=== PATIENT | female | born 1950 | race Caucasian/White ===

== ENCOUNTER → 2018-08-19 08:05 | Outpatient (CLI) | payer BC, SELFPAY ==
[2018-08-19 10:37] LABS: Anion Gap 10 (5-15); BUN 18 mg/dL (7-18); BUN/Creat Ratio 21.9 RATIO (10-20); Calcium,Total 9.2 mg/dL (8.5-10.1); Chloride 104 mmol/L (98-107); Cholesterol 186 mg/dL (200); Creatinine, Serum 0.82 mg/dL (0.55-1.02); EST Glomerular Filtration Rate 74 mL/min (>60); Est Glom Filt Rate - Afr Amer 90 mL/min (>60); Glucose 97 mg/dL (74-106); High Density Lipoprotein 70 mg/dL; Potassium 4.1 mmol/L (3.5-5.1); Sodium Level 139 mmol/L (136-145); Triglycerides 190 mg/dL; Very Low Density Lipoprotein 38 mg/dL (5-40)
== END ==
PROVIDERS: Family Provider Family Medicine; PCP Family Medicine; Visit Provider Family Medicine
DX: I10 Essential (primary) hypertension (principal)
CPT/HCPCS: 36415; 80048; 80061

== ENCOUNTER → 2018-10-06 07:37 | Outpatient (CLI) | payer BC, SELFPAY ==
--- NOTE | 2018-10-06 07:41 | BI_ITS ---
MAMMOGRAPHY - BILATERAL SCREENING REASON FOR EXAM: Female, 67 years old. Routine annual screening examination. PERTINENT HISTORY: Personal history of breast cancer. Prior right lumpectomy with radiation and chemotherapy. Mother with breast cancer. TECHNIQUE: Digital bilateral breast antonio (3D mammographic acquisition) in the CC and MLO projections. 2-D mediolateral oblique (MLO) and craniocaudad (CC) views of both breasts were obtained. CAD: Full Field Digital Mammography with Computer Added Detection was performed. COMPARISON: Comparison is made with prior study dated July 23, 2017 and June 15, 2016. FINDINGS: Breast Composition: There are scattered areas of fibroglandular density. There are no dominant masses or suspicious calcifications. The patient is status post lumpectomy in the inferior deep slightly medial aspect of the right breast with resultant postoperative changes and scarring. Surgical clips are also seen in the right axillary region. Stable appearance of the small bilateral axillary lymph nodes. No other significant abnormalities are identified. There has been no significant change since the prior study. BI/SCREENING MAMM (CAD), BILAT IMPRESSION: Stable bilateral screening mammogram. Yearly follow-up mammogram recommended. (A) ASSESSMENT CATEGORY: BIRADS Category 2: Benign. A letter regarding these results will be sent to the patient by the facility within 30 days. Approximately 10% of breast cancers are not detected by mammography. A normal mammogram should not delay biopsy of a clinically suspicious abnormality. [id number] Electronically Signed: Rashid Iniguez MD at 9:39 EST , Service support ,
== END ==
PROVIDERS: Family Provider Family Medicine; PCP Family Medicine; Visit Provider Family Medicine
DX: Z12.31 Encounter for screening mammogram for malignant neoplasm of breast (principal); Z85.3 Personal history of malignant neoplasm of breast; Z80.3 Family history of malignant neoplasm of breast
CPT/HCPCS: 77063; 77067

== ENCOUNTER → 2018-10-20 10:46 | Outpatient (CLI) | payer BC, SELFPAY ==
[2015-09-05 23:55] VITALS: BMI 30.9
[2018-10-24 09:09] LABS: Alternaria alternata <0.10 kU/L (Class 0); Aspergillus fumigatus <0.10 kU/L (Class 0); Bahia Grass <0.10 kU/L (Class 0); Bermuda Grass <0.10 kU/L (Class 0); Bluegrass, Kentucky <0.10 kU/L (Class 0); Cat Hair/Dander, Standard <0.10 kU/L (Class 0); Cedar, Mountain <0.10 kU/L (Class 0); Cladosporium herbarum <0.10 kU/L (Class 0); Cockroach, American <0.10 kU/L (Class 0); D farinae Mite <0.10 kU/L (Class 0); D pteronyssinus <0.10 kU/L (Class 0); Dog Epithelia <0.10 kU/L (Class 0); Elm, American White <0.10 kU/L (Class 0); Hazelnut Tree <0.10 kU/L (Class 0); Hickory, White <0.10 kU/L (Class 0); Johnson Grass <0.10 kU/L (Class 0); Maple/Box Elder <0.10 kU/L (Class 0); Mucor racemosus <0.10 kU/L (Class 0); Mugwort <0.10 kU/L (Class 0); Mulberry, White <0.10 kU/L (Class 0); Oak, White <0.10 kU/L (Class 0); Penicillium chrysogen <0.10 kU/L (Class 0); Pigweed, Rough <0.10 kU/L (Class 0); Plantain, English <0.10 kU/L (Class 0); Ragweed, Short/Common <0.10 kU/L (Class 0); Sheep Sorrel(Dock) <0.10 kU/L (Class 0); Stemphylium herbarum <0.10 kU/L (Class 0); Sweet Gum <0.10 kU/L (Class 0); Sycamore, American <0.10 kU/L (Class 0)
[2018-10-24 11:00] LABS: Nettle <0.10 kU/L (Class 0)
== END ==
PROVIDERS: Family Provider Family Medicine; PCP Family Medicine; Visit Provider Family Medicine
DX: L30.9 Dermatitis, unspecified (principal)
CPT/HCPCS: 36415; 86003

== ENCOUNTER → 2019-07-07 08:55 | Outpatient (CLI) | payer BC, SELFPAY ==
[2019-07-07 10:17] LABS: Absolute Lymphocyte Count 7.93 X10^3/uL (0.83-4.51); Absolute Neutrophil Count 6.4 X10^3/uL (2.0-7.7); Basophil# 0.08 X10^3/uL; Basophil% 0.5 % (0-1); Eosinophil# 0.55 X10^3/uL; Eosinophils% 3.4 % (0-5); Hematocrit 46.7 % (37-47); Hemoglobin 14.8 g/dL (12.0-15.0); Lymphocyte # 7.93 X10^3/ul (4.0); Lymphocyte % 48.6 % (19-41); Mean Corp Hgb Conc 31.7 g/dL (32-36); Mean Corpuscular Hgb 30.5 pg (27.0-32.0); Mean Corpuscular Volume 96.1 fL (81-99); Mean Platelet Vol. 12.5 fl (6.2-12.0); Monocyte# 1.26 X10^3/uL; Monocyte% 7.7 % (0-10); NRBC Flagged by Analyzer 0 % (0-5); Neutrophil # 6.42 X10^3/uL (2.7-7.7); Neutrophil % 39.3 % (47-70); POSITIVE DIFFERENTIAL YES; POSITIVE MORPHOLOGY YES; Platelet Count 314 K/mm3 (150-450); RBC Distribution Width CV 12.9 % (11.6-14.6); RBC Distribution Width SD 45.7 fl (35.1-43.9); Red Blood Count 4.86 M/mm3 (4.2-5.4); White Blood Count 16.3 K/mm3 (4.4-11.0)
[2019-07-07 10:19] LABS: Differential Indicated SCAN CRITERIA MET
[2019-07-07 10:42] LABS: Reactive Lymphocyte 2+
[2019-07-07 10:46] LABS: AST(SGOT) 13 U/L (15-37); Alanine Aminotransfer ALT/SGPT 20 U/L (13-56); Albumin, Serum 3.3 g/dL (3.2-5.0); Alkaline Phosphatase 108 U/L (45-117); Anion Gap 8 (5-15); BUN 14 mg/dL (7-18); BUN/Creat Ratio 15.9 RATIO (10-20); Calcium,Total 9.1 mg/dL (8.5-10.1); Chloride 102 mmol/L (98-107); Creatinine, Serum 0.88 mg/dL (0.55-1.02); EST Glomerular Filtration Rate 68 mL/min (>60); Est Glom Filt Rate - Afr Amer 83 mL/min (>60); Globulin 4.8 g/dL (2.2-4.2); Glucose 95 mg/dL (74-106); Potassium 3.8 mmol/L (3.5-5.1); Protein, Total 8.1 g/dL (6.4-8.2); Sodium Level 137 mmol/L (136-145); T4 Free Direct 1.24 ng/dL (0.76-1.46); Thyroid Stim Hormone (TSH) 1.38 uIU/mL (0.358-3.74)
== END ==
PROVIDERS: Family Provider Family Medicine; PCP Family Medicine; Referring Provider Dermatology; Visit Provider Dermatology
DX: L20.89 Other atopic dermatitis (principal); Z79.899 Other long term (current) drug therapy
CPT/HCPCS: 36415; 80048; 80076; 84439; 84443; 85025

== ENCOUNTER → 2019-10-08 10:51 | Outpatient (CLI) | payer MEDICARE, SELFPAY ==
--- NOTE | 2019-10-08 11:00 | BI_ITS ---
MAMMOGRAPHY - BILATERAL DIAGNOSTIC REASON FOR EXAM: Female, 68 years old. RIGHT LUMPECTOMY 1997 WITH RAD AND CHEMO TX, NO CURRENT PROBLEMS, NO MOLES, PERSONAL HX CA AGE 45 AND FAM HX CA IN MOTHER AGE 58 PERTINENT HISTORY: Right breast lumpectomy with radiation therapy TECHNIQUE: Digital examination. Mediolateral oblique (MLO) and craniocaudad (CC) views of both breasts were obtained. CAD: COMPARISON: None. FINDINGS: Breast Composition: Scattered dense internal breast structure There are some surgical clips noted in the inferior medial aspect of the right breast due to a previous lumpectomy with radiation therapy for breast cancer. At this time there are some new microcalcifications seen in the left breast approximately 5 cm posterior to the left nipple. These calcifications are extremely difficult to visualize on lateral projection but could be located in the inferior medial aspect of the left breast at about the 7:00 position. Magnified compression spot images and a true lateral projection and a magnified compression spot imaging the MLO projection would be helpful for further evaluation. BI/SCREEN MAMM (CAD) W/GOLDEN BILAT IMPRESSION: Questionable new microcalcifications are noted in the inferior medial aspect of the left breast and additional mammogram imaging of the left breast is recommended for further evaluation ASSESSMENT CATEGORY: BIRADS Category 0: Incomplete. Need additional imaging evaluation. A letter regarding these results will be sent to the patient by the facility within 30 days. FOLLOW UP RECOMMENDATION: Approximately 10% of breast cancers are not detected by mammography. A normal mammogram should not delay biopsy of a clinically suspicious abnormality. Electronically Signed: Stefano Cordoba, at 18:55 EST Tel , Service support ,
== END ==
PROVIDERS: PCP Family Medicine; Referring Provider Family Medicine; Visit Provider Family Medicine
DX: Z12.31 Encounter for screening mammogram for malignant neoplasm of breast (principal)
CPT/HCPCS: 77063; 77067

== ENCOUNTER → 2019-10-12 12:12 | Outpatient (CLI) | payer MEDICARE, SELFPAY ==
--- NOTE | 2019-10-12 12:18 | BI_ITS ---
MAMMOGRAPHY - UNILATERAL DIAGNOSTIC: LEFT BREAST REASON FOR EXAM: Female, 68 years old. Abnormal screening mammogram. PERTINENT HISTORY: Personal history of breast cancer. Prior right lumpectomy with radiation therapy. TECHNIQUE: Compression and magnification views of the left breast were obtained. CAD: Full Field Digital Mammography with Computer Added Detection was performed. COMPARISON: Comparison is made with prior mammogram dated October 08, 2019. FINDINGS: Breast Composition: There are scattered areas of fibroglandular density. The calcifications in the central slightly medial aspect of the left breast appear to be vascular in nature. No other significant abnormalities are identified. BI/DIAG MAMM W/CAD, UNILAT IMPRESSION: The calcifications appear to be vascular in nature. One year follow-up mammogram recommended. (A) ASSESSMENT CATEGORY: BIRADS Category 2: Benign. A letter regarding these results will be sent to the patient by the facility within 30 days. Approximately 10% of breast cancers are not detected by mammography. A normal mammogram should not delay biopsy of a clinically suspicious abnormality. Electronically Signed: Rashid Iniguez, at 13:07 EST , Service support ,
--- NOTE | 2019-10-12 12:18 | US_ITS ---
STUDY: ULTRASOUND BREAST - LEFT REASON FOR EXAM: Female, 68 years old. Abnormal mammogram. TECHNIQUE: Axial and longitudinal images of the LEFT breast were performed with a high resolution ultrasound transducer. # OF IMAGES: 31 COMPARISON: Comparison is made with prior mammogram dated October 08, 2019. FINDINGS: LEFT Breast: There is a 6 mm x 6 mm x 6 mm hypoechoic irregular nodule with minimal posterior acoustical shadowing at the 12:00 position of the breast at 6 cm from the nipple. A biopsy is recommended. US/Breast Limited Unilateral IMPRESSION: 6 mm x 6 mm x 6 mm slightly irregular hypoechoic solid nodule at the 2:00 position of the breast at 6 cm from the nipple. Mild posterior shadowing. A biopsy is recommended. ASSESSMENT CATEGORY: BIRADS Category 4: Suspicious - Biopsy Should Be Considered. A letter regarding these results will be sent to the patient by the facility within 30 days. Electronically Signed: Rashid Iniguez, at 13:08 EST , Service support ,
== END ==
PROVIDERS: PCP Family Medicine; Referring Provider Family Medicine; Visit Provider Family Medicine
DX: N63.21 Unspecified lump in the left breast, upper outer quadrant (principal); Z85.3 Personal history of malignant neoplasm of breast
CPT/HCPCS: 76642; 77065

== ENCOUNTER → 2019-10-16 | Outpatient (CLI) | payer MEDICARE, SELFPAY ==
--- NOTE | 2019-10-16 | IMM_PTH ---
PATIENT: SHRUTHI RODRIGUEZ LOC: [facility] U#:[id number] AGE/SX: 68/F ROOM: RE10/16/[address]: Dr. Anil Howard MD : 1950 BED: DIS: 10/16/2019 SPEC #: [id number] RECD: 10/19/19 14:02 STATUS: ZAFAR REShira #: [id number] GERONIMO: 10/16/19 00:[address]: Anil Howard DEPT: IMMUNOHISTOCHEMISTRY RECD BY: Talia Alfonso ENTERED: 10/19/19 14:03 SP TYPE: IMMUNO OTHR DR: Dr. Link Carroll MD Tissues: Left breast, NOS Procedures: CALPONIN-1 (add) CK5-6 (add) CK8 (add) AYERS-2 (add) E-CAD (add) HER2 CASIE (add) KI-67 (add) P53 (add) WI (add) P40 (add) ER (initial) PHYSICIAN & INSTITUTION [address] [address] SPECIMEN INFORMATION: Tissue Source: Left breast tissue Clinical Info: Abnormal left breast ultrasound Specimen Number: [id number] CPT code: 03174, 25881 x7, 94622 x3 METHODOLOGY: Deparaffinized sections of prefer/formalin-fixed tissue or PAP/DQ stained slides are incubated with monoclonal/polyclonal antibodies/oligonucleotide probes. Localization is made via biotin free immunoperoxidase method. Appropriate controls are performed and reacted as expected. Results on target cell population are indicated in the following table: RESULTS: ANTIBODY / CLONE RESULT P53 (DO-7) positive, 5% Ki-67 (30-9) positive, 10% CK8 (75clsgS65) positive CK5-6 (D5 & 1684) negative Calponin-1 (QP191T) negative P40 (BC28) negative E-Cad (ECH-6) positive AYERS-2 (SP21) positive MORPHOMETRIC ANALYSIS ER (clone 6F11) >95% WI (clone 16/1E2) >95% Her-2Neu (clone CB11) 1+ The prognostic test for HER2 is performed on formalin-fixed paraffin embedded tissue. A 3+ (positive) staining pattern is defined as intense, homogeneous, complete, circumferential membranous staining in >10% of contiguous tumor cells. A similar weak (2+) staining pattern is interpreted as equivocal. LIZA follow-up testing is recommended for all equivocal cases. Positivity/negativity for ER/WI is reported if > or < 1% of the tumor cells are immuno- reactive, respectively. The ASCO/CAP criteria is used for scoring. Reference: Journal of Clinical Oncology, 2013; 31:6366-6021 & 2010; 16:5463-1620. Duration of fixation: 78 Hrs; Sample Adequate: Yes. These assays have not been validated on decalcified tissues. Results should be interpreted with caution given the likelihood of false negativity on decalcified specimens. These tests were developed and their performance characteristics determined by [facility]. They may not have been cleared or approved by the U.S. Food and Drug Administration. The FDA has determined that such clearance or approval is not necessary. The above immunohistochemical/dualISH markers are ordered and reviewed by the Pathologist. INTERPRETATION: Left breast, core biopsy: Invasive ductal carcinoma. Positive for estrogen receptors (favorable prognostic indicator). Positive for progesterone receptors (favorable prognostic indicator). Negative for overexpression of TXC4fvx. AM:frederick 10/20/19
--- NOTE | 2019-10-16 07:30 | BRBX_PTH ---
PATIENT: SHRUTHI RODRIGUEZ LOC: [facility] U#:[id number] AGE/SX: 68/F ROOM: RE10/16/[address]: Dr. Anil Howard MD : 1950 BED: DIS: 10/16/2019 SPEC #: [id number] RECD: 10/16/19 12:32 STATUS: ZAFAR BRETT #: [id number] GERONIMO: 10/16/19 07:[address]: Anil Howard DEPT: SURGICAL PATHOLOGY RECD BY: Moy Child ENTERED: 10/16/19 13:33 SP TYPE: BREAST BX OTHR DR: Dr. Link Carroll MD Tissues: Left breast, NOS Procedures: Surgery Specimen Level IV HEADER OPERATION: Left breast biopsy PRE-OP DIAGNOSIS: Abnormal left breast ultrasound TISSUE SUBMITTED: Left breast tissue FIXATION TIME: 78 hours MICROSCOPIC DIAGNOSIS Left breast, ultrasound-guided needle core biopsy: Invasive ductal carcinoma with the following characteristics: Maximal length - 8 millimeters Nuclear grade - 1-09/14 AM:frederick 10/19/19 COMMENT ER/VT/Yqg7hev studies are being performed on sections of tumor and the results from this study will be reported separately ([id number]). Reference is made to the patient's lower mid right breast, needle core biopsy from 1994 ([id number]) in which invasive mammary carcinoma was identified. MICROSCOPIC DESCRIPTION Slides are reviewed. GROSS DESCRIPTION Received in fixative is one container labeled with the patient's name and designated left breast. The specimen consists of one elongated fragment of villalobos soft tissue measuring 1 cm in length and 0.1 cm in diameter. The specimen is totally submitted in one cassette. / SJ:frederick 10/16/19 TC:0 CPT: 03975
[2019-10-16 08:49] VITALS: BMI 30.9
== END | disposition home or self-care (01) ==
LOC: LABSPEC 13:11
PROVIDERS: PCP Family Medicine; Referring Provider Surgery; Visit Provider Surgery
DX: R92.8 Other abnormal and inconclusive findings on diagnostic imaging of breast (principal)
CPT/HCPCS: 88305; 88341; 88342

== ENCOUNTER 2019-10-28 07:31 | Day surgery (SDC) | payer MEDICARE, SELFPAY ==
--- NOTE | 2019-10-26 02:17 | HP_ITS ---
Intake Vital Signs 10/26/19 Height 5 ft 10/26/19 Weight: 160 lb 10/26/19 BMI 31.2 10/26/19 BP 137/85 H 10/26/19 Blood Pressure Location Rt brachial 10/26/19 Position Sitting 10/26/19 Respiration 18 10/26/19 Pulse 79 10/26/19 Pulse Source Monitor 10/26/19 Temp 97.8 F 10/26/19 Temp Source Oral 10/26/19 Pulse Oximetry (%) 98 10/26/19 Oxygen Delivery Method room air Intake Visit Reasons: 1WK F/U Breast BX Chief Complaint: discuss surgery for breast cancer Trust Clerk Required: No Accompanied by: Is patient in pain?: No Allergies No Known Allergies Allergy (Verified 10/26/19 13:01) Medications dupilumab SUBCUT 10/13/19 [History Confirmed 10/26/19] lisinopril 10 mg-hydrochlorothiazide 12.5 mg tablet 1 tab PO DAILY tab 10/13/19 [History Confirmed 10/26/19] nystatin 100,000 unit/gram topical powder 1 applic TOPICAL BID #30 g 10/13/19 [Rx Confirmed 10/26/19] triamcinolone acetonide 0.1 % topical cream TOPICAL 10/13/19 [History Confirmed 10/26/19] PFSH Medical History Gout (Acute) Candidiasis of breast (Acute) Abnormal ultrasound of breast (Acute) Abnormal mammogram of left breast (Acute) Hypertension (Chronic) Hx of breast cancer (Acute) Tobacco abuse (Acute) Acute appendicitis with generalized peritonitis (Acute) Thickened endometrium (Acute) Breast cancer, left (Acute) Surgical History Hx of appendectomy (Acute) History of lumpectomy of right breast (Acute) History of left breast biopsy (Acute ~10/2019) Family History Mother Breast cancer Hypertension Diabetes Daughter Asthma Social History (Updated 10/26/19 @ 14:[address] Anil Howard MD) Smoking Status: Current every day smoker alcohol intake: never substance use type: does not use caffeine: Yes what type of physical activity do you participate in: walking frequency: 5-6 times per week HPI HPI HPI: SHRUTHI RODRIGUEZ, is a 68 F who presents to the office today for HPI HPI Surgical H&P: Yes HPI: SHRUTHI RODRIGUEZ is a 68 F who presents to the office today for surgical follow- up of her ultrasound-guided needle core biopsy upper outer quadrant left breast 2:00 +8 cm on my inspection. I performed that biopsy for her on October 16, 2019. I have been out of town for 1 week. She returns on my very first day back. Final pathology shows invasive ductal carcinoma with nuclear grade 1-2 over 3. Estrogen receptor 95%. Progesterone receptor 95%. HER-2/samuel 1+. HPI HPI: SHRUTHI RODRIGUEZ is a 68 F who presents to the office today for surgical consultation regarding an abnormal left breast mammogram and ultrasound. The patient is referred by her primary care physician Dr. Link Carroll and a written copy of her surgical consult recommendations will return to him. 68-year-old female. A0. Menarche at age 13. First child was born when she was 20. She did not breast-feed. She does have a personal history of upper outer quadrant right breast cancer at age 45 and she has a family history of breast cancer in her mother at age 58. She underwent previous breast conservation surgery right breast with lumpectomy and radiation treatment. She does not currently have an ongoing oncologic care or relationship. Looking back at bilateral screening mammograms of October 06, 2018 there is evidence of the right breast lumpectomy. Appears to be stable with small bilateral axillary lymph nodes. On that examination the written report suggested no acute findings. This appeared to be similar was compared to a screening mammogram of July 23, 2017. It is of note that October 06, 2018 there is no finding or discussion of abnormality upper outer quadrant left breast. On her current mammogram of October 08, 2019 however there is discussion regarding calcifications 5 cm posterior to the left nipple 7 o'clock position. Further evaluation with diagnostic films recommended in the diagnostic films suggested that these were vascular in nature. Additionally on the screening examination there was felt to be an ovoid area of increased density in the upper outer quadrant left breast which was seen previously and was felt to have increased in size. It was for that reason that a left breast ultrasound was recommended. On October 12, 2019 a left breast ultrasound was obtained suggesting a 6 x 6 x 6 mm hypoechoic irregular nodule with minimal posterior acoustic shadowing 12 o'clock position left breast +6 cm. Biopsy is recommended. Then in the final impression it says solid nodule at the 2 o'clock position left breast +6 cm. The images are labeled 2:00 +6 cm so I presume this to be the location ROS General General: Yes breast cancer; no weight change, appetite, fatigue or colon cancer HEENT HEENT: No difficulty swallowing, eye injury, eye surgery, swollen glands or hoarseness Endo Endocrine: No thyroid disease, diabetes mellitus, thyroid cancer, Hair loss, heat intolerance or cold intolerance Skin Skin: Yes rash; no changing moles Breast Breast: Yes left breast lump, abnormal mammogram and abnormal US; no right breast lump, nipple discharge, breast pain or breast enlargement Musc Musculoskeletal: No back problems, arthritis, rheumatoid arthritis, gout or joint pain Cardio Cardiovascular: Yes high blood pressure; no murmur, pacemaker, heart disease, atrial fibrillation, heart attack, heart stent, palpitations, shortness of breat with exertion or chest pain Psych Psychiatric: No depression, anxiety or hearing voices Resp Respiratory: No shortness of breath, No sleep apnea, No cough, No COPD, No asthma, No emphysema, No wheezing Gastro Gastrointestinal: No abdominal pain, No nausea or vomiting, No diarrhea, No constipation, No blood in stool, No acid reflux, No hemorrhoids, No ulcers, No gallbladder problem, No black,tarry stools Wallace Hematologic: No blood thinners, No blood disorders, No bleeding, No anemia, No blood clots Exam Const General: cooperative, comfortable, no acute distress Nutritional Appearance: overweight Orientation: alert, awake [facility] Head: normal to inspection Chest Breast Palpation: No nipple discharge Other: Right breast: Well-healed incision upper quadrant right breast. Postradiation changes. No focal mass. No axillary or clavicular adenopathy Left breast: No nipple discharge. No distortion. No palpable mass. No axillary or clavicular adenopathy Resp Effort & Inspection: normal respiratory effort Auscultation: clear to auscultation bilaterally Cardio Rate: regular rate Rhythm: regular rhythm Heart Sounds: no murmurs GI Palpation: soft, no hepatosplenomegaly Skin Other: Mild erythematous rash lower inner left inframammary fold suspicious for candidiasis Neuro General: alert, awake Extrem General: no calf tenderness bilaterally Psych Affect: normal affect Assessment & Plan Problems 1. Hx of breast cancer Z85.3 2. Abnormal ultrasound of breast R92.8 3. Candidiasis of breast B37.89 ROS General General: Yes breast cancer; no weight change, appetite, fatigue or colon cancer HEENT HEENT: No difficulty swallowing, eye injury, eye surgery, swollen glands or hoarseness Endo Endocrine: No thyroid disease, diabetes mellitus, thyroid cancer, Hair loss, heat intolerance or cold intolerance Skin Skin: Yes rash; no changing moles Breast Breast: Yes left breast lump, abnormal mammogram and abnormal US; no right breast lump, nipple discharge, breast pain or breast enlargement Musc Musculoskeletal: No back problems, arthritis, rheumatoid arthritis, gout or joint pain Cardio Cardiovascular: Yes high blood pressure; no murmur, pacemaker, heart disease, atrial fibrillation, heart attack, heart stent, palpitations, shortness of breat with exertion or chest pain Psych Psychiatric: No depression, anxiety or hearing voices Resp Respiratory: No shortness of breath, No sleep apnea, No cough, No COPD, No asthma, No emphysema, No wheezing Gastro Gastrointestinal: No abdominal pain, No nausea or vomiting, No diarrhea, No constipation, No blood in stool, No acid reflux, No hemorrhoids, No ulcers, No gallbladder problem, No black,tarry stools Wallace Hematologic: No blood thinners, No blood disorders, No bleeding, No anemia, No blood clots Exam Const General: cooperative, healthy appearing, comfortable, no acute distress Nutritional Appearance: average body habitus Orientation: alert, awake HENMT Head: normal to inspection Chest Breast Palpation: No nipple discharge Resp Effort & Inspection: normal respiratory effort Auscultation: clear to auscultation bilaterally Cardio Rate: regular rate Rhythm: regular rhythm Heart Sounds: no murmurs GI Palpation: soft, no hepatosplenomegaly Extrem General: no calf tenderness bilaterally Psych Affect: normal affect Assessment & Plan Problems 1. Malignant neoplasm of upper-outer quadrant of left breast in female, estrogen receptor positive C50.412; Z17.0 Plan Newly diagnosed upper outer quadrant left breast cancer 2:00 plus approximately 8 cm. This is likely at most an 8 mm lesion. I propose for the patient a ultrasound-guided wire localization with nuclear tracer and blue dye left axillary sentinel lymph node biopsy. I have discussed technique, benefit, risk, alternatives. She has had an opportunity to ask and have questions answered. She is aware that she is presenting at the onslaught of the coronavirus pandemic. As she has cancer we will pursue definitive surgical treatment. Cc: Dr. Link Howard M.D., F.A.C.S. Coding Level of Care Code Off vis,est,level 2 Diagnoses Malignant neoplasm of upper-outer quadrant of left breast in female, estrogen receptor positive C50.412; Z17.0 ??Breast location: upper outer quadrant of breast ??Estrogen receptor status: positive ??Patient sex: female ??Laterality: left 10/26/19 1417 <Electronically signed by Anil buenrostro MD> Date _ Anil Howard MD I have re-examined the patient. There are no clinical changes since date of exam.
[2019-10-26 13:01] VITALS: BMI 30.9
--- NOTE | 2019-10-28 | IMM_PTH ---
PATIENT: SHRUTHI RODRIGUEZ LOC: [facility] [place] U#:[id number] AGE/SX: 68/F ROOM: RE10/28/[address]: Dr. Anil Howard MD : 1950 BED: DIS: 10/28/2019 SPEC #: [id number] RECD: 11/02/19 14:43 STATUS: ZAFAR REShira #: [id number] GERONIMO: 10/28/19 00:[address]: Anil Howard DEPT: IMMUNOHISTOCHEMISTRY RECD BY: Talia Alofnso ENTERED: 11/02/19 14:44 SP TYPE: IMMUNO OTHR DR: Dr. Link Carroll MD Tissues: A - Axillary lymph node, NOS Procedures: CK7 (add) Pankeratin (initial) Pankeratin (add) PHYSICIAN & INSTITUTION [place] [id number] SPECIMEN INFORMATION: Tissue Source: A - Axillary sentinel lymph nodes, biopsy Clinical Info: Breast cancer, abnormal breast ultrasound Specimen Number: [id number] A1 & A2 CPT code: 22451, 32785 x3 METHODOLOGY: Deparaffinized sections of prefer/formalin-fixed tissue or PAP/DQ stained slides are incubated with monoclonal/polyclonal antibodies/oligonucleotide probes. Localization is made via biotin free immunoperoxidase method. Appropriate controls are performed and reacted as expected. Results on target cell population are indicated in the following table: RESULTS: ANTIBODY / CLONE RESULT Block A1 AE1-3 (AE1/AE3/PCK26) negative CK7 (OV-TL12/30) negative Block A2 AE1-3 (AE1/AE3/PCK26) negative CK7 (OV-TL12/30) negative These tests were developed and their performance characteristics determined by [facility]. They may not have been cleared or approved by the U.S. Food and Drug Administration. The FDA has determined that such clearance or approval is not necessary. The above immunohistochemical/dualISH markers are ordered and reviewed by the Pathologist. INTERPRETATION: A. Axillary sentinel lymph nodes, biopsy: Two out of two lymph nodes, negative for metastatic carcinoma. DAVY:frederick 11/03/19
--- NOTE | 2019-10-28 | AXNB_PTH ---
PATIENT: SHRUTHI RODRIGUEZ LOC: [facility] [place] U#:[id number] AGE/SX: 68/F ROOM: RE10/28/[address]: Dr. Anil Howard MD : 1950 BED: DIS: 10/28/2019 SPEC #: [id number] RECD: 10/28/19 11:04 STATUS: ZAFAR BRETT #: [id number] GERONIMO: 10/28/19 00:[address]: Anil Howard DEPT: SURGICAL PATHOLOGY RECD BY: Talia Alfonso ENTERED: 10/28/19 12:06 SP TYPE: AX NODE BX OTHR DR: Dr. Link Carroll MD Tissues: A - Axillary lymph node, NOS B - Left breast, NOS C - Left breast, NOS Procedures: Frozen Section (charge) Frozen Section Add'l ([facility]) Surgery Specimen Level IV Surgery Specimen Level V HEADER OPERATION: Ultrasound-guided wire localization lumpectomy with sentinel node PRE-OP DIAGNOSIS: Breast cancer; abnormal ultrasound of breast TISSUE SUBMITTED: A - Linn node sent for FS at 1056, B - Left breast tissue, wire anterior/long suture, lateral/short suture, C - Additional tissue left breast FROZEN SECTION DIAGNOSIS A. Axillary sentinel lymph nodes, biopsy: Two out of two lymph nodes negative for carcinoma. AM:frederick 10/28/19 Case has been reviewed in consultation with Dr. Mayo who concurs with the above diagnosis. IDC: MICROSCOPIC DIAGNOSIS A. Axillary sentinel lymph nodes, biopsy: Two out of two lymph nodes, negative for metastatic carcinoma. See comment. B. 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 See cancer summary below. C. Additional tissue left breast: Fragments of mature adipose tissue, negative for carcinoma. 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 Size (extent) of DCIS: Estimated size (extent) - The DCIS comprise about 25% of the total tumor volume. Number of blocks with DCIS - 3 Architectural pattern - comedo and solid Nuclear grade - grade 2 (intermediate) Necrosis - present, central (expansive comedo necrosis) Lobular carcinoma in situ - not identified. Tumor extension: Skin - skin is not present Nipple - not applicable Skeletal muscle - no skeletal muscle is present. Margin - Invasive carcinoma and ductal carcinoma in situ are 0.4 cm away from the closest inferior margin. Regional lymph nodes: Total number of lymph nodes examined - 2 Total number of sentinel lymph nodes examined - 2 Number of lymph nodes with macrometastasis, micrometastasis and isolated tumor cells - 0 Treatment effect - no known presurgical therapy Lymphvascular invasion - not identified Dermal lymphvascular invasion - not applicable Additional Pathologic Findings - - fibrocystic changes, adenosis and intraductal hyperplasia without atypia. - Hyalinized fibroadenoma with focal calcifications (1.1 x 0.5 cm, measured microscopically). Ancillary Studies: Previously performed on same tumor ([id number] / [id number]) [place]: positive (>95%) [place]: positive (>95%) Her2 samuel ([facility]): negative (1+) Microcalcifications - present in ductal carcinoma in situ and non-neoplastic tissue. Clinical History - Please make reference to previous specimen ([id number]) left breast, ultrasound-guided needle core biopsy with diagnosis of invasive ductal carcinoma. Radiologic findings: Abnormal left breast ultrasound. Pathologic Staging: pT1b pN0(sn) Mx The above summary is in compliance with [employer] (CAP) Cancer Protocols Checklist and [place] Joint Committee on Cancer (AJCC), Staging Manual, 8th Ed. COMMENT A. The lymph nodes are negative for metastatic carcinoma on multiple H & E levels and mmunohisto- chemical stains for cytokeratins ([id number]). Please make reference to previous specimen ([id number]) lower mid right breast, needle core biopsy with diagnosis of invasive mammary carcinoma. Case has been reviewed in consultation with Dr. Tomas who concurs with the above diagnosis. IDC:AM MICROSCOPIC DESCRIPTION Slides are reviewed. GROSS DESCRIPTION A - Received fresh for frozen section consultation labeled with the patient's name is a specimen designated sentinel node. The specimen consists of an irregular fragment of villalobos-yellow fibrofatty tissue measuring 3.5 x 2.5 x 1.5 cm. Dissection reveals two nodules resembling lymph nodes ranging in size from 1.5 to 2 cm. The nodules are bisected and totally submitted for frozen section consultation in two blocks. B - Received fresh for OR consultation labeled with the patient's name is a specimen designated left breast tissue. The specimen consists of a lumpectomy measuring 6.5 x 6 x 2 cm and weighing 38.7 gm. The specimen is differentially inked as follows: anterior - yellow, posterior - black, superior - blue, inferior - green, medial - red and lateral - orange. The specimen is serially sectioned to reveal an irregular white-villalobso lesion measuring 1 x 1 x 0.7 cm. The lesion is located 0.4 cm from its closest (inferior) margin of excision. The proximity of the lesion to its closest margin is conveyed to the surgeon intraoperatively. The remainder of the breast parenchyma is yellow and fatty. No additional lesions are identified. Assembly Leader sections are submitted in ten cassettes as follows: 1 & 2 - perpendicular inked margins, 3 & 4 - tumor, totally submitted, 5-10 - chemical sales representative sections of uninvolved breast parenchyma adjacent to and away from lesion. Note, sections are submitted after additional fixation. C - Received in fixative is one container labeled with the patient's name and designated additional tissue left breast. The specimen consists of multiple irregular fragments of villalobos-yellow soft tissue that in aggregate measure 5 x 5 x 0.3 cm. The specimen is totally submitted in two cassettes. / AM:frederick 10/29/19 TC:0 CPT: 68722 x2, 28127, 22042, 83414, 11607
[2019-10-28] MEDS: Lactated Ringers 1,000 ML 15 ML IV (07:00)
--- NOTE | 2019-10-28 07:24 | EKG12_ITS ---
Test Reason : PRE OP Blood Pressure : / mmHG Vent. Rate : 077 BPM Atrial Rate : 077 BPM P-R Int : 146 ms QRS Dur : 082 ms QT Int : 384 ms P-R-T Axes : 072 036 051 degrees QTc Int : 434 ms Normal sinus rhythm Normal ECG No previous ECGs available Confirmed by GAIL CRANDALL ([id number]), editorial assistant GEMMA GEORGE ([id number]) on 11/02/2019 11:36:32 AM Referred By: Anil Howard Confirmed By:GAIL CRANDALL
--- NOTE | 2019-10-28 07:34 | NM_ITS ---
PROCEDURE: NUCLEAR MEDICINE Injection Panora Node - LEFT breast(s). REASON FOR EXAM: Female, 68 years old. Left breast cancer. TECHNIQUE: Panora node localization using radionuclide methods of the LEFT breast(s) was performed following subcutaneous administration of 1.1 mCi of of sulfur colloid Tc-99m. FINDINGS: 1.1 mCi of technetium labeled sulfur colloid was injected subcutaneously in 4 equal aliquots in the upper outer quadrant of the left breast. NM/Lymph Node Injection Only IMPRESSION: 1.1 mCi of things stable sulfur colloid was injected subcutaneously in 4 equal aliquots in the upper outer aspect of the left breast. Electronically Signed: Rashid Iniguez, at 8:43 EDT , Service support ,
--- NOTE | 2019-10-28 07:48 | RAD_ITS ---
STUDY: X-RAY CHEST REASON FOR EXAM: Female, 68 years old. PRE OP TODAY; -- LEFT BREAST CA TECHNIQUE: PA and lateral views of the chest. COMPARISON: None. FINDINGS: Surgical clips are seen in the right axillary region. The lungs are clear and expanded. There is no demonstrated pleural abnormality. Normal size heart. Normal mediastinum and hector. Normal visualized pulmonary arteries. Normal visualized aortic arch and descending thoracic aorta. Normal visualized thoracic spine. Normal visualized ribs, clavicles, and shoulders. There is no demonstrated abnormality of the visualized soft tissue structures of the upper abdomen. RAD/Chest PA and Lateral IMPRESSION: Normal x-ray examination of the chest. Electronically Signed: Rashid Iniguez, at 8:25 EDT , Service support ,
[2019-10-28 07:54] VITALS: BP 131/59; PULSE 82; RESP 15; TEMP 36.7; O2SAT 97; BMI 33.3
[2019-10-28 08:30] LABS: Hematocrit 43.3 % (37-47); Hemoglobin 14.4 g/dL (12.0-15.0); Mean Corp Hgb Conc 33.3 g/dL (32-36); Mean Corpuscular Volume 93.1 fL (81-99); Mean Platelet Vol. 11.7 fl (6.2-12.0); Platelet Count 308 K/mm3 (150-450); RBC Distribution Width CV 13.2 % (11.6-14.6); Red Blood Count 4.65 M/mm3 (4.2-5.4); White Blood Count 20.8 K/mm3 (4.4-11.0)
[2019-10-28 08:42] LABS: ALB/GLOB Ratio 0.6 RATIO (0.9-2.4); AST(SGOT) 13 U/L (15-37); Alanine Aminotransfer ALT/SGPT 18 U/L (13-56); Alkaline Phosphatase 87 U/L (45-117); Anion Gap 6 (5-15); BUN 15 mg/dL (7-18); Calcium,Total 9.2 mg/dL (8.5-10.1); Chloride 104 mmol/L (98-107); Creatinine, Serum 0.79 mg/dL (0.55-1.02); EST Glomerular Filtration Rate 77 mL/min (>60); Est Glom Filt Rate - Afr Amer 94 mL/min (>60); Estimated Creatinine Clearance 39.75 ml/min; Globulin 4.7 g/dL (2.2-4.2); Glucose 106 mg/dL (74-106); Potassium 3.7 mmol/L (3.5-5.1); Protein, Total 7.7 g/dL (6.4-8.2); Sodium Level 137 mmol/L (136-145)
--- NOTE | 2019-10-28 09:32 | DCINST_ITS ---
Discharge Diet: No Restrictions Discharge Activity: May Not Drive - for 2-3 days or while taking narcotic pain meds. May shower in (days): 1 Lifting Restrictions: 10 pounds for 1 week. Call your doctor if your incision/area has: Continuous Slow Oozing, Sudden In creased Bleeding Call your doctor if you observe: Fever of 101 or Higher Suture Line Care: Avoid Pulling/Pushing, Avoid Pinching/Bending Remove Dressing in (days):: 1 - Remove bulky dressing tomorrow. May leave any opsite dressing for 3-4 days. Keep dressing in place until your follow-up appointment. Additional Dressing/Incision Instructions:: Remove bulky dressing tomorrow. May leave any opsite dressing for 3-4 days. Keep dressing in place until your follow-up appointment. Allergies/Adverse Reactions: Allergies No Known Allergies Allergy (Verified 10/28/19 07:45) Medications to take at Discharge dupilumab 2 ml SUBCUT QMONTH 10/13/19 lisinopril 10 mg-hydrochlorothiazide 12.5 mg tablet 1 tab PO DAILY tab 10/13/19 RX: Melatonin 10 mg PO QHS 10/27/19 Primary Care Physician: Link Carroll MD [Primary Care Provider] - Please Follow Up With: Anil Howard MD When: [phone] Office appt. 7-10 days
[2019-10-28] MEDS: Isosulfan Blue 1% 5 ML Vial (10:35)
--- NOTE | 2019-10-28 11:11 | BI_ITS ---
SURGICAL BREAST SPECIMEN RADIOGRAPH CLINICAL: Document presence of tissue clip marker in biopsy specimen. FINDINGS: Specimen shows presence of tissue clip marker. Electronically Signed: Rashid Iniguez, at 13:20 EDT , Service support , BI/Breast Biopsy Specimen
[2019-10-28] MEDS: Bupivacaine Mpf 0.5% 30 ML VIAL (11:20)
--- NOTE | 2019-10-28 11:35 | PCM.OPRPT ---
Problem List (1) Breast cancer Status: Acute Qualifiers: Breast location: upper outer quadrant of breast Estrogen receptor status: positive Patient sex: female Laterality: left Qualified Code(s): C50.412 - Malignant neoplasm of upper-outer quadrant of left female breast; Z17.0 - Estrogen receptor positive status [ER+] Report of Operation Date of Procedure: 10/28/19 Pre-Operative Diagnosis: Upper outer quadrant invasive ductal carcinoma left breast Post-Operative Diagnosis: Same Surgery/Procedure Performed:: Ultrasound-guided wire localization upper outer quadrant left breast with wire localized lumpectomy. Blue dye and nuclear tracer left axillary sentinel lymph node biopsy Description of Surgical Findings:: The patient had nuclear tracer injected per radiology earlier today. The patient was taken the operating placement table underwent general anesthesia. The left arm was carefully wrapped with soft roll and placed at right angles to the table. The left breast was prepped with alcohol and 3 cc of isosulfan blue dye was injected retroareolar. Massage was performed. Then the left breast and axilla were sterilely prepped and draped. Ultrasound was performed of the upper outer quadrant of the left breast and the density in question with marking clip was identified. Under ultrasound guidance I inserted a Kopan's needle and released the wire. Then I made a slightly oblique incision in the left axilla and sharp and blunt dissection was used to clearly identify the blue dye tracking. I used the neoprobe to confirm the hot lymph nodes. A conglomerate of blue lymph nodes were dissected free with sharp dissection electrocautery dissection. Hemostasis was obtained with hemoclips were needed. The specimen was then sent to pathology. Hemostasis was intact. Using the neoprobe and visualization I did not see any evidence of residual suspicious adenopathy. A curvilinear incision was made in the upper inner quadrant left breast localized by the wire. Sharp dissection carried down through the subcutaneous tissue. Circumferential dissection was performed. The lesion was completely excised. A long suture was placed laterally and a short suture superiorly and the wire exited anteriorly. Hemostasis obtained electrocautery. The periphery of the cavity was marked with hemoclips. Pathology reported to sentinel lymph nodes were negative on frozen section. Pathology reported that the lesion was excised and there was a 4 mm inferior margin. Each wound was closed with a deep layer of interrupted 3-0 Vicryl. The skin edges were approximated running septic of 4-0 Monocryl. Steri-Strips Telfa OpSite dressings applied followed by bulky dry dressings. The otoniel-incisional area for both incisions had been anesthetized with 0.5% Marcaine a total of 30 cc used. The patient was taken to the recovery room in satisfactory edition without apparent complication Specimens include left axillary sentinel lymph nodes x2. Left breast lumpectomy. Drains none. Blood loss minimal. Anil Howard M.D., F.A.C.S. Type of Anesthesia:: General Anesthesiologist: Carmenza Ray
[2019-10-28 11:46] VITALS: BP 131/59; BP 142/76; PULSE 106; RESP 20; TEMP 36.6; O2SAT 95
[2019-10-28 12:00] VITALS: BP 121/61; BP 131/59; PULSE 89; RESP 14; O2SAT 99
[2019-10-28 12:15] VITALS: BP 131/59; BP 137/76; PULSE 87; RESP 16; O2SAT 99
[2019-10-28 12:23] VITALS: BP 131/59; BP 133/72; PULSE 81; RESP 16; TEMP 37.2; O2SAT 95
[2019-10-28] MEDS: HYDROcodone Bitartrate/Apap 5/325 Tablet PO (13:02)
[2019-10-28 13:53] VITALS: BP 130/75; BP 131/59; PULSE 87; RESP 18; TEMP 37.1; O2SAT 96
== END 2019-10-28 14:11 | disposition home or self-care (01) ==
LOC: SDC 07:31 → AC 07:32
PROVIDERS: PCP Family Medicine; Referring Provider Surgery; Visit Provider Surgery
PROC: (CPT 19301; principal; 2019-10-28 09:45)
DX: C50.412 Malignant neoplasm of upper-outer quadrant of left female breast (principal); Z17.0 Estrogen receptor positive status [ER+]; B37.89 Other sites of candidiasis; I10 Essential (primary) hypertension; E66.3 Overweight; Z68.31 Body mass index [BMI] 31.0-31.9, adult; Z87.891 Personal history of nicotine dependence; Z85.3 Personal history of malignant neoplasm of breast; Z80.3 Family history of malignant neoplasm of breast
CPT/HCPCS: 19301; 38500; 38792; 71046; 76098; 80053; 85027; 88305; 88307; 88331; 88332; 88341; 88342; 93005; A9541; J7120; Q9968

== ENCOUNTER → 2020-02-23 08:53 | Outpatient (CLI) | payer MEDICARE, SELFPAY ==
[2019-12-01 13:41] VITALS: BMI 32.9
[2019-12-03 13:08] VITALS: BMI 32.9
[2019-12-10 11:08] VITALS: BMI 33.0
--- NOTE | 2020-02-23 08:56 | BD_ITS ---
STUDY: DUAL ENERGY X-RAY ABSORPTIOMETRY / DXA REASON FOR EXAM: Female, 69 years old. EMT B- CHEMO INDUCED AT 49 -- HX OF BREAST CANCER MULTIPLE TIMES- TAKES AROMATASE INHIBITOR -- HX OF SMOKING 20+ YRS AGO -- TAKES HCTZ -- TAKES CALCIUM AND MULTIVITAMIN -- DOES LITTLE EXERCISE -- LAINA OF 0.5 INCHES TECHNIQUE: Bone Mineral Density (BMD) measurements of lumbar spine and bilateral hips were obtained. COMPARISON: None. FINDINGS: Lumbar Spine (L1-L4): g/cm2 (0.984) / T-score (-1.5) / Z-score (0.1) Findings are suggestive of osteopenia with a low fracture risk. Left Femur Total: g/cm2 (0.760) / T-score (-2.0) / Z-score (-0.7) Left Femoral Neck: g/cm2 (0.730) / T-score (-2.2) / Z-score (-0.7) Right Femur Total: g/cm2 (0.769) / T-score (-1.9) / Z-score (-0.6) Right Femoral Neck: g/cm2 (0.714) / T-score (-2.3) / Z-score (-0.8) BD/Dexa Bone Density Study IMPRESSION: The patient is considered osteopenic as outlined below according to World Gerson Organization (WHO) criteria with a high fracture risk. Reference Information: The T-score is the number of standard deviations above or below the standard which is normal for young adults at their peak bone mineral density. The World Health Organization (WHO) interprets the T-scores as follows: Above -1 Normal bone density Between -1 and -2.5 Osteopenia Equal to / or below -2.5 Osteoporosis As a practical clinical guideline, osteopenia may be graded as follows: Mild -1 through -1.5 Moderate -1.6 through -2.0 Severe -2.1 through -2.4 The Z-score is the number of standard deviations above or below age-matched controls. A Z-score of less than -1.5 would be considered abnormal. References: 1. NIH Osteoporosis and Related Bone Diseases http://www.osteo.org 2. International Society for Clinical Densitometry http://www.iscd.org 3. National Osteoporosis Foundation http://www.nof.org Electronically Signed: Rashid Iniguez, at 15:09 EDT , Service support ,
== END ==
PROVIDERS: PCP Family Medicine; Referring Provider Internal Medicine Hematology & Oncology; Visit Provider Internal Medicine Hematology & Oncology
DX: C50.912 Malignant neoplasm of unspecified site of left female breast (principal); Z78.0 Asymptomatic menopausal state
CPT/HCPCS: 77080

== ENCOUNTER → 2020-10-10 08:51 | Outpatient (CLI) | payer MEDICARE, SELFPAY ==
[2019-12-03 13:08] VITALS: BMI 32.9
[2019-12-10 11:08] VITALS: BMI 33.0
[2020-10-04 13:29] VITALS: BMI 27.2
--- NOTE | 2020-10-10 08:55 | BI_ITS ---
MAMMOGRAPHY - BILATERAL DIAGNOSTIC REASON FOR EXAM: Female, 69 years old. History of prior right lumpectomy with radiation and chemotherapy. PERTINENT HISTORY: Personal history of breast cancer. Mother with breast cancer. TECHNIQUE: Digital bilateral breast antonio (3D mammographic acquisition) in the CC and MLO projections. 2-D mediolateral oblique (MLO) and craniocaudad (CC) views of both breasts were obtained. CAD: Full Field Digital Mammography with Computer Added Detection was performed. COMPARISON: Comparison is made with prior study dated 10/08/2019 FINDINGS: Breast Composition: There are scattered areas of fibroglandular density. There are no dominant masses or suspicious calcifications. Since prior examination, the patient underwent lumpectomy in the upper outer quadrant of the left breast. Surgical clips are also seen in the left axillary region. Postoperative scarring is seen. There is also evidence of prior lumpectomy in the inferior medial portion of the right breast. Surgical clips are also seen in the right axillary region. No other significant abnormalities are identified. BI/DIAG MAMM W/CADHERLINDA IMPRESSION: Status post prior lumpectomy in the upper outer quadrant of the left breast with resection of the previously seen nodular density. One year follow-up recommended. (A) ASSESSMENT CATEGORY: BIRADS Category 2: Benign. A letter regarding these results will be sent to the patient by the facility within 30 days. Approximately 10% of breast cancers are not detected by mammography. A normal mammogram should not delay biopsy of a clinically suspicious abnormality. Electronically Signed: Rashid Iniguez MD at 10:10 EST , Service support ,
== END ==
PROVIDERS: PCP Family Medicine; Referring Provider Student in an Organized Health Care Education/Training Program; Visit Provider Student in an Organized Health Care Education/Training Program
DX: C50.912 Malignant neoplasm of unspecified site of left female breast (principal); Z85.3 Personal history of malignant neoplasm of breast
CPT/HCPCS: 77062; 77066; G0279

== ENCOUNTER → 2020-12-30 09:16 | Outpatient (CLI) | payer MEDICARE, SELFPAY ==
[2019-12-10 11:08] VITALS: BMI 33.0
[2020-11-29 14:58] VITALS: BMI 27.3
[2020-12-30 10:45] LABS: Anion Gap 4 (5-15); BUN 16 mg/dL (7-18); BUN/Creat Ratio 18.2 RATIO (10-20); Calcium,Total 10.1 mg/dL (8.5-10.1); Chloride 101 mmol/L (98-107); Cholesterol 153 mg/dL (200); Creatinine, Serum 0.88 mg/dL (0.55-1.02); EST Glomerular Filtration Rate 68 mL/min (>60); Est Glom Filt Rate - Afr Amer 82 mL/min (>60); Glucose 107 mg/dL (74-106); High Density Lipoprotein 73 mg/dL; Potassium 3.8 mmol/L (3.5-5.1); Sodium Level 136 mmol/L (136-145); Triglycerides 139 mg/dL; Very Low Density Lipoprotein 28 mg/dL (5-40)
== END ==
PROVIDERS: PCP Family Medicine; Referring Provider Family Medicine; Visit Provider Family Medicine
DX: I10 Essential (primary) hypertension (principal)
CPT/HCPCS: 36415; 80048; 80061

== ENCOUNTER → 2021-05-26 10:28 | Outpatient (CLI) | payer MEDICARE, SELFPAY ==
[2019-12-10 11:08] VITALS: BMI 33.0
--- NOTE | 2021-05-26 10:31 | RAD_ITS ---
EXAM: XR BILATERAL RIBS AND AP CHEST, 3 OR MORE VIEWS : 1950 CLINICAL INDICATION: RIB INJURY TECHNIQUE: Frontal and oblique views of the bilateral ribs and frontal view of the chest. This report was created using [employer] ([employer] report generation technology. COMPARISON: None. FINDINGS: LUNGS AND PLEURAL SPACES: Prior surgical changes of the right lung. No consolidation or edema. No pneumothorax. No effusion. HEART: Unremarkable. Cardiac silhouette not enlarged. MEDIASTINUM: Central airways and mediastinal contour are unremarkable. BONES/JOINTS: Unremarkable. No evidence of displaced rib fractures. RAD/Ribs Michael Min 4V w/PA Chest IMPRESSION: Negative chest and bilateral ribs series. at 0723 Reported and signed by: Gilmar Leonard MD Electronically Signed: Gilmar Leonard MD at 7:22 EDT Tel , Service support ,
== END ==
PROVIDERS: PCP Family Medicine; Referring Provider Family Medicine; Visit Provider Family Medicine
DX: S29.9XXA Unspecified injury of thorax, initial encounter (principal); X58.XXXA Exposure to other specified factors, initial encounter
CPT/HCPCS: 71111

== ENCOUNTER 2021-11-09 09:55 | Outpatient (CLI) | payer MEDICARE, SELFPAY ==
[2019-12-10 11:08] VITALS: BMI 33.0
--- NOTE | 2021-11-09 09:56 | BI_ITS ---
MAMMOGRAPHY - BILATERAL SCREENING REASON FOR EXAM: Female, 71 years old. Routine annual screening examination. PERTINENT HISTORY: Personal history of breast cancer. History of prior bilateral lumpectomies with chemotherapy and radiation therapy. TECHNIQUE: Digital bilateral breast golden (3D mammographic acquisition) in the CC and MLO projections. 2-D mediolateral oblique (MLO) and craniocaudad (CC) views of both breasts were obtained. CAD: Full Field Digital Mammography with Computer Added Detection was performed. COMPARISON: Comparison is made with prior study dated 10/10/2020 and 10/12/2019. FINDINGS: Breast Composition: There are scattered areas of fibroglandular density. Once again, the patient is status post lumpectomy in the deep upper lateral aspect of the left breast. Surgical clips are seen in the left axillary region. Stable postoperative scarring and deformity. There is also evidence of a prior lumpectomy in the inferior medial portion of the right breast as well as surgical intervention in the right axillary region. Postoperative scarring and deformity is seen. There has been essentially no change. No other significant abnormalities are identified. There has been no significant change since the prior study. BI/SCRN MAMM (CAD)W/GOLDEN BILAT IMPRESSION: Stable bilateral screening mammogram. Yearly follow-up mammogram recommended. (A) ASSESSMENT CATEGORY: BIRADS Category 2: Benign. A letter regarding these results will be sent to the patient by the facility within 30 days. Approximately 10% of breast cancers are not detected by mammography. A normal mammogram should not delay biopsy of a clinically suspicious abnormality. [id number] Electronically Signed: Rashid Iniguez MD at 10:52 EDT ,
== END 2021-11-09 23:59 | disposition home or self-care (01) ==
LOC: OPBI 09:56
PROVIDERS: PCP Family Medicine; Referring Provider Internal Medicine Hematology & Oncology; Visit Provider Internal Medicine Hematology & Oncology
DX: Z12.31 Encounter for screening mammogram for malignant neoplasm of breast (principal); Z85.3 Personal history of malignant neoplasm of breast
CPT/HCPCS: 77063; 77067

== ENCOUNTER 2022-01-24 13:01 | Emergency (ER) | payer MEDICARE, SELFPAY ==
[2019-12-10 11:08] VITALS: BMI 33.0
[2022-01-24 13:02] VITALS: BP 112/71; PULSE 131; RESP 20; TEMP 38.3; O2SAT 95; BMI 29.2
--- NOTE | 2022-01-24 13:43 | EDS_ITS ---
HPI History of Present Illness Chief Complaint: Nausea/Vomiting Informant: patient Narrative Narrative: -year-old female presenting to the emergency department with fever. She states that last Saturday she developed moist cough nausea poor taste and fever. She sta chicho she saw primary care on Saturday had a negative COVID test and a negative influenza test. She states she was told it was a virus. She states she has not been able to eat because of her nausea. She states that she has not taken anything today for her fever. She states that she cannot believe that this is viral and needs it to be cured. [facility] Medical History Acute appendicitis with generalized peritonitis Breast cancer Candidiasis of breast CLL (chronic lymphocytic leukemia) Gout Hypertension 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 Thickened endometrium Tobacco abuse Home Medications dupilumab [Dupixent Syringe] 2 ml subcut UD 10/13/19 [History Last Taken 09/29/19] lisinopril 10 mg-hydrochlorothiazide 12.5 mg tablet 1 tab PO DAILY htn 10/13/19 [History Last Taken Unknown] melatonin 10 mg sublingual tablet 10 mg PO QHS sleep 10/27/19 [History Last Taken Unknown] calcium-vitamin D3-vitamin K 500 mg-1,000 unit-40 mcg chewable tablet 1 ea PO DAILY 10/13/20 [History Last Taken Unknown] nystatin 100,000 unit/gram topical powder 1 applic topical BID #30 grams 10/14/20 [Rx Last Taken Unknown] anastrozole 1 mg tablet 1 mg PO DAILY 90 days #90 tabs 02/28/21 [Rx Last Taken Unknown] amoxicillin 875 mg-potassium clavulanate 125 mg tablet 875 mg PO Q12H #20 TABLETS 01/24/22 [Rx Last Taken Unknown] azithromycin 250 mg tablet (Zithromax Z-Joe) See Rx Instructions PO .COMPLEX #6 tabs 01/24/22 [Rx Last Taken Unknown] ondansetron 4 mg disintegrating tablet 4 mg PO Q6H PRN PRN Nausea #15 tabs 01/24/22 [Rx Last Taken Unknown] potassium chloride 20 mEq tablet,extended release 40 meq PO DAILY 5 days #10 tabs 01/24/22 [Rx Last Taken Unknown] Allergy/AdvReac Type Severity Reaction Status Date / Time No Known Allergies Allergy Verified 01/24/22 13:02 Family History Mother Diabetes Breast cancer Hypertension Daughter Asthma Pulmonary hypertension Surgical History History of left breast biopsy (~10/2019) History of lumpectomy of left breast (~10/2019) Hx of appendectomy Social History Smoking Status: Former smoker alcohol intake: never substance use type: does not use caffeine: Yes what type of physical activity do you participate in: walking frequency: 5-6 times per week shelby/buddhism: Temple seatbelt use: always do you feel safe at home: Yes ROS ROS ED Constitutional Constitutional ED: Reports fever(s) and sweats; Denies chills or weight loss Eyes Eyes: Denies change in vision or diplopia ENT ENT ED: Denies ear pain, rhinorrhea or sore throat Cardiovascular Cardiovascular: Denies chest pain, orthopnea, palpitations or racing heartbeat Respiratory/Chest Respiratory/Chest: Reports cough; Denies dyspnea or orthopnea Gastrointestinal Gastrointestinal: Reports nausea; Denies abdominal pain, diarrhea or vomiting Genitourinary Genitourinary ED: Denies dysuria, hematuria or urinary frequency Musculoskeletal Musculoskeletal: Reports myalgias; Denies arthralgias Integumentary Denies abscess or rash Neurologic Neurologic: Denies headache(s) or weakness Psychiatric Psychiatric: Denies anxiety, depression, suicidal ideation or suicidal thoughts Endocrine Endocrinology: Denies polydipsia, polyphagia or polyuria Allergic/Immunologic Allergic/Immunologic ED: Denies mouth swelling, tongue swelling or urticaria EXAM Physical Exam Const Vital Signs: 01/24/22 13:02 01/24/22 15:14 Temperature 101.0 F H Temperature Source Temporal Pulse Rate 131 H 103 H Respiratory Rate 20 H 18 Blood Pressure 112/71 121/63 H Blood Pressure Mean 84 82 Pulse Ox 95 94 Oxygen Delivery Method Room Air Room Air Positive well nourished and well developed General Appearance ED: well developed HEENT Reports normocephalic, head/scalp atraumatic and moist mucous membranes Eyes PERRL and EOMs intact bilaterally Neck no lymphadenopathy, supple and no JVD Resp normal respiratory effort and clear to auscultation bilaterally Cardio regular rhythm and no murmurs Rate: tachycardic GI normal to inspection, nondistended, normoactive bowel sounds and non-tender Palpation: soft Back/Spine no CVA tenderness and normal ROM Extremity normal to inspection General Extremety ED: Negative for edema General Extremity: Negative for edema Neuro oriented x3 and CN's II-XII intact bilaterally Sensorium / Orientation: alert Motor Exam: strength 5/5 throughout Psych mental status grossly normal Mood & Affect: tearful; Negative for depressed Skin no rashes or lesions noted and no wounds MDM MDM MDM Narrative Medical decision making narrative: White count 60.3 with 1 glass. Lactic acid is normal at 0.9. MP shows a a creatinine of 0.8 with a BUN of 14 and potassium 3. Urinalysis is negative. My interpretation of the chest x-ray is a left upper lobe infiltrate. COVID influenza swabs were negative. After fluids Toradol and acetaminophen her heart rate is down. She is not requiring any supplemental oxygen. Patient was started on Augmentin and azithromycin as well as albuterol MDI. We need to replace some potassium and I will also write for some Zofran to help with her nausea. Return if worsening or concerns Lab Data Attestation: I reviewed the patient's lab results. Labs: Laboratory Results - last 24 hr 01/24/22 01/24/22 01/24/22 14:05 14:05 14:05 WBC 60.3 H* RBC 3.59 L Hgb 11.0 L Hct 32.6 L MCV 90.8 MCH 30.6 MCHC 33.7 RDW Std Deviation 47.6 H RDW Coeff of Carissa 14.3 Plt Count 613 H MPV 10.1 Immature Gran % (Auto) [employer] OPERATOR Neut % (Auto) FURNACE UTILITY OPERATOR Lymph % (Auto) FURNACE UTILITY OPERATOR [place] % (Auto) FURNACE UTILITY OPERATOR Eos % (Auto) FURNACE UTILITY OPERATOR Baso % (Auto) FURNACE UTILITY OPERATOR Absolute Neuts (auto) 26.5 H Absolute Lymphs (auto) 28.34 H Total Counted 100 Neutrophils % (Manual) 42 L Band Neutrophils % 2 Lymphocytes % (Manual) 47 H Monocytes % (Manual) 7 Promyelocytes % 1 H Blast Cells % 1 H* Nucleated RBC % [employer]URNACE UTILITY OPERATOR Diff Path Review May foll Platelet Estimate MKD INC RBC Morphology NORM C+C Sodium 134 L Potassium 3.0 L Chloride 97 L Carbon Dioxide 30.0 Anion Gap 7 BUN 14 Creatinine 0.80 Estim Creat Clear Calc 47.67 Est GFR (MDRD) Af Amer 91 Est GFR (MDRD) Non-Af 76 BUN/Creatinine Ratio 17.5 Glucose 133 H Lactic Acid 0.9 Calcium 9.4 Total Bilirubin 0.80 AST 16 ALT 17 Alkaline Phosphatase 304 H Total Protein 7.4 Albumin 1.8 L Globulin 5.6 H Albumin/Globulin Ratio 0.3 L Urine Color Urine Clarity Urine pH Ur Specific [place] Urine Protein Urine Glucose (UA) Urine Ketones Urine Occult Blood Urine Nitrite Urine Bilirubin Urine Urobilinogen Ur Leukocyte Esterase Urine RBC Urine WBC Ur Squamous Epith Cells Urine Bacteria Urine Mucus 01/24/22 14:25 WBC RBC Hgb Hct MCV MCH MCHC RDW Std Deviation RDW Coeff of Carissa Plt Count MPV Immature Gran % (Auto) Neut % (Auto) Lymph % (Auto) [place] % (Auto) Eos % (Auto) Baso % (Auto) Absolute Neuts (auto) Absolute Lymphs (auto) Total Counted Neutrophils % (Manual) Band Neutrophils % Lymphocytes % (Manual) Monocytes % (Manual) Promyelocytes % Blast Cells % Nucleated RBC % Diff Path Review Platelet Estimate RBC Morphology Sodium Potassium Chloride Carbon Dioxide Anion Gap BUN Creatinine Estim Creat Clear Calc Est GFR (MDRD) Af Amer Est GFR (MDRD) Non-Af BUN/Creatinine Ratio Glucose Lactic Acid Calcium Total Bilirubin AST ALT Alkaline Phosphatase Total Protein Albumin Globulin Albumin/Globulin Ratio Urine Color Thea Urine Clarity Sl. Cloudy Urine pH 6.0 Ur Specific [place] 1.010 Urine Protein 30 H Urine Glucose (UA) Normal Urine Ketones Negative Urine Occult Blood 50 H Urine Nitrite Negative Urine Bilirubin 1 H Urine Urobilinogen 1 H Ur Leukocyte Esterase 100 H Urine RBC 0-5 SEEN Urine WBC 0-5 SEEN Ur Squamous Epith Cells 0-5 SEEN Urine Bacteria 1+ Urine Mucus RARE Radiography Diagnostic Testing: Clinical Impression(s) from Imaging Studies Chest X-Ray 01/24/22 14:27 IMPRESSION: Infiltrate in the left lung apex suggestive of pneumonic infiltration although radiographic follow-up is recommended following treatment. Electronically Signed: Rashid Iniguez MD at 14:40 EDT , Discharge Plan Triage Chief Complaint: Nausea/Vomiting ED Provider: Torin Qureshi Dx/Rx/DC Orders Clinical Impression: Pneumonia Instructions: ED Pneumonia (Adult) Prescriptions: New amoxicillin-pot clavulanate [amoxicillin-pot clavulanate] 875-125 mg tablet 875 mg PO Q12H Qty: 20 0RF azithromycin [Zithromax Z-Joe] 250 mg tablet See Rx Instructions .ROUTE .COMPLEX Qty: 6 0RF Rx Instructions: For 250 mg dose pack: take 500 mg today (day 1), then 250 mg for 4 days (days 2-5) ondansetron [ondansetron] 4 mg tablet,disintegrating 4 mg PO Q6H PRN PRN (Reason: Nausea) Qty: 15 0RF potassium chloride 20 mEq tablet extended release 40 meq PO DAILY 5 Days Qty: 10 0RF No Action lisinopril-hydrochlorothiazide 10-12.5 mg tablet 1 tab PO DAILY Label Comments: take 1 tablet by mouth once daily dupilumab 2 ml subcut UD Label Comments: on hold. every other week Rx Instructions: TWICE A MONTH (EVERY 2 WEEKS) nystatin 100,000 unit/gram powder 1 applic TOPICAL BID Qty: 30 1RF melatonin 10 MG tablet 10 mg PO QHS calcium-vitamin D3-vitamin K 1 EACH tablet,chewable 1 ea PO DAILY anastrozole 1 mg tablet 1 mg PO DAILY 90 Days Qty: 90 3RF Primary Care Provider: Link Carroll Referrals: Link Carroll MD [Primary Care Provider] - 1 Week Disposition Disposition: Home, Self Care
[2022-01-24] MEDS: 0.9% Normal Saline 1,000 ML 1000 ML IV (14:18)
[2022-01-24] MEDS: Ketorolac 30 MG/ML Syringe IV (14:18)
[2022-01-24] MEDS: Acetaminophen 500 MG Tablet 1000 MG PO (14:18)
[2022-01-24 14:20] LABS: Hematocrit 32.6 % (37-47); Mean Corp Hgb Conc 33.7 g/dL (32-36); Mean Corpuscular Hgb 30.6 pg (27.0-32.0); Mean Corpuscular Volume 90.8 fL (81-99); Mean Platelet Vol. 10.1 fl (6.2-12.0); POSITIVE COUNT YES; POSITIVE DIFFERENTIAL YES; POSITIVE MORPHOLOGY YES; Platelet Count 613 K/mm3 (150-450); RBC Distribution Width CV 14.3 % (11.6-14.6); RBC Distribution Width SD 47.6 fl (35.1-43.9); Red Blood Count 3.59 M/mm3 (4.2-5.4)
[2022-01-24 14:25] LABS: White Blood Count 60.3 K/mm3 (4.4-11.0)
--- NOTE | 2022-01-24 14:27 | RAD_ITS ---
STUDY: X-RAY CHEST REASON FOR EXAM: Female, 71 years old. Cough and fever, pt. States calcium shown on PET scan previously TECHNIQUE: Single AP portable view of the chest. COMPARISON: Comparison is made with prior study dated 05/26/2021. FINDINGS: Surgical clips are seen in both axillary regions. Airspace disease is seen in the left lung apex. With the patient''s history, this most likely represents pneumonic infiltration although radiographic follow-up following treatment is recommended. There is no demonstrated pleural abnormality. Normal size heart. Normal mediastinum and hector. Normal visualized pulmonary arteries. Normal visualized aortic arch and descending thoracic aorta. There are degenerative changes of the visualized thoracic spine. Normal visualized ribs, clavicles, and shoulders. There is no demonstrated abnormality of the visualized soft tissue structures of the upper abdomen. RAD/Chest 1 View (Portable) IMPRESSION: Infiltrate in the left lung apex suggestive of pneumonic infiltration although radiographic follow-up is recommended following treatment. Electronically Signed: Rashid Iniguez MD at 14:40 EDT ,
[2022-01-24 14:34] LABS: Color, Urine Amber (Yellow); Glucose, Dipstick Normal (Normal); Ketone-Dipstick Negative (Negative); Leukocyte Esterase-Dipstick 100 /ul (Negative); Nitrite-Dipstick Negative (Negative); Occult Blood-Urine 50 /ul (Negative); Protein-Dipstick 30 mg/dl (Negative); Urine Clarity Sl. Cloudy (Clear); Urine Urobilinogen 1 mg/dl (Normal)
[2022-01-24 14:36] LABS: Urine Bilirubin Dipstick 1 mg/dL (Negative)
[2022-01-24 14:37] LABS: ALB/GLOB Ratio 0.3 RATIO (0.9-2.4); AST(SGOT) 16 U/L (15-37); Alanine Aminotransfer ALT/SGPT 17 U/L (13-56); Albumin, Serum 1.8 g/dL (3.2-5.0); Alkaline Phosphatase 304 U/L (45-117); Anion Gap 7 (5-15); BUN 14 mg/dL (7-18); BUN/Creat Ratio 17.5 RATIO (10-20); Calcium,Total 9.4 mg/dL (8.5-10.1); Chloride 97 mmol/L (98-107); EST Glomerular Filtration Rate 76 mL/min (>60); Est Glom Filt Rate - Afr Amer 91 mL/min (>60); Estimated Creatinine Clearance 47.67 ml/min; Globulin 5.6 g/dL (2.2-4.2); Glucose 133 mg/dL (74-106); Protein, Total 7.4 g/dL (6.4-8.2); Sodium Level 134 mmol/L (136-145)
[2022-01-24 14:40] LABS: Bacteria 1+ /hpf (None Seen); Mucous, Urine RARE /hpf (<or=2+); Red Blood Cells-Urine 0-5 SEEN /hpf (0-5); Squamous Epithelial Cells - UA 0-5 SEEN /hpf (5-10); White Blood Cells 0-5 SEEN /hpf (0-5)
[2022-01-24 14:44] LABS: Lactic Acid 0.9 mmol/L (0.4-1.9)
[2022-01-24 14:52] LABS: Scan Smear per Review Criteria MANUAL DIFF
[2022-01-24 14:53] LABS: Differential Indicated MANUAL DIFF
[2022-01-24 14:56] LABS: Blast 1 % (0-0); Lymphocyte 47 % (19-41); Monocyte 7 % (0-10); Neutrophil-Band 2 % (0-5); Neutrophil-Segmented 42 % (47-70); Platelet Estimate MKD INC (ADEQ); Promyelocyte 1 % (0-0); Total Cells Counted 100 (MANUAL DIFF)
[2022-01-24 14:57] LABS: Red Cell Morphology NORM C+C NORMAL (NORM C&C)
[2022-01-24 15:01] LABS: Absolute Lymphocyte Count 28.34 X10^3/uL (0.83-4.51); Absolute Neutrophil Count 26.5 X10^3/uL (2.0-7.7)
[2022-01-24 15:14] VITALS: BP 121/63; PULSE 103; RESP 18; O2SAT 94
[2022-01-24 15:36] VITALS: BP 123/56; PULSE 100; RESP 16; O2SAT 100
[2022-01-24] MEDS: INHALER, ASSIST DEVICES 1 EACH SPACER INHALATION (15:53)
--- NOTE | 2022-01-24 15:54 | ED.RN ---
PT EDUCATED ON WRITTEN AND VERBAL DISCHARGE INSTRUCTIONS. PT VERBALIZES UNDERSTANDING AND DENIES ANY FURTHER QUESTIONS. PT IV D/C AND COVERED WITH 2X2 GAUZE AND PAPER TAPE. THIS RN CONTACTED RETAIL PHARM[facility], REPORTS PT PRESCRIPTIONS ARE READY. PT PLACED IN WHEELCHAIR AND AWAITING EDUCATION FROM RESPIRATORY THERAPIST ON SPACER AND INHALER USE.
[2022-01-26 10:37] LABS: Pathologist Review Reviewed
--- NOTE | 2022-01-26 21:10 | SUR.HOLD ---
call pt per dr. byers, if not feeling better and/or feverish pt needs to be seen again and possibly admitted.
--- NOTE | 2022-01-26 21:22 | ED.RN ---
dr. byers aware that pt that pt states she is feeling better and is not coming in, states that she has a doctor appt next week to follow up. explained that cx are positive and may need iv atb.
== END 2022-01-24 16:00 | disposition home or self-care (01) ==
PROVIDERS: Emergency Provider Emergency Medicine; PCP Family Medicine; Visit Provider Emergency Medicine
DX: J18.9 Pneumonia, unspecified organism (principal); I10 Essential (primary) hypertension; Z79.899 Other long term (current) drug therapy; Z87.891 Personal history of nicotine dependence
CPT/HCPCS: 71045; 80053; 81001; 83605; 85025; 87040; 87149; 87186; 87428; 94640; 96361; 96374; 99284; J7030; A4216

== ENCOUNTER → 2022-11-12 | Outpatient (CLI) | payer MEDICARE, SELFPAY ==
[2019-12-10 11:08] VITALS: BMI 33.0
--- NOTE | 2022-11-12 13:15 | BI_ITS ---
MAMMOGRAPHY - BILATERAL SCREENING REASON FOR EXAM: Female, 72 years old. Routine annual screening examination. PERTINENT HISTORY: Personal history of breast cancer. Prior bilateral lumpectomy with chemotherapy and radiation treatment. TECHNIQUE: Digital bilateral breast golden (3D mammographic acquisition) in the CC and MLO projections. 2-D mediolateral oblique (MLO) and craniocaudad (CC) views of both breasts were obtained. CAD: Full Field Digital Mammography with Computer Added Detection was performed. COMPARISON: Comparison is made with prior study of November 09, 2021 and October 10, 2020. FINDINGS: Breast Composition: There are scattered areas of fibroglandular density. Once again, the patient is status post lumpectomy in the deep upper lateral aspect of the left breast with resultant breast deformity and skin thickening. Surgical clips are seen in the left axillary region. There is also evidence of prior lumpectomy in the inferior medial portion of the right breast with postoperative scarring and dystrophic calcification. Surgical clips are also seen in the right axilla. No other significant abnormalities are identified. There has been no significant change since the prior study. BI/SCRN MAMM (CAD)W/GOLDEN BILAT IMPRESSION: Stable bilateral screening mammogram. Yearly follow-up mammogram recommended. (A) ASSESSMENT CATEGORY: BIRADS Category 2: Benign. A letter regarding these results will be sent to the patient by the facility within 30 days. Approximately 10% of breast cancers are not detected by mammography. A normal mammogram should not delay biopsy of a clinically suspicious abnormality. [id number] Electronically Signed: Rashid Iniguez MD at 14:42 EDT ,
== END | disposition home or self-care (01) ==
LOC: OPBI 13:13
PROVIDERS: PCP Family Medicine; Visit Provider Student in an Organized Health Care Education/Training Program
DX: Z12.31 Encounter for screening mammogram for malignant neoplasm of breast (principal); Z85.3 Personal history of malignant neoplasm of breast
CPT/HCPCS: 77063; 77067

== ENCOUNTER → 2023-07-23 | Outpatient (CLI) | payer MEDICARE, SELFPAY ==
[2019-12-10 11:08] VITALS: BMI 33.0
[2023-07-23 10:43] LABS: Anion Gap 8 (5-15); BUN 14 mg/dL (7-18); BUN/Creat Ratio 15.9 RATIO (10-20); Chloride 103 mmol/L (98-107); Cholesterol 125 mg/dL (200); Creatinine, Serum 0.88 mg/dL (0.55-1.02); EST Glomerular Filtration Rate 68 mL/min (>60); Est Glom Filt Rate - Afr Amer 82 mL/min (>60); Glucose 109 mg/dL (74-106); High Density Lipoprotein 74 mg/dL; Potassium 3.7 mmol/L (3.5-5.1); Sodium Level 137 mmol/L (136-145); Triglycerides 113 mg/dL; Very Low Density Lipoprotein 23 mg/dL (5-40)
== END | disposition home or self-care (01) ==
LOC: MFPLAB 09:09
PROVIDERS: PCP Family Medicine; Visit Provider Family Medicine
DX: I10 Essential (primary) hypertension (principal)
CPT/HCPCS: 36415; 80048; 80061

== ENCOUNTER → 2023-11-14 | Outpatient (CLI) | payer MEDICARE, SELFPAY ==
[2019-12-10 11:08] VITALS: BMI 33.0
--- NOTE | 2023-11-14 14:03 | BI_ITS ---
MAMMOGRAPHY - BILATERAL SCREENING REASON FOR EXAM: Female, 73 years old. Routine annual screening examination. PERTINENT HISTORY: Personal history of breast cancer. History of prior bilateral lumpectomies with radiation and chemotherapy. Mother with breast cancer. TECHNIQUE: Digital bilateral breast golden (3D mammographic acquisition) in the CC and MLO projections. 2-D mediolateral oblique (MLO) and craniocaudad (CC) views of both breasts were obtained. CAD: Full Field Digital Mammography with Computer Added Detection was performed. COMPARISON: Comparison is made with prior mammogram dated November 12, 2022. FINDINGS: Breast Composition: There are scattered areas of fibroglandular density. The patient is status post lumpectomy in the deep upper lateral aspect of the left breast with resultant breast deformity and skin thickening. Surgical clips are also seen in the left axilla. There is also evidence of prior lumpectomy in the inferior medial portion of the right breast with postoperative scarring and dystrophic calcifications. Surgical clips are seen in the right axilla. No other significant abnormalities are identified. There has been no significant change since the prior study. BI/SCRN MAMM (CAD)W/GOLDEN BILAT IMPRESSION: Stable bilateral screening mammogram. Yearly follow-up mammogram recommended. (A) ASSESSMENT CATEGORY: BIRADS Category 2: Benign. A letter regarding these results will be sent to the patient by the facility within 30 days. Approximately 10% of breast cancers are not detected by mammography. A normal mammogram should not delay biopsy of a clinically suspicious abnormality. [id number] Electronically Signed: Rashid Iniguez MD at 15:10 EDT ,
== END | disposition home or self-care (01) ==
LOC: OPBI 14:03
PROVIDERS: PCP Family Medicine; Referring Provider Internal Medicine Medical Oncology; Visit Provider Internal Medicine Medical Oncology
DX: Z12.31 Encounter for screening mammogram for malignant neoplasm of breast (principal)
CPT/HCPCS: 77063; 77067

== ENCOUNTER → 2024-10-26 | Outpatient (CLI) | payer MEDICARE, SELFPAY ==
[2019-12-10 11:08] VITALS: BMI 33.0
[2024-10-26 12:55] LABS: ALB/GLOB Ratio 0.8 RATIO (0.9-2.4); AST(SGOT) 14 U/L (<=31); Alanine Aminotransfer ALT/SGPT 8 U/L (<=34); Albumin, Serum 3.5 g/dL (3.4-4.8); Alkaline Phosphatase 101 U/L (35-104); Anion Gap 12 (5-15); BUN 13 mg/dL (4-19); BUN/Creat Ratio 15.2 RATIO (10-20); Calcium,Total 10.5 mg/dL (7.6-11.0); Carbon Dioxide 26.9 mmol/L (21.0-32.0); Chloride 101 mmol/L (98-108); Creatinine, Serum 0.83 mg/dL (0.70-1.20); EST Glomerular Filtration Rate 75 (>60); Globulin 4.3 g/dL (2.2-4.2); Glucose 124 mg/dL (70-99); Potassium 4.9 mmol/L (3.3-5.1); Protein, Total 7.8 g/dL (5.9-8.4); Sodium Level 139 mmol/L (133-145); Total Bilirubin 0.45 mg/dL (0.00-1.30)
[2024-10-26 18:34] LABS: Cholesterol 127 mg/dL (<=200); High Density Lipoprotein 58 mg/dL; Low Density Lipoprotein Calc. 46 mg/dL; Triglycerides 114 mg/dL; Very Low Density Lipoprotein 23 mg/dL (5-40); cholesterol:hdl ratio screen 2.19
== END | disposition home or self-care (01) ==
LOC: MFPLAB 09:09
PROVIDERS: PCP Family Medicine; Referring Provider Family Medicine; Visit Provider Family Medicine
DX: I10 Essential (primary) hypertension (principal)
CPT/HCPCS: 36415; 80053; 80061

== ENCOUNTER → 2024-11-16 | Outpatient (CLI) | payer MEDICARE, SELFPAY ==
[2019-12-10 11:08] VITALS: BMI 33.0
--- NOTE | 2024-11-16 12:55 | BI_ITS ---
EXAM: SCRN MAMM (CAD)W/GOLDEN BILAT DATE: 11/16/2024 CLINICAL HISTORY: F, Age 74 y/o , TREATED BREAST CANCER Personal history of breast cancer. She has had prior bilateral lumpectomies with radiation therapy and chemotherapy. Her mother was also diagnosed with breast cancer. BREAST CANCER RISK ASSESSMENT: Has not been calculated. TECHNIQUE: Bilateral screening digital breast tomosynthesis with 2D and 3D images. Computer aided detection. COMPARISON: Prior exam(s) dated 11/14/2023 and 11/12/2022. FINDINGS: TISSUE DENSITY: The breast tissue is composed of scattered area of fibroglandular density. Bilateral Breast Mammographic Findings: Architectural distortion and dystrophic type calcifications are seen in the inferior medial aspect of the right breast and appears stable. Benign vascular calcifications, secretory type calcifications and round calcifications are seen in the right breast. A stable 6 mm well-circumscribed isodense mass in the superior outer, far posterior aspect of the right breast is noted. Radiopaque clips are seen in the axillary region. A benign-appearing stable lymph node is seen. No suspicious masses or suspicious calcifications are seen in the right breast. Architectural distortion, increased density and surgical clips are seen in the superior outer aspect of the left breast at the post lumpectomy site. This area is stable. Surgical clips are seen in the axillary region. Benign vascular calcifications are seen in the breasts. The left breast skin is slightly thickened and there is slight increased density diffusely throughout the left breast compatible with postsurgical and radiation changes. This is a stable finding. There is no mammographic abnormality seen to suggest new or recurrent malignancy. BI/SCRN MAMM (CAD)W/GOLDEN BILAT IMPRESSION: Right Breast: BIRADS 2 BENIGN FINDING. Left Breast: BIRADS 2 BENIGN FINDING. OVERALL FINAL ASSESSMENT: BIRADS 2 BENIGN FINDING RECOMMENDATION: Routine annual follow-up in 1 Year A letter with findings and recommendations will be mailed to the patient. Reading Location: [id number]
== END | disposition home or self-care (01) ==
LOC: OPBI 12:54
PROVIDERS: PCP Family Medicine; Referring Provider Student in an Organized Health Care Education/Training Program; Visit Provider Student in an Organized Health Care Education/Training Program
DX: Z12.31 Encounter for screening mammogram for malignant neoplasm of breast (principal)
CPT/HCPCS: 77063; 77067

== ENCOUNTER → 2025-01-21 | Outpatient (CLI) | payer MEDICARE, SELFPAY ==
[2019-12-10 11:08] VITALS: BMI 33.0
--- NOTE | 2025-01-21 11:08 | RAD_ITS ---
PROCEDURE: RIBS UNIL 2V NO CXR 01/21/2025 REASON FOR EXAM: PAIN TECHNIQUE: Frontal and bilateral oblique views of the bilateral ribs. COMPARISON: 01/24/2022. FINDINGS: Metallic clips are noted in the left chest wall. The lungs are expanded. There is no demonstrated parenchymal abnormality. There is no demonstrated pleural abnormality. Normal heart and pericardium. Normal mediastinum and hector. Normal visualized pulmonary arteries. Normal visualized aortic arch and descending thoracic aorta. Normal visualized thoracic spine. Normal visualized ribs, clavicles, and shoulders. There is no demonstrated abnormality of the visualized soft tissue structures of the upper abdomen. RAD/Ribs Unil 2V No CXR IMPRESSION: No evidence for acute abnormality. No rib fracture is seen. Reading [facility]
== END | disposition home or self-care (01) ==
LOC: MTRAD 11:06
PROVIDERS: PCP Family Medicine; Referring Provider Family Medicine; Visit Provider Family Medicine
DX: R07.81 Pleurodynia (principal)
CPT/HCPCS: 71100

== ENCOUNTER 2025-01-28 18:17 | Emergency (ER) | payer MEDICARE, SELFPAY ==
[2019-12-10 11:08] VITALS: BMI 33.0
[2025-01-28] VITALS (10 sets, daily range): BP systolic 130–161; BP diastolic 73–75; PULSE 81–113; RESP 16–32; TEMP 36.5–36.6; O2SAT 97–99; BMI 28.9
--- OUTSIDE RECORDS SUMMARY | 2025-01-28 18:55 | XMS RPT_ITS | CCD ---
Author Organization [facility] CliniSymn Care Team Providers Care Presto Log Operator Name Role Phone Dr. Link Carroll Primary Care Provider Glen, Dr. Maza Referring Provider Dr. Antony Brothers Attending Provider Dr. Mil Hampton Attending Provider Glen, Dr. Maza Primary Care Provider Glen, Dr. Maza Referring Provider Dr. Antony Brothers Attending Provider Dr. Link Carroll Primary Care Provider Glen, Dr. Maza Referring Provider Dr. Mil Hampton Attending Provider Dr. Antony Brothers Attending Provider Glen, Dr. Maza Primary Care Provider Glen, Dr. Maza Referring Provider Dr. Jae Clarke Attending Provider Dr. Link Carroll Primary Care Provider Glen, Dr. Maza Referring Provider Dr. Antony Brothers Attending Provider LUDIVINA Holm Attending Provider [phone] Glen PETERS, Dr. Maza Primary Care Provider Zev PETERS, Dr. Hardy Attending Provider Lee PETERS, Dr. Anil Souza Referring Provider Glen PETERS, Dr. Maza Referring Provider Vince PETERS, Dr. Rowe Attending Provider Glen PETERS, Dr. Maza Attending Provider Glen PETERS, Dr. Maza Primary Care Provider [phone] Glen PETERS, Dr. Maza Referring Provider Berta CALHOUN, Dr. Jaeger Attending Provider Berta CALHOUN, Dr. Jaeger Referring Provider Zev PETERS, Dr. Hardy Attending Provider Lee PETERS, Dr. Anil Souza Referring Provider Vince PETERS, Dr. Rowe Attending Provider Carroll, Link Attending Unavailable Carroll, Link Referring Unavailable Carroll, Link Primary Care Unavailable Carroll, Link Referring Unavailable Carroll, Link Primary Care Unavailable Berta, Mil Attending Unavailable Prah, Jae Attending Unavailable Carroll, Link Referring Unavailable Carroll, Link Primary Care Unavailable CeAnil rodriguez Referring Unavailable Astonkar, Antony Attending Unavailable Carroll, Link Primary Care Unavailable Carroll, Link Primary Care Unavailable Berta, Mil Attending Unavailable Prah, Jae Attending Unavailable Carroll, Link Referring Unavailable Carroll, Link Primary Care Unavailable Prah, Jae Attending Unavailable Carroll, Link Referring Unavailable Carroll, Link Primary Care Unavailable Berta, Mil Referring Unavailable Carroll, Link Primary Care Unavailable Berta, Mil Attending Unavailable Carroll, Link Attending Unavailable Carroll, Link Referring Unavailable Carroll, Link Primary Care Unavailable Zev PETERS, Dr. Hardy Attending Provider Lee PETERS, Dr. Anil Souza Referring Provider Medications Current Medications Medication Drug Class(es) Dates Sig (Normalized) Sig (Original) calcium carbonate 1250 mg / cholecalciferol 1000 unt / vitamin k 0.4 mg chewable tablet (10 sources) Vitamin D Start: 10-13-2020 take 1 tablet by mouth once daily Calcium-Vitamin D3-Vitamin K 1 EACH tablet,chewable Active 1 NMA PO DAILY October 13, 2020 1:00am Start: 10-13-2020 Calcium-Vitami n D3-Vitamin K Active 1 EACH PO DAILY October 13, 2020 1:00am dupilumab (Dupixent Syringe) (10 sources) Start: 10-13-2019 dupilumab (Dup ixent Syringe) Active 2 ML SC DIRECTED October 13, 2019 2:47pm TWICE A MONTH (EVERY 2 WEEKS) Start: 10-13-2019 dupilumab (Dup ixent Syringe) Active 2 mL SC DIRECTED October 13, 2019 1:00am TWICE A MONTH (EVERY 2 WEEKS) Start: 10-13-2019 dupilumab (Dup ixent Syringe) Active 2 ML SC DIRECTED October 13, 2019 12:00am TWICE A MONTH (EVERY 2 WEEKS) Start: 10-13-2019 dupilumab (Dup ixent Syringe) Active 2 ML SC DIRECTED October 13, 2019 1:00am TWICE A MONTH (EVERY 2 WEEKS) hydroCHLOROthiazide 12.5 mg / lisinopril 10 mg oral tablet (20 sources) Thiazide Diuretic, Angiotensin Converting Enzyme Inhibitor Start: 09-18-2022 Lisinopril-Hydrochlorothiazi de 10-12.5 mg tablet Active 1 {tbl} PO DAILY September 18, 2022 1:00am Start: 09-18-2022 take 1 tablet by cece th once daily Lisinopril-Hydrochlorothiazide Active 1 TABLET PO DAILY September 18, 2022 1:00am Start: 10-13-2019 End: 02-21-2022 Lisinopril-Hydrochlorothiazi de 10-12.5 mg tablet Discontinued 1 {tbl} PO DAILY October 13, 2019 1:00am February 21, 2022 11:00am Start: 10-13-2019 End: 02-21-2022 take 1 tablet by mouth once daily Lisinopril-Hydrochlorothiazide Discontin ued 1 TABLET PO DAILY October 13, 2019 1:00am February 21, 2022 11:00am Start: 09-05-2015 End: 10-13-2019 Lisinopril-Hydrochlorothiazi de 1 TABLET tablet Discontinued 1 {tbl} PO DAILY September 05, 2015 1:00am October 13, 2019 2:47pm Start: 09-05-2015 End: 10-13-2019 take 1 tablet by mouth once daily Lisinopril-Hydrochlorothiazide Discontin ued 1 TABLET PO DAILY September 05, 2015 1:00am October 13, 2019 2:47pm mecobalamin (8 sources) Start: 09-18-2022 take 1 tablet by mouth once daily Mecobalamin (Vitamin B12) 2,500 mcg tablet,chewable Active 2500 ug PO DAILY September 18, 2022 1:00am Start: 09-18-2022 take 2500 ug by mout h once daily Mecobalamin (Vitamin B12) Active 2500 MCG PO DAILY September 18, 2022 12:00am Start: 09-18-2022 take 2500 ug by mout h once daily Mecobalamin (Vitamin B12) Active 2500 MCG PO DAILY September 18, 2022 1:00am melatonin 10 mg sublingual tablet (10 sources) Start: 10-27-2019 take 1 tablet by mouth at bedtime Melatonin 10 MG tablet Active 10 mg PO AT BEDTIME October 27, 2019 12:00am potassium chloride 20 meq extended release oral tablet (9 sources) Start: 01-24-2022 take 2 tablets by mouth once daily Potassium Chloride 20 mEq tablet extended release Active 40 meq PO DAILY 05 16January 24, 2022 12:00am Start: 01-24-2022 take 40 mEq by mouth once jade y Potassium Chloride Active 40 MEQ PO DAILY 05 16January 24, 2022 12:00am Completed/Discontinued Medications Medication Drug Class(es) Dates Sig (Normalized) Sig (Original) acetaminophen 325 mg / HYDROcodone bitartrate 5 mg oral tablet (10 sources) Opioid Agonist Start: 10-28-2019 End: 10-30-2019 Hydrocodone-Acetami nophen 1 TABLET tablet Discontinued 1 {tbl} PO EVERY 6 HOURS NEEDED as needed for Pain 5 2 October 28, 2019 October 29, 2019 12:00am October 30, 2019 12:08am Start: 10-28-2019 End: 10-30-2019 take 1 tablet by mouth every six hours as needed Hydrocodone-Acetaminophen Discontinued 1 TABLET PO EVERY 6 HOURS NEEDED 5 2 October 28, 2019 October 29, 2019 11:08pm acetaminophen 325 mg / oxyCODONE hydrochloride 5 mg oral tablet (20 sources) Opioid Agonist Start: 09-07-2015 End: 10-13-2019 Oxycodone-Acetaminophen 1 TABLET tablet Discontinued 1 - 2 {tbl} PO EVERY 6 HOURS NEEDED as needed for Mod/Severe (pain scale 6-10) September 07, 2015 7:58am October 13, 2019 2:47pm Start: 09-07-2015 End: 10-13-2019 take 1 tablet by mouth every six hours as needed Oxycodone-Acetaminophen Discontinued 1 - 2 TABLET PO EVERY 6 HOURS NEEDED September 07, 2015 6:58am October 13, 2019 1:47pm amoxicillin 875 mg / clavulanate 125 mg oral tablet (9 sources) Penicillin-class Antibacterial Start: 01-24-2022 End: 02-21-2022 take 1 tablet by mouth every twelve hours Amoxicillin-Pot Clavulanate 875-125 mg tablet Discontinued 875 mg PO Q12H January 24, 2022 12:00am February 21, 2022 10:59am anastrozole 1 mg oral tablet (20 sources) Aromatase Inhibitor Start: 12-03-2019 End: 01-07-2024 take 1 tablet by mouth once daily Anastrozole 1 mg tablet Discontinued 0 .ROUTE .COMPLEX July 09, 2023 1:05pm January 07, 2024 8:05am take 1 tablet by mouth once daily azithromycin 250 mg oral tablet (9 sources) Macrolide Antimicrobial Start: 01-24-2022 End: 02-21-2022 Azithromycin (Zithromax Z-Joe) 250 mg tablet Discontinued 0 PO .COMPLEX January 24, 2022 12:00am February 21, 2022 10:59am For 250 mg dose pack: take 500 mg today (day 1), then 250 mg for 4 days (days 2-5) methylPREDNISolone 4 mg oral tablet (10 sources) Corticosteroid Start: 10-16-2019 End: 10-21-2019 take 1 tablet by mouth once Methylprednisolone (Medrol (Joe)) 4 mg tablets,dose pack Discontinued 4 mg PO per package directions 30 12October 16, 2019 1:00am October 20, 2019 12:00am October 21, 2019 12:07am nystatin 100 unt/mg topical powder (10 sources) Polyene Antifungal Start: 10-14-2020 End: 07-19-2023 Nystatin 100,000 unit/gram powder Discontinued 1 NMA TOPICAL TWICE A DAY October 14, 2020 1:00am July 19, 2023 4:24pm Start: 10-14-2020 End: 07-19-2023 Nystatin Discontinued 1 APPL IC TOPICAL TWICE A DAY October 14, 2020 1:00am July 19, 2023 4:24pm ondansetron 4 mg disintegrating oral tablet (9 sources) Serotonin-3 Receptor Antagonist Start: 01-24-2022 End: 07-19-2023 take 1 tablet by mouth every six hours as needed for nausea Ondansetron 4 mg tablet,disintegrating Discontinued 4 mg PO EVERY 6 HOURS NEEDED as needed for Nausea January 24, 2022 3:22pm July 19, 2023 4:24pm Problems Problem Classification Problem Date Documented Da te Episodic/Chronic Administrative/social admission (18 sources) Patient encounter status; Translations: [Counseling, unspecified] Episodic Appendicitis and other appendiceal conditions (10 sources) Acute appendicitis with generalized peritonitis; Translations: [Acute appendicitis with generalized peritonitis, without abscess] 10-14-2020 Episodic Cancer of breast (20 sources) Malignant neoplasm of female breast; Translations: [Malignant neoplasm of unspecified site of left female breast] Onset: 01-19-2025 Chronic Comment on above: No evidence of disea se clinically. No evidence of disea se clinically. Has stopped Anastrozole last month.Has taken it for 5 yrs. Cancer of breast (20 sources) History of malignant neoplasm of breast; Translations: [Personal history of malignant neoplasm of breast] Onset: 01-19-2025 Episodic Deficiency and other anemia (10 sources) Anemia; Translations: [Anemia, unspecified] 07-21-2024 Episodic Comment on above: Hgb is stable, FOBT is negative. Iron level and iron sat is low. Hgb is stable, FOBT is negative. Iron level and iron sat are still low. Has stopped Iron because it makes her sick. Deficiency and other anemia (2 sources) Anemia, unspecified; Translations: [Anemia, unspecified] Onset: 01-19-2025 Episodic Deficiency and other anemia (2 sources) Deficiency and other anemia Diseases of white blood cells (20 sources) Leukocytosis; Translations: [Elevated white blood cell count, unspecified] Chronic Essential hypertension (11 sources) Hypertensive disorder; Translations: [Essential (primary) hypertension] Onset: 11-04-2024 10-28-2019 Chronic Gout and other crystal arthropathies (10 sources) Gout; Translations: [Gout, unspecified] 10-14-2020 Chronic Immunizations and screening for infectious disease (20 sources) Hematopoietic system finding; Translations: [Other specified abnormal immunological findings in serum] Onset: 01-19-2025 Episodic Comment on above: No clinical hemolysi s Leukemias (18 sources) Chronic lymphoid leukemia, disease; Translations: [Chronic lymphocytic leukemia of B-cell type not having achieved remission] Onset: 01-19-2025 Chronic Comment on above: Lymphocytosis.Asympt omatic. No indication for therapy. Mycoses (10 sources) Candidiasis; Translations: [Other sites of candidiasis] 10-13-2019 Episodic Non-Hodgkin`s lymphoma (20 sources) Waldenstrom macroglobulinemia; Translations: [Waldenstrom macroglobulinemia] Onset: 01-19-2025 Chronic Comment on above: M-spike is stable on 01/14/2024 Other aftercare (1 source) Encounter for adjustment and management of vascular access device; Translations: [Encounter for adjustment and management of vascular access device] Onset: 01-19-2025 Episodic Other bone disease and musculoskeletal deformities (16 sources) Osteopenia; Translations: [Other specified disorders of bone density and structure, unspecified site] 04-06-2020 Episodic Other bone disease and musculoskeletal deformities (12 sources) Other specified disorders of bone density and structure, unspecified site; Translations: [Disorder of bone and cartilage, unspecified] Episodic Other bone disease and musculoskeletal deformities (1 source) Other specified disorders of bone density and structure, other site; Translations: [Other specified disorders of bone density and structure, other site] Onset: 01-19-2025 Episodic Other lower respiratory disease (1 source) Pleurodynia; Translations: [Pleurodynia] Onset: 01-21-2025 Episodic Other screening for suspected conditions (not mental disorders or infectious disease) (10 sources) Endometrium thickened; Translations: [Abnormal findings on diagnostic imaging of other specified body structures] 10-13-2019 Chronic Other screening for suspected conditions (not mental disorders or infectious disease) (1 source) Encounter for screening mammogram for malignant neoplasm of breast; Translations: [Encounter for screening mammogram for malignant neoplasm of breast] Onset: 11-20-2024 Episodic Pneumonia (except that caused by tuberculosis or sexually transmitted disease) (9 sources) Pneumonia; Translations: [Pneumonia, unspecified organism] 02-01-2022 Episodic Residual codes; unclassified (10 sources) Tobacco user; Translations: [Tobacco use] 10-28-2019 Episodic Residual codes; unclassified (2 sources) Estrogen receptor positive status [ER+]; Translations: [Estrogen receptor positive status [ER+]] Onset: 01-19-2025 Episodic Results Test Name Value Interpretation Reference Range Facility Ribs Unil 2V No CXRon 2024 Ribs Unil 2V No CXR [facility] [address] [place] [address] Ribs Unil 2V No CXR MR#: [id number] Acct: [id number] Name: SHRUTHI MITCHELL Rep #: [id number] : 1950 F 74 From: Betsy dash MD PCP: Dr. Link Carroll MD Status: REG CLI Study: Ribs Unil 2V No CXR Date of Exam: 01/21/25 Exam# [id number] Ordering Dr: Link Carroll MD PROCEDURE: RIBS UNIL 2V NO CXR 01/21/2025 REASON FOR EXAM: PAIN TECHNIQUE: Frontal and bilateral oblique views of the bilateral ribs. COMPARISON: 01/24/2022. FINDINGS: Metallic clips are noted in the left chest wall. The lungs are expanded. There is no demonstrated parenchymal abnormality. There is no demonstrated pleural abnormality. Normal heart and pericardium. Normal mediastinum and hector. Normal visualized pulmonary arteries. Normal visualized aortic arch and descending thoracic aorta. Normal visualized thoracic spine. Normal visualized ribs, clavicles, and shoulders. There is no demonstrated abnormality of the visualized soft tissue structures of the upper abdomen. RAD/Ribs Unil 2V No CXR IMPRESSION: No evidence for acute abnormality. No rib fracture is seen. Reading Location: [place] [address] CC: Dr. Link Carroll MD Substance Abuse Rn: Signed Normal [facility] Oncology Visit Reporton 01-10 Oncology Visit Report [facility] [address] [place] [address] OFFICE VISIT Date of Service: 01/19/25 1330 MR#: [id number] Acct: [id number] Name: SHRUTHI MITCHELL Rep #: [id number] : 1950 From: Jae Clarke MD Age/Sex: 74/F Location[facility] Status: Signed HPI Subjective Date of Service 01/19/25 Chief Complaint F/u for CLL and breast cancer. History of Present Illness 74-year-old female with #1-Bilateral breasts cancers: A past medical history notable for right breast cancer node positive over 20 years earlier treated with lumpectomy, chemotherapy, radiation therapy and a short (less than 1 year) course of tamoxifen.??? These records are not available. She was faithful with annual screening mammograms. October 08, 2019 screening mammogram: ??? Questionable new microcalcifications are noted in the inferior medial aspect of the left breast . October 12, 2019 left breast ultrasound: IMPRESSION: 6 mm x 6 mm x 6 mm slightly irregular hypoechoic solid nodule at the 2:00 position of the breast at 6 cm from the nipple.??? Mild posterior shadowing. A biopsy is recommended. October 16, 2019???Left breast, ultrasound-guided needle core biopsy: Invasive ductal carcinoma with the following characteristics: ? Maximal length??? 8 millimeters ? Nuclear grade??? 1-2/3 ANTIBODY / CLONE? RESULT P53??? (DO-7)? positive, 5% Ki-67??? (30-9)? positive, 10% CK8??? (96ozupK19) positive CK5-6??? (D5 1684) ? negative Calponin-1 (CM448R) ? negative P40??? (BC28) negative E-Cad??? (ECH-6) ? positive AYERS-2??? (SP21) ? positive MORPHOMETRIC ANALYSIS ? ER (clone 6F11) ? >95% NV (clone 16/1E2) ? >95% Her-2Neu (clone CB11) ? 1+ October 28, 2019 left breast partial mastectomy with sentinel lymph node biopsy: FROZEN SECTION DIAGNOSIS A.??? Axillary sentinel lymph nodes, biopsy: Two out of two lymph nodes negative for carcinoma. MICROSCOPIC DIAGNOSIS A.??? Axillary sentinel lymph nodes, biopsy: Two out of two lymph nodes, negative for metastatic carcinoma. See comment. B.??? 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 See cancer summary below. C.??? Additional tissue left breast: Fragments of mature adipose tissue, negative for carcinoma. BREAST CANCER SUMMARY Procedure - excision with wire-guided localization Specimen laterality??? left Invasive tumor: Tumor site??? not specified Tumor size??? 1 x 1 x 0.7 cm Histologic type??? invasive ductal carcinoma, not otherwise specified Histologic grade (Nicki grade): Glandular/tubular differentiation score - 2 Nuclear pleomorphism score - 2 Mitotic count score - 1 Overall grade??? grade 1 (score of 5) Tumor focality??? 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 Size (extent) of DCIS: Estimated size (extent) - The DCIS comprise about 25% of the total tumor volume. Number of blocks with DCIS??? 3 ? Architectural pattern??? comedo and solid ? Nuclear grade??? grade 2 (intermediate) ? Necrosis??? present, central (expansive ???comedo??? necrosis) Lobular carcinoma in situ??? not identified. Tumor extension: Skin??? skin is not present Nipple??? not applicable Skeletal muscle??? no skeletal muscle is present. Margin??? Invasive carcinoma and ductal carcinoma in situ are 0.4 cm away from the closest inferior margin. Regional lymph nodes: ? Total number of lymph nodes examined - 2 ? Total number of sentinel lymph nodes examined - 2 ? Number of lymph nodes with macrometastasis, micrometastasis and isolated tumor cells??? 0 Treatment effect??? no known presurgical therapy Lymphvascular invasion??? not identified Dermal lymphvascular invasion??? not applicable Additional Pathologic Findings??? - fibrocystic changes, adenosis and intraductal hyperplasia without atypia. - Hyalinized fibroadenoma with focal calcifications (1.1 x 0.5 cm, measured microscopically). Ancillary Studies:??? Previously performed on same tumor ([id number] / [id number]) ER:??? positive (>95%) NV:??? positive (>95%) Her2 samuel ([facility]):??? negative (1+) Microcalcifications??? present in ductal carcinoma in situ and non-neoplastic tissue. Clinical History - Please make reference to previous specimen ([id number]) left breast, ultrasound- guided needle core biopsy (more content not included)... Normal [facility] TARA + Protein Elect, Serumon 01-08-2025 Albumin [Mass/Vol] 2.9 g/dL Normal 2.9-4.4 [facility] Comment on above: Order Comment: N Performed By: #### L 501.6710, L504.2610, L3130.0010, L101.9900, L503.6550, L500.4050, L501.2300, L100.0100, L3100.3425, L501.5200, L503.6030 ####[facility] [address] [place], [address] Albumin/Globulin [Mass ratio] 0.8 {ratio} Normal 0.7-1.7 [facility] Comment on above: Order Comment: N Performed By: #### L 501.6710, L504.2610, L3130.0010, L101.9900, L503.6550, L500.4050, L501.2300, L100.0100, L3100.3425, L501.5200, L503.6030 ####[facility] [address] [place], [address] TVEUY-1-MOML 0.4 g/dL Normal 0.0-0.4 [facility] Comment on above: Order Comment: N Performed By: #### L 501.6710, L504.2610, L3130.0010, L101.9900, L503.6550, L500.4050, L501.2300, L100.0100, L3100.3425, L501.5200, L503.6030 ####[facility] [address] [place], [place], [phone] [id number]-[id number] 1.0 g/dL Normal 0.4-1.0 [facility] Comment on above: Order Comment: N Performed By: #### L 501.6710, L504.2610, L3130.0010, L101.9900, L503.6550, L500.4050, L501.2300, L100.0100, L3100.3425, L501.5200, L503.6030 ####[facility] [address] [place], [address] BETA GLOBULIN 0.8 g/dL Normal 0.7-1.3 [facility] Comment on above: Order Comment: N Performed By: #### L 501.6710, L504.2610, L3130.0010, L101.9900, L503.6550, L500.4050, L501.2300, L100.0100, L3100.3425, L501.5200, L503.6030 ####[facility] [address] [place], [address] GAMMA GLOBULIN 1.8 g/dL Normal 0.4-1.8 [facility] Comment on above: Order Comment: N Performed By: #### L 501.6710, L504.2610, L3130.0010, L101.9900, L503.6550, L500.4050, L501.2300, L100.0100, L3100.3425, L501.5200, L503.6030 ####[facility] [address] [place], [address] Globulin (S) [Mass/Vol] 4.0 g/dL Abnormal 2.2-3.9 [facility] Comment on above: Order Comment: N Performed By: #### L 501.6710, L504.2610, L3130.0010, L101.9900, L503.6550, L500.4050, L501.2300, L100.0100, L3100.3425, L501.5200, L503.6030 ####[facility] [address] [place], [address] TARA RESULT,S Comment Abnormal . [facility] Comment on above: Order Comment: N Result Comment: Immu nofixation shows IgM monoclonal protein with kappa light chain specificity. Performed By: #### L 501.6710, L504.2610, L3130.0010, L101.9900, L503.6550, L500.4050, L501.2300, L100.0100, L3100.3425, L501.5200, L503.6030 ####[facility] [address] [place], [place], [phone] IMMUNOGLOB A QN 66 mg/dL Normal 64-422 [facility] Comment on above: Order Comment: N Performed By: #### L 501.6710, L504.2610, L3130.0010, L101.9900, L503.6550, L500.4050, L501.2300, L100.0100, L3100.3425, L501.5200, L503.6030 ####[facility] [address] [place], [place], [phone] IMMUNOGLOB G QN 577 mg/dL Low 586-1602 [facility] Comment on above: Order Comment: N Performed By: #### L 501.6710, L504.2610, L3130.0010, L101.9900, L503.6550, L500.4050, L501.2300, L100.0100, L3100.3425, L501.5200, L503.6030 ####[facility] [address] [place], [place], [phone] IMMUNOGLOB M QN 2002 mg/dL High 26-217 [facility] Comment on above: Order Comment: N Result Comment: Resu lts confirmed on dilution. Performed By: #### L 501.6710, L504.2610, L3130.0010, L101.9900, L503.6550, L500.4050, L501.2300, L100.0100, L3100.3425, L501.5200, L503.6030 ####[facility] [address] [place], [place], [phone] M-Erik 1.4 g/dL Abnormal Not Observed [facility] Comment on above: Order Comment: N Performed By: #### L 501.6710, L504.2610, L3130.0010, L101.9900, L503.6550, L500.4050, L501.2300, L100.0100, L3100.3425, L501.5200, L503.6030 ####[facility] [address] [place], [place], [phone] NOTE: Comment Normal . [facility] Comment on above: Order Comment: N Result Comment: Prot ein electrophoresis scan will follow via computer, mail, or quarry manager delivery. Performed By: #### L 501.6710, L504.2610, L3130.0010, L101.9900, L503.6550, L500.4050, L501.2300, L100.0100, L3100.3425, L501.5200, L503.6030 ####[facility] [address] [place], [place], [phone] Protein [Mass/Vol] 6.9 g/dL Normal 6.0-8.5 [facility] Comment on above: Order Comment: N Performed By: #### L 501.6710, L504.2610, L3130.0010, L101.9900, L503.6550, L500.4050, L501.2300, L100.0100, L3100.3425, L501.5200, L503.6030 ####[facility] [address] [place], [address] [facility] Lambda Light Chainson 01-08-2025 FR KAPPA LT CHN 50.3 mg/L Abnormal 3.3-19.4 [facility] Comment on above: Performed By: #### L 501.6710, L504.2610, L3130.0010, L101.9900, L503.6550, L500.4050, L501.2300, L100.0100, L3100.3425, L501.5200, L503.6030 ####[facility] [address] [place], [place], [phone] FR LAMBDA LT CH 14.8 mg/L Normal 5.7-26.3 [facility] Comment on above: Performed By: #### L 501.6710, L504.2610, L3130.0010, L101.9900, L503.6550, L500.4050, L501.2300, L100.0100, L3100.3425, L501.5200, L503.6030 ####[facility] [address] [place], [place], [id number] KAPPA/LAMBDA % 3.40 Abnormal 0.26-1.65 [facility] Comment on above: Result Comment: Perf ormed at: [facility] [address] [id number] Bus Steward: William Bryant PhD, Phone: [phone] Performed By: #### L 501.6710, L504.2610, L3130.0010, L101.9900, L503.6550, L500.4050, L501.2300, L100.0100, L3100.3425, L501.5200, L503.6030 ####[facility] [address] [place], [place], [phone] Absolute lymphocyte countOrd ered By: Jae Clarke on 01-05-2025 Lymphocytes Auto (Unsp spec) [#/Vol] 149.59 10*3/uL High 0.83-4.51 [facility] Absolute neutrophil countOrd ered By: Jae Clarke on 01-05-2025 Neutrophils (Bld) [#/Vol] 6.5 10*3/uL 2.0-7.7 [facility] Albumin Elph [Mass/Vol]Order ed By: Jae Clarke on 01-05-2025 Albumin [Mass/Vol] 2.9 g/dL 2.9-4.4 [facility] Anion gap in Serum or Plasma Ordered By: Jae Clarke on 01-05-2025 Anion gap [Moles/Vol] 12 mmol/L 5-15 [facility] Automated lymphocyte count a s percentage of total leukocytesOrdered By: Jae Clarke on 01-05-2025 Lymphocytes/100 WBC Auto (Unsp spec) 93.1 % High 19-41 [facility] BUN/creatinine ratioOrdered By: Jae Clarke on 01-05-2025 Urea nitrogen/Creatinine [Mass ratio] 23.8 mg/mg High 10-20 [facility] Basophil percentageOrdered B y: Jae Clarke on 01-05-2025 Basophils/100 WBC (Bld) 0.1 % 0-1 [facility] Bilirubin, totalOrdered By: Jae Clarke on 01-05-2025 Bilirubin [Mass/Vol] 0.27 mg/dL 0.00-1.30 [facility] CBC W/Diff, Automatedon 12-11 ATYPICAL LYMPH 1+ Normal [facility] Comment on above: Performed By: #### L 501.6710, L504.2610, L3130.0010, L101.9900, L503.6550, L500.4050, L501.2300, L100.0100, L3100.3425, L501.5200, L503.6030 ####[facility] [address] [place], [address] PLT EST A Normal ADEQ [facility] Comment on above: Performed By: #### L 501.6710, L504.2610, L3130.0010, L101.9900, L503.6550, L500.4050, L501.2300, L100.0100, L3100.3425, L501.5200, L503.6030 ####[facility] [address] [place], [address] REACTIVE LYMPH 1+ Normal [facility] Comment on above: Performed By: #### L 501.6710, L504.2610, L3130.0010, L101.9900, L503.6550, L500.4050, L501.2300, L100.0100, L3100.3425, L501.5200, L503.6030 ####[facility] [address] [place], [address] WBC (Bld) [#/Vol] 160.7 10*3/uL Invalid Interpretation Code 4.4-11.0 [facility] Comment on above: Result Comment: CRIT ICAL VALUE CALLED TO Glenn FORD 01/05/25 Malcolm Boggs. RESULTS READ BACK BY SAME. Performed By: #### L 501.6710, L504.2610, L3130.0010, L101.9900, L503.6550, L500.4050, L501.2300, L100.0100, L3100.3425, L501.5200, L503.6030 ####[facility] [address] [place], [address] CRPon 01-05-2025 C-REACTIVE PROT 71.90 mg/L High 0.0-3.0 [facility] Comment on above: Performed By: #### L 501.6710, L504.2610, L3130.0010, L101.9900, L503.6550, L500.4050, L501.2300, L100.0100, L3100.3425, L501.5200, L503.6030 ####[facility] [address] [place], [address] Carbon dioxide, total [Moles /volume] in Central venous bloodOrdered By: Jae Clarke on 01-05-2025 CO2 [Moles/Vol] 24.0 mmol/L 21.0-32.0 [facility] Chloride assayOrdered By: Radha Clarke on 01-05-2025 Chloride [Moles/Vol] 93 mmol/L Low 98-108 [facility] Comprehensive Metabolic Prof ilon 01-05-2025 Albumin [Mass/Vol] 3.4 g/dL Normal 3.4-4.8 [facility] Comment on above: Performed By: #### L 501.6710, L504.2610, L3130.0010, L101.9900, L503.6550, L500.4050, L501.2300, L100.0100, L3100.3425, L501.5200, L503.6030 ####[facility] [address] [place], [place], [phone] Albumin/Globulin [Mass ratio] 0.8 {ratio} Low 0.9-2.4 [facility] Comment on above: Performed By: #### L 501.6710, L504.2610, L3130.0010, L101.9900, L503.6550, L500.4050, L501.2300, L100.0100, L3100.3425, L501.5200, L503.6030 ####[facility] [address] [place], [place], [phone] ALK PHOS 103 U/L Normal 35-104 [facility] Comment on above: Performed By: #### L 501.6710, L504.2610, L3130.0010, L101.9900, L503.6550, L500.4050, L501.2300, L100.0100, L3100.3425, L501.5200, L503.6030 ####[facility] [address] [place], [place], [phone] ALT [Catalytic activity/Vol] 9 U/L Normal <=34 [facility] Comment on above: Performed By: #### L 501.6710, L504.2610, L3130.0010, L101.9900, L503.6550, L500.4050, L501.2300, L100.0100, L3100.3425, L501.5200, L503.6030 ####[facility] [address] [place], [place], [phone] AST [Catalytic activity/Vol] 18 U/L Normal <=31 [facility] Comment on above: Performed By: #### L 501.6710, L504.2610, L3130.0010, L101.9900, L503.6550, L500.4050, L501.2300, L100.0100, L3100.3425, L501.5200, L503.6030 ####[facility] [address] [place], [place], [phone] Bilirubin [Mass/Vol] 0.27 mg/dL Normal 0.00-1.30 [facility] Comment on above: Performed By: #### L 501.6710, L504.2610, L3130.0010, L101.9900, L503.6550, L500.4050, L501.2300, L100.0100, L3100.3425, L501.5200, L503.6030 ####[facility] [address] [place], [address] BUN/CRE 23.8 RATIO High 10-20 [facility] Comment on above: Performed By: #### L 501.6710, L504.2610, L3130.0010, L101.9900, L503.6550, L500.4050, L501.2300, L100.0100, L3100.3425, L501.5200, L503.6030 ####[facility] [address] [place], [address] Calcium [Mass/Vol] 9.4 mg/dL Normal 7.6-11.0 [facility] Comment on above: Performed By: #### L 501.6710, L504.2610, L3130.0010, L101.9900, L503.6550, L500.4050, L501.2300, L100.0100, L3100.3425, L501.5200, L503.6030 ####[facility] [address] [place], [address] Chloride [Moles/Vol] 93 mmol/L Low 98-108 [facility] Comment on above: Performed By: #### L 501.6710, L504.2610, L3130.0010, L101.9900, L503.6550, L500.4050, L501.2300, L100.0100, L3100.3425, L501.5200, L503.6030 ####[facility] [address] [place], [address] CO2 [Moles/Vol] 24.0 mmol/L Normal 21.0-32.0 [facility] Comment on above: Performed By: #### L 501.6710, L504.2610, L3130.0010, L101.9900, L503.6550, L500.4050, L501.2300, L100.0100, L3100.3425, L501.5200, L503.6030 ####[facility] [address] [place], [place], [phone] Creatinine [Mass/Vol] 0.67 mg/dL Low 0.70-1.20 [facility] Comment on above: Performed By: #### L 501.6710, L504.2610, L3130.0010, L101.9900, L503.6550, L500.4050, L501.2300, L100.0100, L3100.3425, L501.5200, L503.6030 ####[facility] [address] [place], [address] ECRCL 59.51 ml/min Normal 50-250 [facility] Comment on above: Performed By: #### L 501.6710, L504.2610, L3130.0010, L101.9900, L503.6550, L500.4050, L501.2300, L100.0100, L3100.3425, L501.5200, L503.6030 ####[facility] [address] [place], [place], [phone] GAP 12 Normal 5-15 [facility] Comment on above: Performed By: #### L 501.6710, L504.2610, L3130.0010, L101.9900, L503.6550, L500.4050, L501.2300, L100.0100, L3100.3425, L501.5200, L503.6030 ####[facility] [address] [place], [place], [phone] GFR/1.73 sq M.predicted among non-blacks MDRD (S/P/Bld) [Vol rate/Area] 93 mL/min/{1.73_m2} Normal >60 [facility] Comment on above: Result Comment: mL/m in/1.73m2 CKD-EPI Creatinine Equation (2020) Performed By: #### L 501.6710, L504.2610, L3130.0010, L101.9900, L503.6550, L500.4050, L501.2300, L100.0100, L3100.3425, L501.5200, L503.6030 ####[facility] [address] [place], [address] Globulin (S) [Mass/Vol] 4.1 g/dL Normal 2.2-4.2 [facility] Comment on above: Performed By: #### L 501.6710, L504.2610, L3130.0010, L101.9900, L503.6550, L500.4050, L501.2300, L100.0100, L3100.3425, L501.5200, L503.6030 ####[facility] [address] [place], [place], [phone] Glucose [Mass/Vol] 162 mg/dL High 70-99 [facility] Comment on above: Performed By: #### L 501.6710, L504.2610, L3130.0010, L101.9900, L503.6550, L500.4050, L501.2300, L100.0100, L3100.3425, L501.5200, L503.6030 ####[facility] [address] [place], [place], [phone] Potassium [Moles/Vol] 4.5 mmol/L Normal 3.3-5.1 [facility] Comment on above: Performed By: #### L 501.6710, L504.2610, L3130.0010, L101.9900, L503.6550, L500.4050, L501.2300, L100.0100, L3100.3425, L501.5200, L503.6030 ####[facility] [address], [address] Sodium [Moles/Vol] 129 mmol/L Low 133-145 [facility] Comment on above: Performed By: #### L 501.6710, L504.2610, L3130.0010, L101.9900, L503.6550, L500.4050, L501.2300, L100.0100, L3100.3425, L501.5200, L503.6030 ####[facility] [address] [place], [address] T PROT 7.5 g/dL Normal 5.9-8.4 [facility] Comment on above: Performed By: #### L 501.6710, L504.2610, L3130.0010, L101.9900, L503.6550, L500.4050, L501.2300, L100.0100, L3100.3425, L501.5200, L503.6030 ####[facility] [address] [place], [address] Urea nitrogen [Mass/Vol] 16 mg/dL Normal 4-19 [facility] Comment on above: Performed By: #### L 501.6710, L504.2610, L3130.0010, L101.9900, L503.6550, L500.4050, L501.2300, L100.0100, L3100.3425, L501.5200, L503.6030 ####[facility] [address], [address] Eosinophil percentageOrdered By: Jae Clarke on 01-05-2025 Eosinophils/100 WBC (Bld) 0.1 % 0-5 [facility] Erythrocyte Sed Rateon 01-05 SED RATE 95 mm/hr High 0-30 [facility] Comment on above: Performed By: #### L 501.6710, L504.2610, L3130.0010, L101.9900, L503.6550, L500.4050, L501.2300, L100.0100, L3100.3425, L501.5200, L503.6030 ####[facility] [address] [place], [address] Erythrocyte distribution wid th ratioOrdered By: Jae Clarke on 01-05-2025 Erythrocyte distribution width (RBC) [Ratio] 14.7 % High 11.6-14.6 [facility] Erythrocyte distribution wid th standard deviationOrdered By: Jae Clarke on 01-05-2025 Erythrocyte distribution width (RBC) [Ratio] 47.9 fl High 35.1-43.9 [facility] Erythrocyte sedimentation ra teOrdered By: Jae Clarke on 01-05-2025 ESR (Bld) [Velocity] 95 mm/h High 0-30 [facility] Ferritinon 01-05-2025 Ferritin [Mass/Vol] 202 ng/mL Normal 22-378 [facility] Comment on above: Performed By: #### L 501.6710, L504.2610, L3130.0010, L101.9900, L503.6550, L500.4050, L501.2300, L100.0100, L3100.3425, L501.5200, L503.6030 ####[facility] [address] [place], [address] Glomerular filtration rate ( GFR) estimation/1.73 sq m using serum, plasma, or whole bOrdered By: Jae Clarke on 01-05-2025 GFR/1.73 sq M.predicted among non-blacks MDRD (S/P/Bld) [Vol rate/Area] 93 mL/min/{1.73_m2} >60 [facility] Comment on above: mL/min/1.73m2 CKD-EP I Creatinine Equation (2020) Hematocrit Auto (Bld) [Volum e fraction]Ordered By: Jae Clarke on 01-05-2025 Hematocrit (Bld) [Volume fraction] 33.7 % Low 37-47 [facility] Hemoglobin measurementOrdere d By: Jae Clarke on 01-05-2025 Hemoglobin (Bld) [Mass/Vol] 10.8 g/dL Low 12.0-15.0 [facility] Immature granulocytes/100 WB C Auto (Bld)Ordered By: Jae Clarke on 01-05-2025 Immature granulocytes/100 WBC (Bld) 0.300 % 0.0-0.9 [facility] Comment on above: IG% - Immature Granu locytes (promyelocytes, myelocytes and metamyelocytes) > 1% indicates that a LEFT SHIFT is Present. Interpretation of serum or p lasma protein pattern by immunofixation (narrative resultOrdered By: Jea Clarke on 01-05-2025 Protein Fractions Immunofixation Dominic [Interp] 1.4 g/dL High Not Observed [facility] Iron measurement (mass/mass) Ordered By: Jae Clarke on 01-05-2025 Iron (Unsp spec) [Mass/Mass] 28 ug/dL Low 50-170 [facility] Iron+Iron Binding Capacityon 01-05-2025 Iron [Mass/Vol] 28 ug/dL Low 50-170 [facility] Comment on above: Performed By: #### L 501.6710, L504.2610, L3130.0010, L101.9900, L503.6550, L500.4050, L501.2300, L100.0100, L3100.3425, L501.5200, L503.6030 ####[facility] [address] [place], [address] IRON SATURATION 12.0 Low 13-59 [facility] Comment on above: Performed By: #### L 501.6710, L504.2610, L3130.0010, L101.9900, L503.6550, L500.4050, L501.2300, L100.0100, L3100.3425, L501.5200, L503.6030 ####[facility] [address] [place], [address] TIBC 240 ug/dL Low 250-450 [facility] Comment on above: Performed By: #### L 501.6710, L504.2610, L3130.0010, L101.9900, L503.6550, L500.4050, L501.2300, L100.0100, L3100.3425, L501.5200, L503.6030 ####[facility] [address] [place], [place], [id number] UIBC 212 ug/dL Low 228-428 [facility] Comment on above: Performed By: #### L 501.6710, L504.2610, L3130.0010, L101.9900, L503.6550, L500.4050, L501.2300, L100.0100, L3100.3425, L501.5200, L503.6030 ####[facility] [address] [place], [place], [phone] LDHon 01-05-2025 LDH 112 U/L Normal 84-246 [facility] Comment on above: Order Comment: 1 Performed By: #### L 501.6710, L504.2610, L3130.0010, L101.9900, L503.6550, L500.4050, L501.2300, L100.0100, L3100.3425, L501.5200, L503.6030 ####[facility] [address] [place], [place], [phone] Laboratory - Chemistry and C hemistry - challengeOrdered By: Jae Clarke on 01-05-2025 AST [Catalytic activity/Vol] 18 U/L <32 [facility] Lactate dehydrogenase (LDH) measurementOrdered By: Jae Clarke on 01-05-2025 LDH [Catalytic activity/Vol] 112 U/L 84-246 [facility] MCV (mean corpuscular volume ) determinationOrdered By: Jae Clarke on 01-05-2025 MCV (RBC) [Entitic vol] 91.3 fL 81-99 [facility] Magnesiumon 01-05-2025 Magnesium [Mass/Vol] 1.9 mg/dL Normal 1.5-2.2 [facility] Comment on above: Performed By: #### L 501.6710, L504.2610, L3130.0010, L101.9900, L503.6550, L500.4050, L501.2300, L100.0100, L3100.3425, L501.5200, L503.6030 ####[facility] [address] [place], [address] Magnesium measurement (mass/ volume)Ordered By: Jae Clarke on 01-05-2025 Magnesium (Unsp spec) [Mass/Vol] 1.9 mg/dL 1.5-2.2 [facility] Mean corpuscular hemoglobin (MCH) determinationOrdered By: [facility] MCH (RBC) [Entitic mass] 29.3 pg 27.0-32.0 [facility] Mean corpuscular hemoglobin concentration (MCHC) determinationOrdered By: Jae Clarke on 01-05-2025 MCHC (RBC) [Mass/Vol] 32.0 g/dL 32-36 [facility] Mean platelet volume determi nationOrdered By: [facility] on 01-05-2025 Platelet mean volume (Bld) [Entitic vol] 10.4 fL 6.2-12.0 [facility] Monocyte percentageOrdered B y: Jae Clarke on 01-05-2025 Monocytes/100 WBC (Bld) 2.5 % 0-10 [facility] Neutrophil percentageOrdered By: Jae Clarke on 01-05-2025 Neutrophils/100 WBC (Bld) 3.9 % Low 47-70 [facility] No Panel InformationOrdered By: [facility] on 01-05-2025 Addendum Document Comment . [facility] Comment on above: Protein electrophore sis scan will follow via computer,mail, or quarry manager delivery. Unsaturated Iron Binding Capacity 212 ug/dL Low 228-428 [facility] Nucleated red blood cell per centageOrdered By: Jae Clarke on 01-05-2025 Nucleated RBC/100 WBC (Bld) [Ratio] 0 % 0-5 [facility] Phosphoruson 01-05-2025 Phosphate [Mass/Vol] 3.4 mg/dL Normal 2.7-4.5 [facility] Comment on above: Performed By: #### L 501.6710, L504.2610, L3130.0010, L101.9900, L503.6550, L500.4050, L501.2300, L100.0100, L3100.3425, L501.5200, L503.6030 ####[facility] [address] [place], [address] Platelet countOrdered By: Radha Clarke on 01-05-2025 Platelets (Bld) [#/Vol] 278 10*3/uL 150-450 [facility] Platelet estimateOrdered By: Jae Clarke on 01-05-2025 Platelets LM Ql (Bld) A ADEQ [facility] Potassium measurement (mass/ volume)Ordered By: Jae Clarke on 01-05-2025 Potassium (Unsp spec) [Mass/Vol] 4.5 mmol/L 3.3-5.1 [facility] RBC Auto (Bld) [#/Vol]Ordere d By: Jae Clarke on 01-05-2025 RBC (Bld) [#/Vol] 3.69 10*6/uL Low 4.2-5.4 [facility] Serum creatinine measurement (mass/volume)Ordered By: Jae Clarke on 01-05-2025 Creatinine [Mass/Vol] 0.67 mg/dL Low 0.70-1.20 [facility] Serum globulin measurement ( mass/volume)Ordered By: Jae Clarke on 01-05-2025 Globulin (S) [Mass/Vol] 4.0 g/dL High 2.2-3.9 [facility] Serum glucose measurement (m ass/volume)Ordered By: Jae Clarke on 01-05-2025 Glucose [Mass/Vol] 162 mg/dL High 70-99 [facility] Serum immunoglobulin kappa l ight chains/immunoglobulin lambda light chains mass ratioOrdered By: Jae Clarke on 01-05-2025 Immunoglobulin light chains.kappa/Immunoglob ulin light chains.lambda (S) [Mass ratio] 3.40 High 0.26-1.65 [facility] Comment on above: Performed at: [address] [id number] Director: William Bryant PhD, Phone: [phone] Serum or plasma C reactive p rotein measurement (mass/volume)Ordered By: Jae Clarke on 01-05-2025 CRP [Mass/Vol] 71.90 mg/L High 0.0-3.0 [facility] Serum or plasma IgA measurem ent (mass/volume)Ordered By: Jae Clarke on 01-05-2025 IgA [Mass/Vol] 66 mg/dL 64-422 [facility] Serum or plasma IgG measurem ent (mass/volume)Ordered By: Jae Clarke on 01-05-2025 IgG [Mass/Vol] 577 mg/dL Low 586-1602 [facility] Serum or plasma alanine jiménez otransferase (ALT) measurementOrdered By: Jae Clarke on 01-05-2025 ALT [Catalytic activity/Vol] 9 U/L <35 [facility] Serum or plasma albumin raheel urement (mass/volume)Ordered By: Jae Clarke on 01-05-2025 Albumin [Mass/Vol] 3.4 g/dL 3.4-4.8 [facility] Serum or plasma albumin/glob ulin mass ratioOrdered By: Jae Clarke on 01-05-2025 Albumin/Globulin [Mass ratio] 0.8 {ratio} Low 0.9-2.4 [facility] Serum or plasma alkaline latoya sphatase measurementOrdered By: Jae Clarke on 01-05-2025 ALP [Catalytic activity/Vol] 103 U/L 35-104 [facility] Serum or plasma alpha 1 glob ulin measurement by electrophoresis (mass/volume)Ordered By: Jae Clarke on 01-05-2025 Alpha 1 globulin Elph [Mass/Vol] 0.4 g/dL 0.0-0.4 [facility] Alpha 1 globulin Elph [Mass/Vol] 1.0 g/dL 0.4-1.0 [facility] Serum or plasma beta globuli n measurement by electrophoresis (mass/volume)Ordered By: Jae Clarke on 01-05-2025 Beta globulin Elph [Mass/Vol] 0.8 g/dL 0.7-1.3 [facility] Serum or plasma calcium raheel urement (mass/volume)Ordered By: Jae Clarke on 01-05-2025 Calcium [Mass/Vol] 9.4 mg/dL 7.6-11.0 [facility] Serum or plasma ferritin chinmay surement (mass/volume)Ordered By: Jae Clarke on 01-05-2025 Ferritin [Mass/Vol] 202 ng/mL 22-378 [facility] Serum or plasma gamma globul in measurement by electrophoresis (mass/volume)Ordered By: Jae Clarke on 01-05-2025 Gamma globulin Elph [Mass/Vol] 1.8 g/dL 0.4-1.8 [facility] Serum or plasma immunoelectr ophoresis interpretation (nominal result)Ordered By: Jae Clarke on 01-05-2025 Interpretation IEP [Interp] Comment High . [facility] Comment on above: Immunofixation shows IgM monoclonal protein with kappalight chain specificity. Serum or plasma immunoglobul in kappa light chains measurement (mass/volume)Ordered By: Jae Clarke on 01-05-2025 Immunoglobulin light chains.kappa [Mass/Vol] 50.3 mg/L High 3.3-19.4 [facility] Serum or plasma iron saturat ion measurement (mass fraction)Ordered By: Jae Clarke on 01-05-2025 Iron saturation [Mass fraction] 12.0 % Low 13-59 [facility] Serum or plasma protein raheel urement (mass/volume)Ordered By: Jae Clarke on 01-05-2025 Protein [Mass/Vol] 6.9 g/dL 6.0-8.5 [facility] Serum or plasma urea nitroge n measurement (mass/volume)Ordered By: Jae Clarke on 01-05-2025 Urea nitrogen [Mass/Vol] 16 mg/dL 4-19 [facility] Sodium levelOrdered By: Mitchell Clarke on 01-05-2025 Sodium [Moles/Vol] 129 mmol/L Low 133-145 [facility] Total proteinOrdered By: Pasha Clarke on 01-05-2025 Protein [Mass/Vol] 7.5 g/dL 5.9-8.4 [facility] White blood cell (WBC) count Ordered By: Jae Clarke on 01-05-2025 WBC (Bld) [#/Vol] 160.7 10*3/uL High 4.4-11.0 [facility] Comment on above: CRITICAL VALUE GEOVANNY CARMONA Glenn RENKWMFPF46/27/25 1431 Belinda Boggs.RESULTS READ BACK BY SAME. Radiation Oncology Visiton 0 12-22-2024 Radiation Oncology Visit [facility] [address] [place] [address] OFFICE VISIT Date of Service: 12/22/24 1407 MR#: [id number] Acct: [id number] Name: SHRUTHI MITCHELL Rep #: [id number] : 1950 From: Mil Hampton DO Age/Sex: 74/F Location: [facility] – [place] Status: Signed Intake Vital Signs 04/21/24 14:38 07/21/24 13:37 12/22/24 14:10 Height 5 ft 5 ft 5 ft Weight: 150 lb 3 oz BMI 29.3 BP 132/78 H Blood Pressure Location Rt brachial Position Sitting Respiration 16 Pulse 88 Pulse Source Monitor Temp 97.0 F L Temperature Source Temporal Artery Pulse Oximetry (%) 100 Oxygen Delivery Method room air Intake Visit Reasons: 6 MONTH BREAST, REVIEW MAMMO Is patient in pain?: No Allergies No Known Allergies Allergy (Verified 12/22/24 14:10) Medications ???Medication ???Instructions ???Recorded ???Confirmed ???Type dupilumab [Dupixent Syringe] 2 ml subcut UD 10/13/19 12/22/24 H istory melatonin 10 mg sublingual tablet 10 mg PO QHS sleep 10/27/1912/22 History calcium 500 mg-vitamin D3 1,000 1 ea PO DAILY 10/13/20 12/22/24 Hi story unit-vitamin K 40 mcg chewable tablet potassium chloride 20 mEq 40 meq (2 x 20 mEq) PO DAILY 5 12/22/24 Rx tablet,extended release days #10 tabs lisinopril 10 1 tab PO DAILY 09/18/22 12/22/24 [facility] mg-hydrochlorothiazide 12.5 mg tablet mecobalamin (vitamin B12) 2,500 2,500 mcg PO DAILY 09/18/22 History mcg chewable tablet anastrozole 1 mg tablet 1 mg PO DAILY #90 TABLETS 01/07/24 12/22/24 Rx Have you fallen in the past year?: No PFSH PFSH Medical History Pneumonia CLL (chronic lymphocytic leukemia) 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 Breast cancer Gout Candidiasis of breast Hypertension Tobacco abuse Acute appendicitis with generalized peritonitis Thickened endometrium Home Medications ???Medication ???Instructions ???Recorded ???Last Taken ???Type dupilumab [Dupixent Syringe] 2 ml subcut UD 10/13/19 09/29/19 [facility] melatonin 10 mg sublingual tablet 10 mg PO QHS sleep 10/27/19 Unkno wn History calcium 500 mg-vitamin D3 1,000 1 ea PO DAILY 10/13/20 Unknown His tory unit-vitamin K 40 mcg chewable tablet potassium chloride 20 mEq 40 meq (2 x 20 mEq) PO DAILY 5 Unknown Rx tablet,extended release days #10 tabs lisinopril 10 1 tab PO DAILY 09/18/22 Unknown Hi story mg-hydrochlorothiazide 12.5 mg tablet mecobalamin (vitamin B12) 2,500 2,500 mcg PO DAILY 09/18/22 Unknow n History mcg chewable tablet anastrozole 1 mg tablet 1 mg PO DAILY #90 TABLETS 01/07/24 Unknown Rx Allergy/AdvReac Type Severity Reaction Status Date / Time No Known Allergies Allergy Verified 12/22/24 14:10 Family History Mother Diabetes Breast cancer Hypertension Daughter Asthma Pulmonary hypertension Surgical History History of lumpectomy of left breast ( 10/2019) History of left breast biopsy ( 10/2019) Hx of appendectomy Social History Smoking Status: Former smoker alcohol intake: never substance use type: does not use caffeine: Yes what type of physical activity do you participate in: walking frequency: 5-6 times per week shelby/samaritan: Uatsdin seatbelt use: always do you feel safe at home: Yes Diagnosis: Shruthi Mitchell is a 74 year-old female with history significant for right breast cancer (1995) treated with lumpectomy and adjuvant radiation therapy who has been diagnosed with pathologic stage IA, prognostic pathologic stage IA (pT1b pN0 (sn) Mx) grade 1 invasive ductal carcinoma (ER >95%, NV >95%, Her2 1+ IHC) of the left breast s/p screening mammography (10/08/2019), diagnostic mammogram and ultrasound (10/12/2019), ultrasound-guided core biopsy (10/16/2019), lumpectomy and sentinel lymph node biopsy (10/28/2019), and evaluation by medical oncology found to have a Oncotype DX score of 18 and planning to proceed with hormone therapy alone. From 01/07/2020 - 01/13/2020 she received left accelerated partial breast irradiation consisting of 3850 cGy in 10 fractions. History of Present Illness: 1995: Patient had right breast lumpectomy followed by chemotherapy and radiation therapy. From 11/27/95 - 01/09/96: Received whole breast radiation to the right breast consisting of 5000 cGy in 25 fractions over 35 days using lateral tangent reynolds followed by a scar boost consisting of 1000 cGy in 5 fractions. 10/08/2019: Bilateral screening mammography was performed which demonstrated some new microcalcifications seen in the left breast approximately 5 cm posterior to th (more content not included)... Normal [facility] Breast imaging reportOrdered By: Xuan Samson on 11-16-2024 Study report [facility] Imaging Services [address] [place], [place] [id number] SCRN MAMM (CAD)W/GOLDEN BILAT MR#: [id number] Acct: [id number] Name: SHRUTHI MITCHELL Rep #: [id number] : 1950 F 74 From: Arley Samson DO PCP: Dr. Link Carroll MD Status: CAYDEN OROURKE Study:SCRN MAMM (CAD)W/GOLDEN BILAT Date of Exa m: 11/16/24 Exam# [id number] Ordering Dr: Mil Hampton DO EXAM: SCRN MAMM (CAD)W/GOLDEN BILAT DATE: 11/16/2024 CLINICAL HISTORY: F, Age 74 y/o , TREATED BREAST CANCER Personal history of breast cancer. She has had prior bilateral lumpectomies with radiation therapy and chemotherapy. Her mother was also diagnosed with breast cancer. BREAST CANCER RISK ASSESSMENT: Has not been calculated. TECHNIQUE: Bilateral screening digital breast tomosynthesis with 2D and 3D images. Computeraided detection. COMPARISON: Prior exam(s) dated 11/14/2023 and 11/12/2022. FINDINGS: TISSUE DENSITY: The breast tissue is composed of scattered area of fibroglandular density. Bilateral Breast Mammographic Findings: Architectural distortion and dystrophic type calcifications are seen in the inferior medial aspect of the right breast and appears stable. Benign vascular calcifications, secretory type calcifications and round calcifications are seen in the right breast. A stable 6 mm well-circumscribed isodense mass in the superior outer, far posterior aspect of the right breast is noted. Radiopaque clips are seen in the axillary region. A benign-appearing stable lymph node is seen. No suspicious masses or suspicious calcifications are seen in the right breast. Architectural distortion, increased density and surgical clips are seen in the superior outer aspect of the left breast at the post lumpectomy site. This area is stable. Surgical clips are seen in the axillary region. Benign vascular calcifications are seen in the breasts. The left breast skin is slightly thickened and there is slight increased density diffusely throughout the left breast compatible with postsurgical and radiation changes. This is a stable finding. There is no mammographic abnormality seen to suggest new or recurrent malignancy. BI/SCRN MAMM (CAD)W/GOLDEN BILAT IMPRESSION: Right Breast: BIRADS 2 BENIGN FINDING. Left Breast: BIRADS 2 BENIGN FINDING. OVERALL FINAL ASSESSMENT: BIRADS 2 BENIGN FINDING RECOMMENDATION: Routine annual follow-up in 1 Year A letter with findings and recommendations will be mailed to the patient. Reading Location: [id number] CC: Dr. Link Carroll MD; Dr. Mil Hampton DO ~ Substance Abuse Rn: Signed [facility] SCRN MAMM (CAD)W/GOLDEN BILATo n 11-16-2024 SCRN MAMM (CAD)W/GOLDEN BILAT [facility] Imaging Services [address] [place] [address] SCRN MAMM (CAD)W/GOLDEN BILAT MR#: [id number] Acct: [id number] Name: SHRUTHI MITCHELL Rep #: [id number] : 1950 F 74 From: Xuan Sweeney PCP: Dr. Link Carroll MD Status: REG CLI Study: SCRN MAMM (CAD)W/GOLDEN BILAT Date of Exam: 03/05 Exam# [id number] Ordering Dr: Mil Hampton DO EXAM: SCRN MAMM (CAD)W/GOLDNE BILAT DATE: 11/16/2024 CLINICAL HISTORY: F, Age 74 y/o , TREATED BREAST CANCER Personal history of breast cancer. She has had prior bilateral lumpectomies with radiation therapy and chemotherapy. Her mother was also diagnosed with breast cancer. BREAST CANCER RISK ASSESSMENT: Has not been calculated. TECHNIQUE: Bilateral screening digital breast tomosynthesis with 2D and 3D images. Computer aided detection. COMPARISON: Prior exam(s) dated 11/14/2023 and 11/12/2022. FINDINGS: TISSUE DENSITY: The breast tissue is composed of scattered area of fibroglandular density. Bilateral Breast Mammographic Findings: Architectural distortion and dystrophic type calcifications are seen in the inferior medial aspect of the right breast and appears stable. Benign vascular calcifications, secretory type calcifications and round calcifications are seen in the right breast. A stable 6 mm well-circumscribed isodense mass in the superior outer, far posterior aspect of the right breast is noted. Radiopaque clips are seen in the axillary region. A benign-appearing stable lymph node is seen. No suspicious masses or suspicious calcifications are seen in the right breast. Architectural distortion, increased density and surgical clips are seen in the superior outer aspect of the left breast at the post lumpectomy site. This area is stable. Surgical clips are seen in the axillary region. Benign vascular calcifications are seen in the breasts. The left breast skin is slightly thickened and there is slight increased density diffusely throughout the left breast compatible with postsurgical and radiation changes. This is a stable finding. There is no mammographic abnormality seen to suggest new or recurrent malignancy. BI/SCRN MAMM (CAD)W/GOLDEN BILAT IMPRESSION: Right Breast: BIRADS 2 BENIGN FINDING. Left Breast: BIRADS 2 BENIGN FINDING. OVERALL FINAL ASSESSMENT: BIRADS 2 BENIGN FINDING RECOMMENDATION: Routine annual follow-up in 1 Year A letter with findings and recommendations will be mailed to the patient. Reading Location: [id number] CC: Dr. Link Carroll MD; Dr. Mil Hamptno DO Substance Abuse Rn: Signed Normal [facility] Anion gap in Serum or Plasma Ordered By: Link Carroll on 10-26-2024 Anion gap [Moles/Vol] 12 mmol/L - [facility] BUN/creatinine ratioOrdered By: Link Carroll on 10-26-2024 Urea nitrogen/Creatinine [Mass ratio] 15.2 mg/mg - [facility] Bilirubin, totalOrdered By: Link Carroll on 10-26-2024 Bilirubin [Mass/Vol] 0.45 mg/dL 0.00-1.30 [facility] Calculated very low density lipoprotein (VLDL) cholesterol measurementOrdered By: Link Carroll on 10-26-2024 Calculated very low density lipoprotein (VLDL) cholesterol measurement 23 mg/dL - [facility] VLDL Cholesterol 23 mg/dL [facility] Carbon dioxide, total [Moles /volume] in Central venous bloodOrdered By: Link Carroll on 10-26-2024 CO2 [Moles/Vol] 26.9 mmol/L 21.0-32.0 [facility] Chloride assayOrdered By: Ludivina Carroll on 10-26-2024 Chloride [Moles/Vol] 101 mmol/L 98-108 [facility] Comprehensive Metabolic Prof ilon 10-26-2024 Albumin [Mass/Vol] 3.5 g/dL Normal 3.4-4.8 [facility] Comment on above: Performed By: #### L 500.4100, L500.4050 ####[facility] [address] [place], [place], [id number] Albumin/Globulin [Mass ratio] 0.8 {ratio} Low 0.9-2.4 [facility] Comment on above: Performed By: #### L 500.4100, L500.4050 ####[facility] [address] [place], [address] ALK PHOS 101 U/L Normal 35-104 [facility] Comment on above: Performed By: #### L 500.4100, L500.4050 ####[facility] [address] [place], [address] ALT [Catalytic activity/Vol] 8 U/L Normal <=34 [facility] Comment on above: Performed By: #### L 500.4100, L500.4050 ####[facility] [address] [place], [address] AST [Catalytic activity/Vol] 14 U/L Normal <=31 [facility] Comment on above: Performed By: #### L 500.4100, L500.4050 ####[facility] [address] [place], [address] Bilirubin [Mass/Vol] 0.45 mg/dL Normal 0.00-1.30 [facility] Comment on above: Performed By: #### L 500.4100, L500.4050 ####[facility] [address] [place], [address] BUN/CRE 15.2 RATIO Normal 10-20 [facility] Comment on above: Performed By: #### L 500.4100, L500.4050 ####[facility] [address] [place], [address] Calcium [Mass/Vol] 10.5 mg/dL Normal 7.6-11.0 [facility] Comment on above: Performed By: #### L 500.4100, L500.4050 ####[facility] [address] [place], [address] Chloride [Moles/Vol] 101 mmol/L Normal 98-108 [facility] Comment on above: Performed By: #### L 500.4100, L500.4050 ####[facility] [address] [place], [address] CO2 [Moles/Vol] 26.9 mmol/L Normal 21.0-32.0 [facility] Comment on above: Performed By: #### L 500.4100, L500.4050 ####[facility] [address] [place], [address] Creatinine [Mass/Vol] 0.83 mg/dL Normal 0.70-1.20 [facility] Comment on above: Performed By: #### L 500.4100, L500.4050 ####[facility] [address] [place], [address] GAP 12 Normal 5-15 [facility] Comment on above: Performed By: #### L 500.4100, L500.4050 ####[facility] [address] [place], [address] GFR/1.73 sq M.predicted among non-blacks MDRD (S/P/Bld) [Vol rate/Area] 75 mL/min/{1.73_m2} Normal >60 [facility] Comment on above: Result Comment: mL/m in/1.73m2 CKD-EPI Creatinine Equation (2020) Performed By: #### L 500.4100, L500.4050 ####[facility] [address] [place], [address] Globulin (S) [Mass/Vol] 4.3 g/dL High 2.2-4.2 [facility] Comment on above: Performed By: #### L 500.4100, L500.4050 ####[facility] [address] [place], [address] Glucose [Mass/Vol] 124 mg/dL High 70-99 [facility] Comment on above: Performed By: #### L 500.4100, L500.4050 ####[facility] [address] [place], [address] Potassium [Moles/Vol] 4.9 mmol/L Normal 3.3-5.1 [facility] Comment on above: Performed By: #### L 500.4100, L500.4050 ####[facility] [address] [place], [address] Sodium [Moles/Vol] 139 mmol/L Normal 133-145 [facility] Comment on above: Performed By: #### L 500.4100, L500.4050 ####[facility] [address] [place], [address] T PROT 7.8 g/dL Normal 5.9-8.4 [facility] Comment on above: Performed By: #### L 500.4100, L500.4050 ####[facility] [address] [place], [address] Urea nitrogen [Mass/Vol] 13 mg/dL Normal 4-19 [facility] Comment on above: Performed By: #### L 500.4100, L500.4050 ####[facility] [address] [place], [address] GFR/1.73 sq M.predicted chelita g non-blacks MDRD (S/P/Bld) [Vol rate/Area]Ordered By: Link Carroll on 10-26-2024 Estimated GFR (MDRD) Non-Af Amer [address] [facility] Comment on above: mL/min/1.73m2 CKD-EP I Creatinine Equation (2020) Glomerular filtration rate ( GFR) estimation/1.73 sq m using serum, plasma, or whole bOrdered By: Link Carroll on 10-26-2024 GFR/1.73 sq M.predicted among non-blacks MDRD (S/P/Bld) [Vol rate/Area] 75 mL/min/{1.73_m2} >60 [facility] Comment on above: mL/min/1.73m2 CKD-EP I Creatinine Equation (2020) LDL calc ser/plasOrdered By: Link Carroll on 10-26-2024 Cholesterol in LDL [Mass/Vol] 46 mg/dL [facility] Comment on above: Zxzafephpr=012-105 m g/dL & Higher Bgbf=008 mg/dL or greater LDL Cholesterol, Calculated 46 mg/dL [facility] Comment on above: Wfwvfhgntn=579-566 m g/dL & Higher Faeu=543 mg/dL or greater Laboratory - Chemistry and C hemistry - challengeOrdered By: Link Carroll on 10-26-2024 AST [Catalytic activity/Vol] 14 U/L <32 [facility] Lipid Profileon 10-26-2024 CHOL:HDL 2.[address] [facility] Comment on above: Performed By: #### L 500.4100, L500.4050 ####[facility] [address] [place], [place], [phone] Cholesterol [Mass/Vol] 127 mg/dL Normal <=200 [facility] Comment on above: Result Comment: Chol esterol level, Desirable <200 mg/dL Borderline high cholesterol 200-239 mg/dL High cholesterol >=240 mg/dL Recommendations of the NCEP Adult Treatment Panel for the following risk-cutoff thresholds for the [place] population. Performed By: #### L 500.4100, L500.4050 ####[facility] [address] [place], [place], [address] Cholesterol in HDL [Mass/Vol] 58 mg/dL Normal [facility] Comment on above: Result Comment: Carissa onal Cholesterol Education Program (NCEP) guidelines: <40 mg/dL: Low HDL-cholesterol (major risk factor for CHD) >= 60 mg/dL: High HDL-cholesterol (negative risk factor for CHD) HDL-cholesterol is affected by a number of factors, e.g. smoking, exercise, hormones, sex and age. Performed By: #### L 500.4100, L500.4050 ####[facility] [address] [place], [place], [phone] Cholesterol in LDL [Mass/Vol] 46 mg/dL Normal [facility] Comment on above: Result Comment: Bord nbegsv=566-907 mg/dL Higher Wydi=146 mg/dL or greater Performed By: #### L 500.4100, L500.4050 ####[facility] [address] [place], [address] Cholesterol in VLDL [Mass/Vol] 23 mg/dL Normal 5-40 [facility] Comment on above: Performed By: #### L 500.4100, L500.4050 ####[facility] [address] [place], [address] Triglyceride [Mass/Vol] 114 mg/dL Normal [facility] Comment on above: Result Comment: The drugs N-Acetylcysteine and Metamizole may falsely depress this assay. Normal range: <150 mg/dL Borderline High: 150-199 mg/dL High: 200-499 mg/dL Very High: >500 mg/dL Performed By: #### L 500.4100, L500.4050 ####[facility] [address] [place], [address] Potassium (Unsp spec) [Mass/ Vol]Ordered By: Link Carroll on 10-26-2024 Potassium [Moles/Vol] 4.9 mmol/L 3.3-5.1 [facility] Potassium measurement (mass/ volume)Ordered By: Link Carroll on 10-26-2024 Potassium (Unsp spec) [Mass/Vol] 4.9 mmol/L 3.3-5.1 [facility] Screening total cholesterol/ high density lipoprotein (HDL) cholesterol ratioOrdered By: Link Carroll on 10-26-2024 Cholesterol.total/Heather sterol in HDL [Mass ratio] 2.19 {ratio} [facility] Serum creatinine measurement (mass/volume)Ordered By: Link Carroll on 10-26-2024 Creatinine [Mass/Vol] 0.83 mg/dL 0.70-1.20 [facility] Serum globulin measurementOr dered By: Link Carroll on 10-26-2024 Globulin (S) [Mass/Vol] 4.3 g/dL High 2.2-4.2 [facility] Serum glucose measurement (m ass/volume)Ordered By: Link Carroll on 10-26-2024 Glucose [Mass/Vol] 124 mg/dL High 70-99 [facility] Serum or plasma alanine jiménez otransferase (ALT) measurementOrdered By: Link Carroll on 10-26-2024 ALT [Catalytic activity/Vol] 8 U/L <35 [facility] Serum or plasma albumin raheel urement (mass/volume)Ordered By: Link Carroll on 10-26-2024 Albumin [Mass/Vol] 3.5 g/dL 3.4-4.8 [facility] Serum or plasma albumin/glob ulin mass ratioOrdered By: Link Carroll on 10-26-2024 Albumin/Globulin [Mass ratio] 0.8 {ratio} Low 0.9-2.4 [facility] Serum or plasma alkaline latoya sphatase measurementOrdered By: Link Carroll on 10-26-2024 ALP [Catalytic activity/Vol] 101 U/L 35-104 [facility] Serum or plasma calcium raheel urement (mass/volume)Ordered By: Link Carroll on 10-26-2024 Calcium [Mass/Vol] 10.5 mg/dL 7.6-11.0 [facility] Serum or plasma cholesterol in HDL measurement (mass/volume)Ordered By: Link Carroll on 10-26-2024 Cholesterol in HDL [Mass/Vol] 58 mg/dL >40 [facility] Comment on above: National Cholesterol Education Program (NCEP) guidelines:<40 mg/dL: Low HDL-cholesterol (major risk factor for CHD)>= 60 mg/dL: High HDL-cholesterol (negative risk factor for CHD)HDL-cholesterol is affected by a number of factors, e.g. smoking, exercise, hormones, sex and age. Serum or plasma cholesterol measurement (mass/volume)Ordered By: Link Carroll on 10-26-2024 Cholesterol [Mass/Vol] 127 mg/dL <201 [facility] Comment on above: Cholesterol level, D esirable <200 mg/dLBorderline high cholesterol 200-239 mg/dLHigh cholesterol >=240 mg/dLRecommendations of the NCEP Adult Treatment Panel for the following risk-cutoff thresholds for the [place] population. Serum or plasma urea nitroge n measurement (mass/volume)Ordered By: Link Carroll on 10-26-2024 Urea nitrogen [Mass/Vol] 13 mg/dL 4-19 [facility] Sodium levelOrdered By: Link Carroll on 10-26-2024 Sodium [Moles/Vol] 139 mmol/L 133-145 [facility] Total proteinOrdered By: Beatriz Carroll on 10-26-2024 Protein [Mass/Vol] 7.8 g/dL 5.9-8.4 [facility] Triglycerides measurementOrd ered By: Link Carroll on 10-26-2024 Triglyceride [Mass/Vol] 114 mg/dL <199 [facility] Comment on above: The drugs N-Acetylcy steine and Metamizole may falsely depress this assay. Normal range: <150 mg/dLBorderline High: 150-199 mg/dLHigh: 200-499 mg/dLVery High: >500 mg/dL Oncology Visit Reporton 07-12 Oncology Visit Report [facility] [place] [facility] [address] [place] [address] OFFICE VISIT Date of Service: 07/21/24 1334 MR#: [id number] Acct: [id number] Name: SHRUTHI MITCHELL Rep #: [id number] : 1950 From: Jae Clarke MD Age/Sex: 73/F Location[facility] Status: Signed HPI Subjective Date of Service 07/21/24 Chief Complaint F/u for CLL and breast cancer. History of Present Illness 73-year-old female with #1-Bilateral breasts cancers: A past medical history notable for right breast cancer node positive over 20 years earlier treated with lumpectomy, chemotherapy, radiation therapy and a short (less than 1 year) course of tamoxifen.??? These records are not available. She was faithful with annual screening mammograms. October 08, 2019 screening mammogram: ??? Questionable new microcalcifications are noted in the inferior medial aspect of the left breast . October 12, 2019 left breast ultrasound: IMPRESSION: 6 mm x 6 mm x 6 mm slightly irregular hypoechoic solid nodule at the 2:00 position of the breast at 6 cm from the nipple.??? Mild posterior shadowing. A biopsy is recommended. October 16, 2019???Left breast, ultrasound-guided needle core biopsy: Invasive ductal carcinoma with the following characteristics: ? Maximal length??? 8 millimeters ? Nuclear grade??? 1-2/3 ANTIBODY / CLONE? RESULT P53??? (DO-7)? positive, 5% Ki-67??? (30-9)? positive, 10% CK8??? ([id number]) positive CK5-6??? (D5 1684) ? negative Calponin-1 (GA790R) ? negative P40??? (BC28) negative E-Cad??? (ECH-6) ? positive AYERS-2??? (SP21) ? positive MORPHOMETRIC ANALYSIS ? ER (clone 6F11) ? >95% NV (clone 16/1E2) ? >95% Her-2Neu (clone CB11) ? 1+ October 28, 2019 left breast partial mastectomy with sentinel lymph node biopsy: FROZEN SECTION DIAGNOSIS A.??? Axillary sentinel lymph nodes, biopsy: Two out of two lymph nodes negative for carcinoma. MICROSCOPIC DIAGNOSIS A.??? Axillary sentinel lymph nodes, biopsy: Two out of two lymph nodes, negative for metastatic carcinoma. See comment. B.??? 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 See cancer summary below. C.??? Additional tissue left breast: Fragments of mature adipose tissue, negative for carcinoma. BREAST CANCER SUMMARY Procedure - excision with wire-guided localization Specimen laterality??? left Invasive tumor: Tumor site??? not specified Tumor size??? 1 x 1 x 0.7 cm Histologic type??? invasive ductal carcinoma, not otherwise specified Histologic grade (Stevinson grade): Glandular/tubular differentiation score - 2 Nuclear pleomorphism score - 2 Mitotic count score - 1 Overall grade??? grade 1 (score of 5) Tumor focality??? 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 Size (extent) of DCIS: Estimated size (extent) - The DCIS comprise about 25% of the total tumor volume. Number of blocks with DCIS??? 3 ? Architectural pattern??? comedo and solid ? Nuclear grade??? grade 2 (intermediate) ? Necrosis??? present, central (expansive ???comedo??? necrosis) Lobular carcinoma in situ??? not identified. Tumor extension: Skin??? skin is not present Nipple??? not applicable Skeletal muscle??? no skeletal muscle is present. Margin??? Invasive carcinoma and ductal carcinoma in situ are 0.4 cm away from the closest inferior margin. Regional lymph nodes: ? Total number of lymph nodes examined - 2 ? Total number of sentinel lymph nodes examined - 2 ? Number of lymph nodes with macrometastasis, micrometastasis and isolated tumor cells??? 0 Treatment effect??? no known presurgical therapy Lymphvascular invasion??? not identified Dermal lymphvascular invasion??? not applicable Additional Pathologic Findings??? - fibrocystic changes, adenosis and intraductal hyperplasia without atypia. - Hyalinized fibroadenoma with focal calcifications (1.1 x 0.5 cm, measured microscopically). Ancillary Studies:??? Previously performed on same tumor ([id number] / [id number]) ER:??? positive (>95%) NV:??? positive (>95%) Her2 samuel (IHC):??? negative (1+) Microcalcifications??? present in ductal carcinoma in situ and non-neoplastic tissue. Clinical History - Please make reference to previous specimen ([id number]) left breast, ultrasound- guided needle core biopsy (more content not included)... Normal [facility] CBC W/Diff, Automatedon PATH REV Reviewed Normal [facility] Comment on above: Order Comment: CRITI SHAW VALUE CALLED TO LEONOR SMITH 07/14/24 Gomez Tavarez. RESULTS READ BACK BY SAME. Result Comment: ABSO LUTE LYMPHOCYTOSIS CONSISTENT WITH CLL/SLL Normocytic anemia. Clinical correlation necessary. Ed Tomas D.O. 07/16/24 AMENDED REPORT 07/16/24 0908 PATH REV previously reported as: December Performed By: #### L 501.6710, L101.9900, L100.0100, L506.0250, L503.6550, L503.0105, L501.5200, L504.2610, L501.2300, L500.4050, L100.9950, L503.6030 #### [facility] [address] [place], [address] L501.5101on 07-16-2024 GGTP 19 IU/L Normal 0-60 [facility] Comment on above: Result Comment: Perf ormed at: - [facility] [address] [id number] Bus Steward: William Bryant PhD, Phone: [phone] Performed By: #### L 501.5101 ####[facility] [address] [place], [address] Absolute neutrophil countOrd ered By: Jae Clarke on 07-14-2024 Neutrophils (Bld) [#/Vol] 6.6 10*3/uL 2.0-7.7 [facility] Albumin to globulin ratioOrd ered By: Jae Clarke on 07-14-2024 Albumin/Globulin [Mass ratio] 0.5 {ratio} Low 0.9-2.4 [facility] [facility] Basophil percentageOrdered B y: Jae Clarke on 07-14-2024 Basophils/100 WBC (Bld) 0.1 % 0-1 [facility] Bilirubin, totalOrdered By: Jae Clarke on 07-14-2024 Bilirubin [Mass/Vol] 0.30 mg/dL 0.20-1.00 [facility] Comment on above: For patients on eltr ombopag therapy, use of Dimension Zap TBIL is not recommended. Blood urea nitrogen (BUN)/cr eatinine ratioOrdered By: Jae Clarke on 07-14-2024 Urea nitrogen/Creatinine [Mass ratio] 22.6 mg/mg High 10-20 [facility] C-reactive protein measureme nt by high sensitivity methodOrdered By: Jae Clarke on 07-14-2024 C-Reactive Protein Extended Range 79.90 mg/L High 0.0-3.0 [facility] Comment on above: C-Reactive Protein ( CRP) provides useful information for thediagnosis, therapy and monitoring of inflammatory processesand associated diseases. For the evaluation of Relative Riskfor Cardiovascular Disease, a High Sensitivity CRP (HSCRP)should be ordered. CRPon 07-14-2024 C-REACTIVE PROT 79.90 mg/L High 0.0-3.0 [facility] Comment on above: Order Comment: UNKNO WN1N Result Comment: C-Re active Protein (CRP) provides useful information for the diagnosis, therapy and monitoring of inflammatory processes and associated diseases. For the evaluation of Relative Risk for Cardiovascular Disease, a High Sensitivity CRP (HSCRP) should be ordered. Performed By: #### L 501.6710, L101.9900, L100.0100, L506.0250, L503.6550, L503.0105, L501.5200, L504.2610, L501.2300, L500.4050, L100.9950, L503.6030 ####[facility] [address] [place], [place], [phone] Carbon dioxide measurementOr dered By: Jae Clarke on 07-14-2024 CO2 [Moles/Vol] 28.0 mmol/L 21.0-32.0 [facility] Chloride measurementOrdered By: Jae Clarke on 07-14-2024 Chloride [Moles/Vol] 99 mmol/L 98-107 [facility] Comprehensive Metabolic Prof ilon 07-14-2024 Albumin [Mass/Vol] 2.7 g/dL Low 3.2-5.0 [facility] Comment on above: Order Comment: UNKNO WN1N Performed By: #### L 501.6710, L101.9900, L100.0100, L506.0250, L503.6550, L503.0105, L501.5200, L504.2610, L501.2300, L500.4050, L100.9950, L503.6030 ####[facility] [address] [place], [place], [phone] Albumin/Globulin [Mass ratio] 0.5 {ratio} Low 0.9-2.4 [facility] Comment on above: Order Comment: UNKNO WN1N Performed By: #### L 501.6710, L101.9900, L100.0100, L506.0250, L503.6550, L503.0105, L501.5200, L504.2610, L501.2300, L500.4050, L100.9950, L503.6030 ####[facility] [address] [place], [address] ALK P 99 U/L Normal 45-117 [facility] Comment on above: Order Comment: UNKNO WN1N Performed By: #### L 501.6710, L101.9900, L100.0100, L506.0250, L503.6550, L503.0105, L501.5200, L504.2610, L501.2300, L500.4050, L100.9950, L503.6030 ####[facility] [address] [place], [place], [phone] ALT [Catalytic activity/Vol] 18 U/L Normal 13-56 [facility] Comment on above: Order Comment: UNKNO WN1N Performed By: #### L 501.6710, L101.9900, L100.0100, L506.0250, L503.6550, L503.0105, L501.5200, L504.2610, L501.2300, L500.4050, L100.9950, L503.6030 ####[facility] [address] [facility] [address] [place], [place], [phone] AST [Catalytic activity/Vol] 14 U/L Low 15-37 [facility] Comment on above: Order Comment: UNKNO WN1N Performed By: #### L 501.6710, L101.9900, L100.0100, L506.0250, L503.6550, L503.0105, L501.5200, L504.2610, L501.2300, L500.4050, L100.9950, L503.6030 ####[facility] [address] [facility] [address] [place], [place], [phone] Bilirubin [Mass/Vol] 0.30 mg/dL Normal 0.20-1.00 [facility] Comment on above: Order Comment: UNKNO WN1N Result Comment: For patients on eltrombopag therapy, use of Dimension Zap TBIL is not recommended. Performed By: #### L 501.6710, L101.9900, L100.0100, L506.0250, L503.6550, L503.0105, L501.5200, L504.2610, L501.2300, L500.4050, L100.9950, L503.6030 ####[facility] [address] [place], [address] BUN/CRE 22.6 RATIO High 10-20 [facility] Comment on above: Order Comment: UNKNO WN1N Performed By: #### L 501.6710, L101.9900, L100.0100, L506.0250, L503.6550, L503.0105, L501.5200, L504.2610, L501.2300, L500.4050, L100.9950, L503.6030 ####[facility] [address] [place], [address] CA,Total 9.5 mg/dL Normal 8.5-10.1 [facility] Comment on above: Order Comment: UNKNO WN1N Performed By: #### L 501.6710, L101.9900, L100.0100, L506.0250, L503.6550, L503.0105, L501.5200, L504.2610, L501.2300, L500.4050, L100.9950, L503.6030 ####[facility] [address] [place], [address] Chloride [Moles/Vol] 99 mmol/L Normal 98-107 [facility] Comment on above: Order Comment: UNKNO WN1N Performed By: #### L 501.6710, L101.9900, L100.0100, L506.0250, L503.6550, L503.0105, L501.5200, L504.2610, L501.2300, L500.4050, L100.9950, L503.6030 ####[facility] [address] [place], [address] CO2 [Moles/Vol] 28.0 mmol/L Normal 21.0-32.0 [facility] Comment on above: Order Comment: UNKNO WN1N Performed By: #### L 501.6710, L101.9900, L100.0100, L506.0250, L503.6550, L503.0105, L501.5200, L504.2610, L501.2300, L500.4050, L100.9950, L503.6030 ####[facility] [address] [place], [place], [phone]) Creatinine [Mass/Vol] 0.80 mg/dL Normal 0.55-1.02 [facility] Comment on above: Order Comment: UNKNO WN1N Result Comment: The validity of the calculated GFR GFRAA in patients over 70 years has not been determined. Clinical correlation is essential. Performed By: #### L 501.6710, L101.9900, L100.0100, L506.0250, L503.6550, L503.0105, L501.5200, L504.2610, L501.2300, L500.4050, L100.9950, L503.6030 ####[facility] [address] [place], [place], [phone]) ECRCL 60.38 ml/min Normal [facility] Comment on above: Order Comment: UNKNO WN1N Performed By: #### L 501.6710, L101.9900, L100.0100, L506.0250, L503.6550, L503.0105, L501.5200, L504.2610, L501.2300, L500.4050, L100.9950, L503.6030 ####[facility] [address] [place], [place], [phone](789) EST GFR - AA 91 mL/min Normal >60 [facility] Comment on above: Order Comment: UNKNO WN1N Result Comment: Afri can Dutch GFR Calc Performed By: #### L 501.6710, L101.9900, L100.0100, L506.0250, L503.6550, L503.0105, L501.5200, L504.2610, L501.2300, L500.4050, L100.9950, L503.6030 ####[facility] [address] [place], [place], [phone] GAP 6 Normal 5-15 [facility] Comment on above: Order Comment: UNKNO WN1N Performed By: #### L 501.6710, L101.9900, L100.0100, L506.0250, L503.6550, L503.0105, L501.5200, L504.2610, L501.2300, L500.4050, L100.9950, L503.6030 ####[facility] [address] [place], [address] GFR/1.73 sq M.predicted among non-blacks MDRD (S/P/Bld) [Vol rate/Area] 75 mL/min/{1.73_m2} Normal >60 [facility] Comment on above: Order Comment: UNKNO WN1N Result Comment: Non- GFR Calc Performed By: #### L 501.6710, L101.9900, L100.0100, L506.0250, L503.6550, L503.0105, L501.5200, L504.2610, L501.2300, L500.4050, L100.9950, L503.6030 ####[facility] [address] [place], [place], [phone] Globulin (S) [Mass/Vol] 5.2 g/dL High 2.2-4.2 [facility] Comment on above: Order Comment: UNKNO WN1N Performed By: #### L 501.6710, L101.9900, L100.0100, L506.0250, L503.6550, L503.0105, L501.5200, L504.2610, L501.2300, L500.4050, L100.9950, L503.6030 ####[facility] [address] [place], [address] Glucose [Mass/Vol] 120 mg/dL High 74-106 [facility] Comment on above: Order Comment: UNKNO WN1N Result Comment: Fast ing Glucose result from 100 to 125 mg/dL suggests IMPAIRED HOMEOSTASIS per A.D.A. criteria. Performed By: #### L 501.6710, L101.9900, L100.0100, L506.0250, L503.6550, L503.0105, L501.5200, L504.2610, L501.2300, L500.4050, L100.9950, L503.6030 ####[facility] [address] [place], [phone] Potassium [Moles/Vol] 4.2 mmol/L Normal 3.5-5.1 [facility] Comment on above: Order Comment: UNKNO WN1N Performed By: #### L 501.6710, L101.9900, L100.0100, L506.0250, L503.6550, L503.0105, L501.5200, L504.2610, L501.2300, L500.4050, L100.9950, L503.6030 ####[facility] [address] [place], [place], [phone] Sodium [Moles/Vol] 133 mmol/L Low 136-145 [facility] Comment on above: Order Comment: UNKNO WN1N Performed By: #### L 501.6710, L101.9900, L100.0100, L506.0250, L503.6550, L503.0105, L501.5200, L504.2610, L501.2300, L500.4050, L100.9950, L503.6030 ####[facility] [address] [place], [place], [phone] T PROT 7.9 g/dL Normal 6.4-8.2 [facility] Comment on above: Order Comment: UNKNO WN1N Performed By: #### L 501.6710, L101.9900, L100.0100, L506.0250, L503.6550, L503.0105, L501.5200, L504.2610, L501.2300, L500.4050, L100.9950, L503.6030 ####[facility] [address] [place], [address] Urea nitrogen [Mass/Vol] 18 mg/dL Normal 7-18 [facility] Comment on above: Order Comment: UNKNO WN1N Performed By: #### L 501.6710, L101.9900, L100.0100, L506.0250, L503.6550, L503.0105, L501.5200, L504.2610, L501.2300, L500.4050, L100.9950, L503.6030 ####[facility] [address] [place], [address] Eosinophil percentageOrdered By: Jae Clarke on 07-14-2024 Eosinophils/100 WBC (Bld) 0.1 % 0-5 [facility] Erythrocyte Sed Rateon 07-14 SED RATE 95 mm/hr High 0-30 [facility] Comment on above: Order Comment: CRITI SHAW VALUE CALLED TO LEONOR FANN 07/14/24 Gomez Tavarez. RESULTS READ BACK BY SAME. Performed By: #### L 501.6710, L101.9900, L100.0100, L506.0250, L503.6550, L503.0105, L501.5200, L504.2610, L501.2300, L500.4050, L100.9950, L503.6030 #### [facility] [address] [place], [address] Erythrocyte distribution wid th ratioOrdered By: Jae Clarke on 07-14-2024 Erythrocyte distribution width (RBC) [Ratio] 15.4 % High 11.6-14.6 [facility] Erythrocyte distribution wid th standard deviationOrdered By: Jae Clarke on 07-14-2024 Erythrocyte distribution width (RBC) [Entitic vol] 52.5 fL High 35.1-43.9 [facility] Erythrocyte sedimentation ra teOrdered By: Jae Clarke on 07-14-2024 ESR (Bld) [Velocity] 95 mm/h High 0-30 [facility] Estimated glomerular filtrat ion rate (GFR) AmericanOrdered By: Jae Clarke on 07-14-2024 Estimated GFR (MDRD) Amer 91 mL/min >60 [facility] Comment on above: GFR Calc Estimation of creatinine renata aranceOrdered By: Jae Clarke on 07-14-2024 Estimated Creatinine Clearance Calc 60.38 ml/min [facility] Ferritinon 07-14-2024 Ferritin [Mass/Vol] 174 ng/mL Normal -252 [facility] Comment on above: Order Comment: UNKNO WN1N Performed By: #### L 501.6710, L101.9900, L100.0100, L506.0250, L503.6550, L503.0105, L501.5200, L504.2610, L501.2300, L500.4050, L100.9950, L503.6030 ####[facility] [address] [place], [place], [phone] Ferritin measurementOrdered By: Jae Clarke on 07-14-2024 Ferritin [Mass/Vol] 174 ng/mL [facility] Folates, (Folic Acid)on FOLATES 30.30 ng/mL Normal 3.1-55.4 [facility] Comment on above: Order Comment: UNKNO WN1N Performed By: #### L 501.6710, L101.9900, L100.0100, L506.0250, L503.6550, L503.0105, L501.5200, L504.2610, L501.2300, L500.4050, L100.9950, L503.6030 ####[facility] [address] [place], [address] Folic acid measurementOrdere d By: Jae Clarke on 07-14-2024 Folate 30.30 ng/mL 3.1-55.4 [facility] Gamma glutamyl transferase ( GGT) measurementOrdered By: Jae Clarke on 07-14-2024 Amylase [Catalytic activity/Vol] 19 U/L 0-60 [facility] Comment on above: Performed at: [address] [id number] Director: William Bryant PhD, Phone: [phone] Glomerular filtration rate ( GFR) estimationOrdered By: Jae Clarke on 07-14-2024 Estimated GFR (MDRD) Non-Af Amer 75 mL/min >60 [facility] Comment on above: Non- GFR Calc Glucose measurementOrdered B y: Jae Clarke on 07-14-2024 Glucose [Mass/Vol] 120 mg/dL High 74-106 [facility] Comment on above: Fasting Glucose resu lt from 100 to 125 mg/dL suggests IMPAIRED HOMEOSTASIS per A.D.A. criteria. Hematocrit Auto (Bld) [Volum e fraction]Ordered By: Jae Clarke on 07-14-2024 Hematocrit (Bld) [Volume fraction] 35.0 % Low 37-47 [facility] Hemoglobin (Reticulocytes) [ Entitic mass]Ordered By: Jae Clarke on 07-14-2024 Reticulocyte Hemoglobin Equivalent 31.6 pg 30-35 [facility] Hemoglobin measurementOrdere d By: Jae Clarke on 07-14-2024 Hemoglobin (Bld) [Mass/Vol] 11.0 g/dL Low 12.0-15.0 [facility] Immature granulocytes/100 WB C Auto (Bld)Ordered By: Jae Clarke on 07-14-2024 Immature granulocytes/100 WBC (Bld) 0.300 % 0.0-0.9 [facility] Comment on above: IG% - Immature Granu locytes (promyelocytes, myelocytes and metamyelocytes) > 1% indicates that a LEFT SHIFT is Present. Immature reticulocyte fracti onOrdered By: Jae Clarke on 07-14-2024 Immature Reticulocyte Fraction 17.80 % High 3.00-15.90 [facility] Iron (Unsp spec) [Mass/Mass] Ordered By: Jae Clarke on 07-14-2024 Iron [Mass/Vol] 35 ug/dL Low 50-170 [facility] Iron saturation [Mass fracti on]Ordered By: Jae Clarke on 07-14-2024 Iron Saturation 12.8 % Low 15.0-55.0 [facility] Iron+Iron Binding Capacityon 07-14-2024 Iron [Mass/Vol] 35 ug/dL Low 50-170 [facility] Comment on above: Order Comment: UNKNO WN1N Performed By: #### L 501.6710, L101.9900, L100.0100, L506.0250, L503.6550, L503.0105, L501.5200, L504.2610, L501.2300, L500.4050, L100.9950, L503.6030 ####[facility] [address] [place], [address] IRON SATURATION 12.8 Low 15.0-55.0 [facility] Comment on above: Order Comment: UNKNO WN1N Performed By: #### L 501.6710, L101.9900, L100.0100, L506.0250, L503.6550, L503.0105, L501.5200, L504.2610, L501.2300, L500.4050, L100.9950, L503.6030 ####[facility] [address] [place], [place], [phone] TIBC 274 ug/dL Normal 250-450 [facility] Comment on above: Order Comment: UNKNO WN1N Performed By: #### L 501.6710, L101.9900, L100.0100, L506.0250, L503.6550, L503.0105, L501.5200, L504.2610, L501.2300, L500.4050, L100.9950, L503.6030 ####[facility] [address] [place], [address] LDHon 07-14-2024 LDH 104 U/L Normal 84-246 [facility] Comment on above: Order Comment: UNKNO WN1N Performed By: #### L 501.6710, L101.9900, L100.0100, L506.0250, L503.6550, L503.0105, L501.5200, L504.2610, L501.2300, L500.4050, L100.9950, L503.6030 ####[facility] [address] [place], [place], [id number] Laboratory - Chemistry and C hemistry - challengeOrdered By: Jae Dalton on 07-14-2024 AST [Catalytic activity/Vol] 14 U/L Low 15-37 [facility] Lactate dehydrogenase (LDH) [facility]Ordered By: [facility] LDH [Catalytic activity/Vol] 104 U/L 84-246 [facility] Lymphocytes Auto (Unsp spec) [#/Vol]Ordered By: Jae [facility] on 07-14-2024 Lymphocytes (Bld) [#/Vol] 123.61 10*3/uL High 0.83-4.51 [facility] Lymphocytes/100 WBC Auto (Un sp spec)Ordered By: [facility] Lymphocytes/100 WBC (Bld) 92.5 % High 19-41 [facility] MCV (mean corpuscular volume ) determinationOrdered By: Jae [facility] on 07-14-2024 MCV (RBC) [Entitic vol] 94.1 fL 81-99 [facility] Magnesiumon 07-14-2024 Magnesium [Mass/Vol] 2.1 mg/dL Normal 1.6-2.6 [facility] Comment on above: Order Comment: UNKNO WN1N Performed By: #### L 501.6710, L101.9900, L100.0100, L506.0250, L503.6550, L503.0105, L501.5200, L504.2610, L501.2300, L500.4050, L100.9950, L503.6030 ####[facility] [address] [place], [address] Magnesium measurementOrdered By: Jae Clarke on 07-14-2024 Magnesium [Mass/Vol] 2.1 mg/dL 1.6-2.6 [facility] Mean corpuscular hemoglobin (MCH) determinationOrdered By: Jae [facility] on 07-14-2024 MCH (RBC) [Entitic mass] 29.6 pg 27.0-32.0 [facility] Mean corpuscular hemoglobin concentration (MCHC) determinationOrdered By: [facility] on 07-14-2024 MCHC (RBC) [Mass/Vol] 31.4 g/dL Low 32-36 [facility] Mean platelet volume determi nationOrdered By: Jae Clarke on 07-14-2024 Platelet mean volume (Bld) [Entitic vol] 10.6 fL 6.2-12.0 [facility] Monocyte percentageOrdered B y: [facility] on 07-14-2024 Monocytes/100 WBC (Bld) 2.2 % 0-10 [facility] Neutrophil percentageOrdered By: [facility] on 07-14-2024 Neutrophils/100 WBC (Bld) 4.8 % Low 47-70 [facility] Nucleated red blood cell per centageOrdered By: [facility] on 07-14-2024 Nucleated RBC/100 WBC (Bld) [Ratio] 0 % 0-5 [facility] Pathologist review Dominic (Unsp spec) [Interp]Ordered By: [facility]2024 Differential Pathologist's Review Reviewed [facility] Comment on above: Previous reported re sult: Christine kline Edited by: ALICIA on 07/16/24:09ABSOLUTE LYMPHOCYTOSIS CONSISTENT WITH CLL/SLLNormocytic anemia.Clinical correlation necessary.Ed Tomas D.O. 07/16/24 AMENDED REPORT 07/16/24 0908 PATH REV previously reported as: Christine kline Phosphoruson 07-14-2024 Phosphate [Mass/Vol] 3.4 mg/dL Normal 2.5-4.9 [facility] Comment on above: Order Comment: UNKNO WN1N Performed By: #### L 501.6710, L101.9900, L100.0100, L506.0250, L503.6550, L503.0105, L501.5200, L504.2610, L501.2300, L500.4050, L100.9950, L503.6030 ####[facility] [address] [place], [place], [phone] Phosphorus measurementOrdere d By: Jae Vince on 07-14-2024 Phosphorus Level 3.4 mg/dL 2.5-4.9 [facility] Platelet countOrdered By: Radha gloria Vince on 07-14-2024 Platelets (Bld) [#/Vol] 262 10*3/uL 150-450 [facility] Potassium measurementOrdered By: Jae Vince on 07-14-2024 Potassium [Moles/Vol] 4.2 mmol/L 3.5-5.1 [facility] RBC Auto (Bld) [#/Vol]Ordere d By: Jae Vince on 07-14-2024 RBC (Bld) [#/Vol] 3.72 10*6/uL Low 4.2-5.4 [facility] Reactive lymphocyte countOrd ered By: Jae Vince on 07-14-2024 Reactive Lymphocytes 3+ [facility] Retic Panelon 07-14-2024 IM RET FRACTION 17.80 High 3.00-15.90 [facility] Comment on above: Order Comment: CRITI SHAW VALUE CALLED TO LEONOR SMITH 07/14/24 Gomez Tavarez. RESULTS READ BACK BY SAME. Performed By: #### L 501.6710, L101.9900, L100.0100, L506.0250, L503.6550, L503.0105, L501.5200, L504.2610, L501.2300, L500.4050, L100.9950, L503.6030 #### [facility] [address] [place], [place], [phone] RET-HE 31.6 pg Normal 30-35 [facility] Comment on above: Order Comment: CRITI SHAW VALUE CALLED TO LEONOR SMITH 07/14/24 Gomez Tavarez. RESULTS READ BACK BY SAME. Performed By: #### L 501.6710, L101.9900, L100.0100, L506.0250, L503.6550, L503.0105, L501.5200, L504.2610, L501.2300, L500.4050, L100.9950, L503.6030 #### [facility] [address] [place], [place], [phone] (187) Retic Count 2.04 High 0.5-1.5 [facility] Comment on above: Order Comment: CRITI SHAW VALUE CALLED TO LEONOR SARAH 07/14/24 1359 Emily Tavarez. RESULTS READ BACK BY SAME. Performed By: #### L 501.6710, L101.9900, L100.0100, L506.0250, L503.6550, L503.0105, L501.5200, L504.2610, L501.2300, L500.4050, L100.9950, L503.6030 #### [facility] [address] [place], [place], [phone] Reticulocyte hemoglobin equi valent (RET-He) measurementOrdered By: Jae Clarke on 07-14-2024 Hemoglobin (Reticulocytes) [Entitic mass] 31.6 pg 30-35 [facility] Reticulocytes Auto (Bld) [#/ Vol]Ordered By: Jae Clarke on 07-14-2024 Reticulocyte Count 2.04 % High 0.5-1.5 [facility] Reticulocytes/100 RBC (Bld) 2.04 % High 0.5-1.5 [facility] Review by pathologistOrdered By: Jae Clarke on 07-14-2024 Pathologist review Dominic (Unsp spec) [Interp] Reviewed [facility] Comment on above: Previous reported re sult: Christine kline Edited by: ALICIA on 07/16/24:907ABSOLUTE LYMPHOCYTOSIS CONSISTENT WITH CLL/SLLNormocytic anemia.Clinical correlation necessary.Ed Tomas D.O. 07/16/24 AMENDED REPORT 07/16/24 09 PATH REV previously reported as: Christine kline Serum anion gap measurementO rdered By: Jae Clarke on 07-14-2024 Anion gap [Moles/Vol] 6 mmol/L 5-15 [facility] Serum globulin measurementOr dered By: Jae Clarke on 07-14-2024 Globulin (S) [Mass/Vol] 5.2 g/dL High 2.2-4.2 [facility] Serum or plasma alanine jiménez otransferase (ALT) measurementOrdered By: Jae Clarke on 07-14-2024 ALT [Catalytic activity/Vol] 18 U/L 13-56 [facility] Serum or plasma albumin raheel urement (mass/volume)Ordered By: Jae Clrake on 07-14-2024 Albumin [Mass/Vol] 2.7 g/dL Low 3.2-5.0 [facility] Serum or plasma alkaline latoya sphatase measurementOrdered By: Jae Clarke on 07-14-2024 ALP [Catalytic activity/Vol] 99 U/L 45-117 [facility] Serum or plasma calcium raheel urement (mass/volume)Ordered By: Jae Clarke on 07-14-2024 Calcium [Mass/Vol] 9.5 mg/dL 8.5-10.1 [facility] Serum or plasma creatinine m easurement (mass/volume)Ordered By: Jae Clarke on 07-14-2024 Creatinine [Mass/Vol] 0.80 mg/dL 0.55-1.02 [facility] Comment on above: The validity of the calculated GFR & GFRAA in patients over 70 years has not been determined. Clinical correlation is essential. Serum or plasma urea nitroge n measurement (mass/volume)Ordered By: Jae Clarke on 07-14-2024 Urea nitrogen [Mass/Vol] 18 mg/dL 7-18 [facility] Sodium levelOrdered By: Mitchell Clarke on 07-14-2024 Sodium [Moles/Vol] 133 mmol/L Low 136-145 [facility] TIBCOrdered By: Jae Clarke on 07-14-2024 Total Iron Binding Capacity 274 ug/dL 250-450 [facility] Total proteinOrdered By: Pasha Clarke on 07-14-2024 Protein [Mass/Vol] 7.9 g/dL 6.4-8.2 [facility] Vitamin B12on 07-14-2024 Cobalamin (Vitamin B12) [Mass/Vol] 700 pg/mL Normal 211-911 [facility] Comment on above: Performed By: #### L 501.6710, L101.9900, L100.0100, L506.0250, L503.6550, L503.0105, L501.5200, L504.2610, L501.2300, L500.4050, L100.9950, L503.6030 #### [facility] [address] [place], [address] Vitamin B12 measurementOrder ed By: Jae Clarke on 07-14-2024 Cobalamin (Vitamin B12) [Mass/Vol] 700 pg/mL 211-911 [facility] White blood cell (WBC) count Ordered By: Jae Clarke on 07-14-2024 WBC (Bld) [#/Vol] 133.7 10*3/uL High 4.4-11.0 [facility] Radiation Oncology Visiton 0 04-21-2024 Radiation Oncology Visit [facility] [address] [place] [address] OFFICE VISIT Date of Service: 04/21/24 1437 MR#: [id number] Acct: [id number] Name: SHRUTHI MITCHELL Rep #: [id number] : 1950 From: Mil Hampton DO Age/Sex: 73/F Location: [facility] – [place] Status: Signed Intake Vital Signs 07/30/23 13:34 02/04/24 11:04 04/21/24 14:38 Height 5 ft 5 ft 5 ft Weight: 145 lb 3 oz BMI 28.3 BP 119/74 Blood Pressure Location Rt brachial Position Sitting Respiration 18 Pulse 89 Pulse Source Monitor Temp 97.1 F L Temperature Source Temporal Artery Pulse Oximetry (%) 96 Oxygen Delivery Method room air Intake Visit Reasons: 1 YR F/U BREAST Is patient in pain?: No Allergies No Known Allergies Allergy (Verified 04/21/24 14:40) Medications ???Medication ???Instructions ???Recorded ???Confirmed ???Type dupilumab [Dupixent Syringe] 2 ml subcut UD 10/13/19 04/21/24 History melatonin 10 mg sublingual tablet 10 mg PO QHS sleep 10/27/19 04/21/24 History calcium-vitamin D3-vitamin K 500 1 ea PO DAILY 10/13/20 04/21/24 History mg-1,000 unit-40 mcg chewable tablet potassium chloride 20 mEq 40 meq (2 x 20 mEq) PO DAILY 5 01/24/22 04/21/24 Rx tablet,extended release days #10 tabs lisinopril 10 1 tab PO DAILY 09/18/22 04/21/24 History mg-hydrochlorothiazide 12.5 mg tablet mecobalamin (vitamin B12) 2,500 2,500 mcg PO DAILY 09/18/22 04/21/24 History mcg chewable tablet anastrozole 1 mg tablet 1 mg PO DAILY #90 TABLETS 01/07/24 04/21/24 Rx Have you fallen in the past year?: No PFSH PFSH Medical History Pneumonia CLL (chronic lymphocytic leukemia) 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 Breast cancer Gout Candidiasis of breast Hypertension Tobacco abuse Acute appendicitis with generalized peritonitis Thickened endometrium Home Medications ???Medication ???Instructions ???Recorded ???Last Taken ???Type dupilumab [Dupixent Syringe] 2 ml subcut UD 10/13/19 09/29/19 History melatonin 10 mg sublingual tablet 10 mg PO QHS sleep 10/27/19 Unknown History calcium-vitamin D3-vitamin K 500 1 ea PO DAILY 10/13/20 Unknown History mg-1,000 unit-40 mcg chewable tablet potassium chloride 20 mEq 40 meq (2 x 20 mEq) PO DAILY 5 01/24/22 Unknown Rx tablet,extended release days #10 tabs lisinopril 10 1 tab PO DAILY 09/18/22 Unknown History mg-hydrochlorothiazide 12.5 mg tablet mecobalamin (vitamin B12) 2,500 2,500 mcg PO DAILY 09/18/22 Unknown History mcg chewable tablet anastrozole 1 mg tablet 1 mg PO DAILY #90 TABLETS 01/07/24 Unknown Rx Allergy/AdvReac Type Severity Reaction Status Date / Time No Known Allergies Allergy Verified 04/21/24 14:40 Family History Mother Diabetes Breast cancer Hypertension Daughter Asthma Pulmonary hypertension Surgical History History of lumpectomy of left breast ( 10/2019) History of left breast biopsy ( 10/2019) Hx of appendectomy Social History Smoking Status: Former smoker alcohol intake: never substance use type: does not use caffeine: Yes what type of physical activity do you participate in: walking frequency: 5-6 times per week shelby/samaritan: Uatsdin seatbelt use: always do you feel safe at home: Yes Diagnosis: Shruthi Mitchell is a 73 year-old female with history significant for right breast cancer (1995) treated with lumpectomy and adjuvant radiation therapy who has been diagnosed with pathologic stage IA, prognostic pathologic stage IA (pT1b pN0 (sn) Mx) grade 1 invasive ductal carcinoma (ER >95%, NV >95%, Her2 1+ IHC) of the left breast s/p screening mammography (10/08/2019), diagnostic mammogram and ultrasound (10/12/2019), ultrasound-guided core biopsy (10/16/2019), lumpectomy and sentinel lymph node biopsy (10/28/2019), and evaluation by medical oncology found to have a Oncotype DX score of 18 and planning to proceed with hormone therapy alone. From 01/07/2020 - 01/13/2020 she received left accelerated partial breast irradiation consisting of 3850 cGy in 10 fractions. History of Present Illness: 1995: Patient had right breast lumpectomy followed by chemotherapy and radiation therapy. From 11/27/95 - 01/09/96: Received whole breast radiation to the right breast consisting of 5000 cGy in 25 fractions over 35 days using lateral tangent reynolds followed by a scar boost consisting of 1000 cGy in 5 fractions. 10/08/2019: Bilateral screening mammography was performed which demonstrated some new microcalcifications seen in the left breast approximately 5 cm posterior to the left nipple, these are very difficult to characteriz (more content not included)... Normal [facility] Oncology Visit Reporton 01-11 Oncology Visit Report [facility] [address] [place] [address] OFFICE VISIT Date of Service: 02/04/24 1102 MR#: [id number] Acct: [id number] Name: SHRUTHI MITCHELL Rep #: [id number] : 1950 From: Jae Clarke MD Age/Sex: 73/F Location[facility] Status: Signed HPI Subjective Date of Service 02/04/24 Chief Complaint F/u for CLL and R breast cancer. History of Present Illness 73-year-old female with #1-Bilateral breasts cancers: A past medical history notable for right breast cancer node positive over 20 years earlier treated with lumpectomy, chemotherapy, radiation therapy and a short (less than 1 year) course of tamoxifen.??? These records are not available. She was faithful with annual screening mammograms. October 08, 2019 screening mammogram: ??? Questionable new microcalcifications are noted in the inferior medial aspect of the left breast . October 12, 2019 left breast ultrasound: IMPRESSION: 6 mm x 6 mm x 6 mm slightly irregular hypoechoic solid nodule at the 2:00 position of the breast at 6 cm from the nipple.??? Mild posterior shadowing. A biopsy is recommended. October 16, 2019???Left breast, ultrasound-guided needle core biopsy: Invasive ductal carcinoma with the following characteristics: ? Maximal length??? 8 millimeters ? Nuclear grade??? 1-2/3 ANTIBODY / CLONE? RESULT P53??? (DO-7)? positive, 5% Ki-67??? (30-9)? positive, 10% CK8??? (36iclmM15) positive CK5-6??? (D5 1684) ? negative Calponin-1 (QK087Y) ? negative P40??? (BC28) negative E-Cad??? (ECH-6) ? positive AYERS-2??? (SP21) ? positive MORPHOMETRIC ANALYSIS ? ER (clone 6F11) ? >95% NV (clone 16/1E2) ? >95% Her-2Neu (clone CB11) ? 1+ October 28, 2019 left breast partial mastectomy with sentinel lymph node biopsy: FROZEN SECTION DIAGNOSIS A.??? Axillary sentinel lymph nodes, biopsy: Two out of two lymph nodes negative for carcinoma. MICROSCOPIC DIAGNOSIS A.??? Axillary sentinel lymph nodes, biopsy: Two out of two lymph nodes, negative for metastatic carcinoma. See comment. B.??? 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 See cancer summary below. C.??? Additional tissue left breast: Fragments of mature adipose tissue, negative for carcinoma. BREAST CANCER SUMMARY Procedure - excision with wire-guided localization Specimen laterality??? left Invasive tumor: Tumor site??? not specified Tumor size??? 1 x 1 x 0.7 cm Histologic type??? invasive ductal carcinoma, not otherwise specified Histologic grade (Stevinson grade): Glandular/tubular differentiation score - 2 Nuclear pleomorphism score - 2 Mitotic count score - 1 Overall grade??? grade 1 (score of 5) Tumor focality??? 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 Size (extent) of DCIS: Estimated size (extent) - The DCIS comprise about 25% of the total tumor volume. Number of blocks with DCIS??? 3 ? Architectural pattern??? comedo and solid ? Nuclear grade??? grade 2 (intermediate) ? Necrosis??? present, central (expansive ???comedo??? necrosis) Lobular carcinoma in situ??? not identified. Tumor extension: Skin??? skin is not present Nipple??? not applicable Skeletal muscle??? no skeletal muscle is present. Margin??? Invasive carcinoma and ductal carcinoma in situ are 0.4 cm away from the closest inferior margin. Regional lymph nodes: ? Total number of lymph nodes examined - 2 ? Total number of sentinel lymph nodes examined - 2 ? Number of lymph nodes with macrometastasis, micrometastasis and isolated tumor cells??? 0 Treatment effect??? no known presurgical therapy Lymphvascular invasion??? not identified Dermal lymphvascular invasion??? not applicable Additional Pathologic Findings??? - fibrocystic changes, adenosis and intraductal hyperplasia without atypia. - Hyalinized fibroadenoma with focal calcifications (1.1 x 0.5 cm, measured microscopically). Ancillary Studies:??? Previously performed on same tumor ([id number] / [id number]) ER:??? positive (>95%) NV:??? positive (>95%) Her2 samuel (IHC):??? negative (1+) Microcalcifications??? present in ductal carcinoma in situ and non-neoplastic tissue. Clinical History - Please make reference to previous specimen ([id number]) left breast, ultrasound- guided needle core biop (more content not included)... Normal [facility] Lower GI hemoglobin IA Ql (S tl)Ordered By: Jae Clarke on 01-27-2024 Stool Occult Blood (SOFIA) [facility] Stool Occult Blood iFOBon STOB Negative Normal [facility] Comment on above: Performed By: #### M 100.7900 #### [facility] [place], [address] Stool gastrointestinal hemog lobin detection by immunologic methodOrdered By: Jae Clarke on 01-27-2024 Lower GI hemoglobin IA Ql (Stl) [facility] Blood manual differential co mment interpretation (narrative result)Ordered By: Jae Clarke on 01-21-2024 Manual differential comment Dominic (Bld) [Interp] SEE COMMENTS [facility] Comment on above: MONOCYTOSIS NOTED LY MPHOCYTOSIS NOTEDLEUKOCYTOSIS NOTED Deamidated gliadin IgA antib marlen assayOrdered By: Jae Clarke on 01-21-2024 Anti-Gliadin IgA Antibody 5 units 0-19 [facility] Comment on above: Negative 0 - 19 Weak Positive 20 - 30 Moderate to Strong Positive >30 Deamidated gliadin IgG antib marlen assayOrdered By: Jae Clarke on 01-21-2024 Anti-Gliadin IgG Antibody 3 units 0-19 [facility] Comment on above: Negative 0 - 19 Weak Positive 20 - 30 Moderate to Strong Positive >30 Endomysial IgA antibody assa yOrdered By: Jae Clarke on 01-21-2024 Endomysial IgA Antibody Negative Negative [facility] Erythrocyte morphology asses smentOrdered By: Jae Clarke on 01-21-2024 RBC morphology finding Nom (Bld) N CHROM NORMAL NORM C&C [facility] - Hematology and Cell countsOrdered By: Jae Clarke on 01-21-2024 Anisocytosis Ql (Bld) RARE [facility] Macrocytes Ql (Bld)Ordered B y: Jae Clarke on 01-21-2024 Macrocytosis [facility] Macrocytes detectionOrdered By: Jae Clarke on 01-21-2024 Macrocytes Ql (Bld) RARE [facility] Manual differential comment Dominic (Bld) [Interp]Ordered By: Jae Clarke on 01-21-2024 Differential Comment SEE COMMENTS [facility] Comment on above: MONOCYTOSIS NOTED LY MPHOCYTOSIS NOTEDLEUKOCYTOSIS NOTED No Panel InformationOrdered By: Jae Clarke on 01-21-2024 Tissue Transglutaminase IgG Ab <2 U/mL 0-5 [facility] Comment on above: Negative 0 - 5 Weak Positive 6 - 9 Positive >9 Platelets LM Ql (Bld)Ordered By: Jae Clarke on 01-21-2024 [address] ADEQ [facility] RBC morphology finding Nom ( Bld)Ordered By: Jae Clarke on 01-21-2024 Red Blood Cell Morphology N CHROM NORMAL NORM C&C [facility] Serum immunoglobulin A measu rementOrdered By: Jae Clarke on 01-21-2024 Immunoglobulin A 84 mg/dL 64-422 [facility] Comment on above: Performed at: [facility] [employer] [id number] Director: William Bryant PhD, Phone: [phone] Serum tissue transglutaminas e (tTG) IgA antibody assay (units/volume)Ordered By: Jae Clarke on 01-21-2024 tTG IgA Qn (S) <2 U/mL 0-3 [facility] Comment on above: Negative 0 - 3 Weak Positive 4 - 10 Positive >10 Tissue Transglutaminase (tTG) has been identified as the endomysial antigen. Studies have demonstr- ated that endomysial IgA antibodies have over 99% specificity for gluten sensitive enteropathy. tTG IgA Qn (S)Ordered By: Radha Clarke on 01-21-2024 Tissue Transglutaminase IgA Ab <2 U/mL 0-3 [facility] Comment on above: Negative 0 - 3 Weak Positive 4 - 10 Positive >10 Tissue Transglutaminase (tTG) has been identified as the endomysial antigen. Studies have demonstr- ated that endomysial IgA antibodies have over 99% specificity for gluten sensitive enteropathy. Addendum DocumentOrdered By: Jae Clarke on 01-14-2024 Serum Immunofixation Comments Comment . [facility] Comment on above: Protein electrophore sis scan will follow via computer,mail, or quarry manager delivery. Albumin Elph [Mass/Vol]Order ed By: Jae Clarke on 01-14-2024 Albumin [Mass/Vol] 3.0 g/dL 2.9-4.4 [facility] Alpha 1 globulin Elph [Mass/ Vol]Ordered By: Jae Clarke on 01-14-2024 Kjmhs-1-Jpnlzxybj (TARA) 0.4 g/dL 0.0-0.4 [facility] Oejqf-0-Idphenyey (TARA) 1.0 g/dL 0.4-1.0 [facility] Beta globulin Elph [Mass/Vol ]Ordered By: Jae Clarke on 01-14-2024 Beta-Globulins (TARA) 0.8 g/dL 0.7-1.3 [facility] Gamma globulin Elph [Mass/Vo l]Ordered By: Jae Clarke on 01-14-2024 Gamma Globulins (TARA) 1.9 g/dL High 0.4-1.8 [facility] IgG [Mass/Vol]Ordered By: Radha Clarke on 01-14-2024 Immunoglobulin G 686 mg/dL 586-1602 [facility] Immunoglobulin M measurement Ordered By: Jae Clarke on 01-14-2024 Immunoglobulin M 1926 mg/dL High 26-217 [facility] Comment on above: Results confirmed on dilution. Immunoglobulin light chains. kappa [Mass/Vol]Ordered By: Jae Clarke on 01-14-2024 [facility] Light Chains, Quant 48.8 mg/L High 3.3-19.4 [facility] Immunoglobulin light chains. kappa/Immunoglobulin light chains.lambda (S) [Mass ratio]Ordered By: Jae Clarke on 01-14-2024 [facility]/Lambda Light Chain Ratio 3.17 High 0.26-1.65 [facility] Comment on above: Performed at: [address] [id number] Director: William Bryant PhD, Phone: [phone] Interpretation IEP [Interp]O rdered By: Jae Clarke on 01-14-2024 Immunofixation Screen Comment High . [facility] Comment on above: Immunofixation shows IgM monoclonal protein with kappalight chain specificity.IgG appears asymmetrical. Lambda free light chain raheel urementOrdered By: Jae Clarke on 01-14-2024 Free Lambda Light Chains, Quant 15.4 mg/L 5.7-26.3 [facility] Protein Fractions Immunofixa tion Dominic [Interp]Ordered By: Jae Clarke on 01-14-2024 M-Erik (TARA) 1.4 g/dL High Not Observed [facility] Serum albumin/globulin ratio Ordered By: Jae Clarke on 01-14-2024 Albumin/Globulin (TARA) 0.8 0.7-1.7 [facility] Serum or plasma protein raheel urement (mass/volume)Ordered By: Jae Clarke on 01-14-2024 Protein [Mass/Vol] 7.1 g/dL 6.0-8.5 [facility] Basophil percentageOrdered B y: Link Carroll on 07-23-2023 Chloride [Moles/Vol] 103 mmol/L 98-107 [facility] Cholesterol [Mass/Vol] 125 mg/dL <200 [facility] Comment on above: <200 mg/dL Desirable 200-240 mg/dL Borderline >240 mg/dL High Risk Glucose [Mass/Vol] 109 mg/dL 74-106 [facility] Comment on above: Fasting Glucose resu lt from 100 to 125 mg/dL suggests IMPAIRED HOMEOSTASIS per A.D.A. criteria. Potassium [Moles/Vol] 3.7 mmol/L 3.5-5.1 [facility] Sodium [Moles/Vol] 137 mmol/L 136-145 [facility] Triglyceride [Mass/Vol] 113 mg/dL <199 [facility] Comment on above: The drugs N-Acetylcy steine and Metamizole may falsely depress this assay.Serum Triglycerides Reference Interval Normal <150 mg/dL Borderline high 150 - 199 mg/dL High 200 - 499 mg/dL Very High > or = 500 mg/dL Laboratory - Chemistry and C hemistry - challengeOrdered By: Link Carroll on 07-23-2023 CO2 [Moles/Vol] 26.0 mmol/L 21.0-32.0 [facility] Urea nitrogen/Creatinine [Mass ratio] 15.9 mg/mg 10-20 [facility] No Panel InformationOrdered By: Link Carroll on 07-23-2023 Estimated GFR (MDRD) Amer 82 mL/min >60 [facility] Comment on above: GFR Calc Estimated GFR (MDRD) Non-Af Amer 68 mL/min >60 [facility] Comment on above: Non- GFR Calc Serum or plasma calcium raheel urement (mass/volume)Ordered By: Link Carroll on 07-23-2023 Calcium [Mass/Vol] 10.0 mg/dL 8.5-10.1 [facility] Serum or plasma cholesterol in HDL measurement (mass/volume)Ordered By: Link Carroll on 07-23-2023 Cholesterol in HDL [Mass/Vol] 74 mg/dL >40 [facility] Comment on above: The drugs N-Acetylcy steine and Metamizole may falsely depress this assay. Reference Range HDL <40 mg/dL Low HDL Cholesterol HDL >or= 60 mg/dL High HDL Cholesterol Serum or plasma cholesterol in VLDL measurement (mass/volume)Ordered By: Link Carroll on 07-23-2023 Cholesterol in VLDL [Mass/Vol] 23 mg/dL 5-40 [facility] Serum or plasma creatinine m easurement (mass/volume)Ordered By: Link Carroll on 07-23-2023 Creatinine [Mass/Vol] 0.88 mg/dL 0.55-1.02 [facility] Comment on above: The validity of the calculated GFR & GFRAA in patients over 70 years has not been determined. Clinical correlation is essential. Serum or plasma low density lipoprotein (LDL) cholesterol measurement (mass/volume)Ordered By: Link Carroll on 07-23-2023 Cholesterol in LDL [Mass/Vol] 28 mg/dL 0-130 [facility] Serum or plasma urea nitroge n measurement (mass/volume)Ordered By: Link Carroll on 07-23-2023 Urea nitrogen [Mass/Vol] 14 mg/dL 7-18 [facility] Thin prep Papanicolaou smear with manual screeningOrdered By: Link Carroll on 07-23-2023 Thin prep Papanicolaou smear with manual screening 8 5-15 [facility] Absolute lymphocyte countOrd ered By: Antony Brothers on 07-22-2023 Lymphocytes Auto (Unsp spec) [#/Vol] 89.37 10*3/uL 0.83-4.51 [facility] Albumin Elph [Mass/Vol]Order ed By: Antony Brothers on 07-22-2023 Albumin [Mass/Vol] 3.1 g/dL 2.9-4.4 [facility] Basophil percentageOrdered B y: Antony Brothers on 07-22-2023 Basophils/100 WBC (Bld) 0.1 % 0-1 [facility] Bilirubin [Mass/Vol] 0.30 mg/dL 0.20-1.00 [facility] Comment on above: For patients on eltr ombopag therapy, use of Dimension Zap TBIL is not recommended. Chloride [Moles/Vol] 99 mmol/L 98-107 [facility] Eosinophils/100 WBC (Bld) 0.1 % 0-5 [facility] Glucose [Mass/Vol] 156 mg/dL 74-106 [facility] Comment on above: Fasting Glucose resu lt greater than or equal to 126 mg/dL suggests DIABETES MELLITUS per A.D.A. criteria. LDH [Catalytic activity/Vol] 110 U/L 84-246 [facility] Neutrophils (Bld) [#/Vol] 6.5 10*3/uL 2.0-7.7 [facility] Neutrophils/100 WBC (Bld) 6.6 % 47-70 [facility] Potassium [Moles/Vol] 3.7 mmol/L 3.5-5.1 [facility] Protein [Mass/Vol] 8.0 g/dL 6.4-8.2 [facility] Sodium [Moles/Vol] 135 mmol/L 136-145 [facility] WBC (Bld) [#/Vol] 98.7 10*3/uL 4.4-11.0 [facility] Comment on above: CRITICAL VALUE VERIF IED. CALLED TO LEONOR FANN109/22/22 1453 Leny Houser.RESULTS READ BACK BY SAME . Blood erythrocytes count (nu mber/volume)Ordered By: Antony Brothers on 07-22-2023 RBC (Bld) [#/Vol] 4.19 10*6/uL 4.2-5.4 [facility] Blood hemoglobin measurement (mass/volume)Ordered By: Antony Brothers on 07-22-2023 Hemoglobin (Bld) [Mass/Vol] 12.6 g/dL 12.0-15.0 [facility] Blood lymphocytes/100 leukoc ytesOrdered By: Antony Brothers on 07-22-2023 Lymphocytes/100 WBC (Bld) 90.5 % 19-41 [facility] Blood manual differential co mment interpretation (narrative result)Ordered By: Antony Brothers on 07-22-2023 Manual differential comment Dominic (Bld) [Interp] SCANNED [facility] Comment on above: LYMPHOCYTOSIS Blood monocytes/100 leukocyt esOrdered By: Antony Brothers on 07-22-2023 Monocytes/100 WBC (Bld) 2.5 % 0-10 [facility] Blood platelet mean volumeOr dered By: Antony Brothers on 07-22-2023 Platelet mean volume (Bld) [Entitic vol] 10.8 fL 6.2-12.0 [facility] Determination of erythrocyte mean corpuscular volume (MCV)Ordered By: Antony Brothers on 07-22-2023 MCV (RBC) [Entitic vol] 93.6 fL 81-99 [facility] Hematocrit Auto (Bld) [Volum e fraction]Ordered By: Antony Brothers on 07-22-2023 Hematocrit (Bld) [Volume fraction] 39.2 % 37-47 [facility] Hemoglobin in reticulocytes (mass per reticulocyte)Ordered By: Antony Brothers on 07-22-2023 Hemoglobin (Reticulocytes) [Entitic mass] 32.0 pg 30-35 [facility] Interpretation of serum or p lasma protein pattern by immunofixation (narrative resultOrdered By: Antony Brothers on 07-22-2023 Protein Fractions Immunofixation Dominic [Interp] 1.4 g/dL Not Observed [facility] - Chemistry and C hemistry - challengeOrdered By: Antony Brothers on 07-22-2023 ALP [Catalytic activity/Vol] 85 U/L 45-117 [facility] ALT [Catalytic activity/Vol] 16 U/L 13-56 [facility] CO2 [Moles/Vol] 30.0 mmol/L 21.0-32.0 [facility] Urea nitrogen/Creatinine [Mass ratio] 22.4 mg/mg 10-20 [facility] - Hematology and Cell countsOrdered By: Antony Brothers on 07-22-2023 Erythrocyte distribution width (RBC) [Entitic vol] 52.0 fL 35.1-43.9 [facility] Erythrocyte distribution width (RBC) [Ratio] 15.3 % 11.6-14.6 [facility] Immature granulocytes/100 WBC (Bld) 0.200 % 0.0-0.9 [facility] Comment on above: IG% - Immature Granu locytes (promyelocytes, myelocytes and metamyelocytes) > 1% indicates that a LEFT SHIFT is Present. MCH (RBC) [Entitic mass] 30.1 pg 27.0-32.0 [facility] Nucleated RBC/100 WBC (Bld) [Ratio] 0 % 0-5 [facility] MCHC Auto (RBC) [Mass/Vol]Or dered By: Antony Brothers on 07-22-2023 MCHC (RBC) [Mass/Vol] 32.1 g/dL 32-36 [facility] No Panel InformationOrdered By: Antony Brothers on 07-22-2023 Addendum Document Comment . [facility] Comment on above: Protein electrophore sis scan will follow via computer,mail, or quarry manager delivery.Performed at: [employer] [facility] [place] [id number] Director: William Bryant PhD, Phone: [phone] Estimated Creatinine Clearance Calc 61.26 ml/min [facility] Estimated GFR (MDRD) Amer 91 mL/min >60 [facility] Comment on above: GFR Calc Estimated GFR (MDRD) Non-Af Amer 75 mL/min >60 [facility] Comment on above: Non- GFR Calc Immature Reticulocyte Fraction 11.20 % 3.00-15.90 [facility] Reticulocyte Count 1.51 % 0.5-1.5 [facility] Platelets bldOrdered By: Gurmeet Brothers on 07-22-2023 Platelets (Bld) [#/Vol] 305 10*3/uL 150-450 [facility] Review by pathologistOrdered By: Antony Brothers on 07-22-2023 Pathologist review Dominic (Unsp spec) [Interp] Reviewed [facility] Comment on above: Previous reported re sult: December eliud Edited by: ANAHY on 07/23/23:1255Absolute lymphocytosis suggestive of low grade lympho-proliferative disorder.Clinical correlation is necessary. Norm Mayo M.D. 07/23/23 AMENDED REPORT 07/23/23 [id number] PATH REV previously reported as: December Serum [id number] measu rement by electrophoresisOrdered By: Antony Brothers on 07-22-2023 Alpha 1 globulin Elph [Mass/Vol] 0.4 g/dL 0.0-0.4 [facility] Alpha 1 globulin Elph [Mass/Vol] 1.0 g/dL 0.4-1.0 [facility] Serum globulin measurement ( mass/volume)Ordered By: Antony Brothers on 07-22-2023 Globulin (S) [Mass/Vol] 4.2 g/dL 2.2-3.9 [facility] Serum or plasma IgA measurem ent (mass/volume)Ordered By: Antony Brothers on 07-22-2023 IgA [Mass/Vol] 89 mg/dL 87-352 [facility] Serum or plasma IgG measurem ent (mass/volume)Ordered By: Antony Brothers on 07-22-2023 IgG [Mass/Vol] 615 mg/dL 586-1602 [facility] Serum or plasma IgM measurem ent (mass/volume)Ordered By: [facility] on 07-22-2023 IgM [Mass/Vol] 2028 mg/dL 26-217 [facility] Comment on above: Results confirmed on dilution. Serum or plasma albumin raheel urement (mass/volume)Ordered By: Antony Brothers on 07-22-2023 Albumin [Mass/Vol] 2.9 g/dL 3.2-5.0 [facility] Serum or plasma albumin/glob ulin mass ratioOrdered By: Antony Brothers on 07-22-2023 Albumin/Globulin [Mass ratio] 0.6 {ratio} 0.9-2.4 [facility] Serum or plasma beta globuli n measurement by electrophoresis (mass/volume)Ordered By: Antony Brothers on 07-22-2023 Beta globulin Elph [Mass/Vol] 0.9 g/dL 0.7-1.3 [facility] Serum or plasma calcium raheel urement (mass/volume)Ordered By: Antony Brothers on 07-22-2023 Calcium [Mass/Vol] 10.0 mg/dL 8.5-10.1 [facility] Serum or plasma creatinine m easurement (mass/volume)Ordered By: Antony Brothers on 07-22-2023 Creatinine [Mass/Vol] 0.80 mg/dL 0.55-1.02 [facility] Comment on above: The validity of the calculated GFR & GFRAA in patients over 70 years has not been determined. Clinical correlation is essential. Serum or plasma gamma globul in measurement by electrophoresis (mass/volume)Ordered By: Antony Brothers on 07-22-2023 Gamma globulin Elph [Mass/Vol] 1.9 g/dL 0.4-1.8 [facility] Serum or plasma immunoelectr ophoresis interpretation (nominal result)Ordered By: Antony Brothers on 07-22-2023 Interpretation IEP [Interp] Comment . [facility] Comment on above: Immunofixation shows IgM monoclonal protein with kappalight chain specificity. Serum or plasma urea nitroge n measurement (mass/volume)Ordered By: Antony Brothers on 07-22-2023 Urea nitrogen [Mass/Vol] 18 mg/dL 7-18 [facility] Thin prep Papanicolaou smear with manual screeningOrdered By: Antony Brothers on 07-22-2023 Thin prep Papanicolaou smear with manual screening 14 U/L 15-37 [facility] Thin prep Papanicolaou smear with manual screening 6 5-15 [facility] Thin prep Papanicolaou smear with manual screening 0.8 0.7-1.7 [facility] Total protein bloodOrdered B y: Antony Brothers on 07-22-2023 Protein [Mass/Vol] 7.3 g/dL 6.0-8.5 [facility] No Panel Informationon 07-19 POC SARS CoV-2 Antigen Negative [facility] Absolute lymphocyte countOrd ered By: Dr. Brothers on 09-18-2022 Lymphocytes Auto (Unsp spec) [#/Vol] 53.69 10*3/uL 0.83-4.51 [facility] Basophil percentageOrdered B y: Dr. Brothers on 09-18-2022 Basophils/100 WBC (Bld) 0.4 % 0-1 [facility] Bilirubin [Mass/Vol] 0.30 mg/dL 0.20-1.00 [facility] Comment on above: For patients on eltr ombopag therapy, use of Dimension Zap TBIL is not recommended. Chloride [Moles/Vol] 100 mmol/L 98-107 [facility] Eosinophils/100 WBC (Bld) 0.3 % 0-5 [facility] Glucose [Mass/Vol] 133 mg/dL 74-106 [facility] Comment on above: Fasting Glucose resu lt greater than or equal to 126 mg/dL suggests DIABETES MELLITUS per A.D.A. criteria. LDH [Catalytic activity/Vol] 129 U/L 84-246 [facility] Neutrophils (Bld) [#/Vol] 5.4 10*3/uL 2.0-7.7 [facility] Neutrophils/100 WBC (Bld) 8.9 % 47-70 [facility] Potassium [Moles/Vol] 3.9 mmol/L 3.5-5.1 [facility] Protein [Mass/Vol] 8.1 g/dL 6.4-8.2 [facility] Sodium [Moles/Vol] 135 mmol/L 136-145 [facility] WBC (Bld) [#/Vol] 61.4 10*3/uL 4.4-11.0 [facility] Comment on above: CRITICAL VALUE VERIF IED. CALLED TO SAJAN BROOKS [facility]09/18/22 1337 [address] Marina Boggs.RESULTS READ BACK BY SAME . Blood erythrocytes count (nu mber/volume)Ordered By: Dr. Brothers on 09-18-2022 RBC (Bld) [#/Vol] 4.81 10*6/uL 4.2-5.4 [facility] Blood hemoglobin measurement (mass/volume)Ordered By: Dr. Brothers on 09-18-2022 Hemoglobin (Bld) [Mass/Vol] 14.7 g/dL 12.0-15.0 [facility] Blood lymphocytes/100 leukoc ytesOrdered By: Dr. Brothers on 09-18-2022 Lymphocytes/100 WBC (Bld) 87.5 % 19-41 [facility] Blood manual differential co mment interpretation (narrative result)Ordered By: Dr. Brothers on 09-18-2022 Manual differential comment Dominic (Bld) [Interp] SCANNED [facility] Blood monocytes/100 leukocyt esOrdered By: Dr. Brothers on 09-18-2022 Monocytes/100 WBC (Bld) 2.7 % 0-10 [facility] Blood platelet mean volumeOr dered By: Dr. Brothers on 09-18-2022 Platelet mean volume (Bld) [Entitic vol] 10.9 fL 6.2-12.0 [facility] Determination of erythrocyte mean corpuscular volume (MCV)Ordered By: Dr. Brothers on 09-18-2022 MCV (RBC) [Entitic vol] 94.4 fL 81-99 [facility] Hematocrit Auto (Bld) [Volum e fraction]Ordered By: Dr. Brothers on 09-18-2022 Hematocrit (Bld) [Volume fraction] 45.4 % 37-47 [facility] Laboratory - Chemistry and C hemistry - challengeOrdered By: Dr. Brothers on 09-18-2022 ALP [Catalytic activity/Vol] 97 U/L 45-117 [facility] ALT [Catalytic activity/Vol] 16 U/L 13-56 [facility] CO2 [Moles/Vol] 29.0 mmol/L 21.0-32.0 [facility] Globulin (S) [Mass/Vol] 5.0 g/dL 2.2-4.2 [facility] Urea nitrogen/Creatinine [Mass ratio] 17.1 mg/mg 10-20 [facility] Laboratory - Hematology and Cell countsOrdered By: Dr. Brothers on 09-18-2022 Erythrocyte distribution width (RBC) [Entitic vol] 49.7 fL 35.1-43.9 [facility] Erythrocyte distribution width (RBC) [Ratio] 14.3 % 11.6-14.6 [facility] Immature granulocytes/100 WBC (Bld) 0.200 % 0.0-0.9 [facility] Comment on above: IG% - Immature Granu locytes (promyelocytes, myelocytes and metamyelocytes) > 1% indicates that a LEFT SHIFT is Present. MCH (RBC) [Entitic mass] 30.6 pg 27.0-32.0 [facility] Nucleated RBC/100 [facility] (B[facility]) [facility] [Mass/Vol]Or dered By: Dr. Brothers on 09-18-2022 MCHC (RBC) [Mass/Vol] 32.4 g/dL 32-36 [facility] No Panel InformationOrdered By: Dr. Brothers on 09-18-2022 Estimated Creatinine Clearance Calc 56.48 ml/min [facility] Estimated GFR (MDRD) Amer 82 mL/min >60 [facility] Comment on above: GFR Calc Estimated GFR (MDRD) Non-Af Amer 68 mL/min >60 [facility] Comment on above: Non- GFR Calc Reactive Lymphocytes 3+ [facility] Platelets bldOrdered By: Dr. Brothers on 09-18-2022 Platelets (Bld) [#/Vol] 300 10*3/uL 150-450 [facility] Review by pathologistOrdered By: Dr. Brothers on 09-18-2022 Pathologist review Dominic (Unsp spec) [Interp] Reviewed [facility] Comment on above: Previous reported re sult: Christine kline Edited by: RGOOD on 09/20/22:1352Absolute lymphocytosis suggestive of low grade lympho-proliferative disorder.Clinical correlation is necessary. Norm Mayo M.D. 09/20/22 AMENDED REPORT 09/20/22 1352 PATH REV previously reported as: Christine kline Serum or plasma albumin raheel urement (mass/volume)Ordered By: Dr. Brothers on 09-18-2022 Albumin [Mass/Vol] 3.1 g/dL 3.2-5.0 [facility] Serum or plasma albumin/glob ulin mass ratioOrdered By: Dr. Brothers on 09-18-2022 Albumin/Globulin [Mass ratio] 0.6 {ratio} 0.9-2.4 [facility] Serum or plasma calcium raheel urement (mass/volume)Ordered By: Dr. Brothers on 09-18-2022 Calcium [Mass/Vol] 9.7 mg/dL 8.5-10.1 [facility] Serum or plasma creatinine m easurement (mass/volume)Ordered By: Dr. Brothers on 09-18-2022 Creatinine [Mass/Vol] 0.88 mg/dL 0.55-1.02 [facility] Comment on above: The validity of the calculated GFR & GFRAA in patients over 70 years has not been determined. Clinical correlation is essential. Serum or plasma urea nitroge n measurement (mass/volume)Ordered By: Dr. Brothers on 09-18-2022 Urea nitrogen [Mass/Vol] 15 mg/dL 7-18 [facility] Thin prep Papanicolaou smear with manual screeningOrdered By: Dr. Brothers on 09-18-2022 Thin prep Papanicolaou smear with manual screening 13 U/L 15-37 [facility] Thin prep Papanicolaou smear with manual screening 6 5-15 [facility] Albumin Elph [Mass/Vol]Order ed By: Dr. Brothers on 05-21-2022 Albumin [Mass/Vol] 3.2 g/dL 2.9-4.4 [facility] Direct bilirubinOrdered By: Dr. Brothers on 05-21-2022 Bilirubin.direct [Mass/Vol] 0.12 mg/dL 0.00-0.30 [facility] Hemoglobin in reticulocytes (mass per reticulocyte)Ordered By: Dr. Brothers on 05-21-2022 Hemoglobin (Reticulocytes) [Entitic mass] 33.0 pg 30-35 [facility] Interpretation of serum or p lasma protein pattern by immunofixation (narrative resultOrdered By: Dr. Brothers on 05-21-2022 Protein Fractions Immunofixation Dominic [Interp] 1.4 g/dL Not Observed [facility] Iron measurement (mass/mass) Ordered By: Dr. Brothers on 05-21-2022 Iron (Unsp spec) [Mass/Mass] 74 ug/dL 50-170 [facility] No Panel InformationOrdered By: Dr. Brothers on 05-21-2022 Addendum Document Comment . [facility] Comment on above: Protein electrophore sis scan will follow via computer,mail, or quarry manager delivery.Performed at: [address] [id number] Director: William Bryant PhD, Phone: [phone] Immature Reticulocyte Fraction 7.90 % 3.00-15.90 [facility] Reticulocyte Count 1.08 % 0.5-1.5 [facility] Total Iron Binding Capacity 318 ug/dL 250-450 [facility] Vitamin B12 Level > 2000 pg/mL 211-911 [facility] Serum [id number] measu rement by electrophoresisOrdered By: Dr. Brothers on 05-21-2022 Alpha 1 globulin Elph [Mass/Vol] 0.4 g/dL 0.0-0.4 [facility] Alpha 1 globulin Elph [Mass/Vol] 1.0 g/dL 0.4-1.0 [facility] Serum or plasma IgA measurem ent (mass/volume)Ordered By: Dr. Brothers on 05-21-2022 IgA [Mass/Vol] 90 mg/dL 87-352 [facility] Serum or plasma IgG measurem ent (mass/volume)Ordered By: Dr. Brothers on 05-21-2022 IgG [Mass/Vol] 568 mg/dL 586-1602 [facility] Serum or plasma IgM measurem ent (mass/volume)Ordered By: Dr. Brothers on 05-21-2022 IgM [Mass/Vol] 2218 mg/dL 26-217 [facility] Comment on above: Results confirmed on dilution. Serum or plasma beta globuli n measurement by electrophoresis (mass/volume)Ordered By: Dr. Brothers on 05-21-2022 Beta globulin Elph [Mass/Vol] 0.8 g/dL 0.7-1.3 [facility] Serum or plasma ferritin chinmay surement (mass/volume)Ordered By: Dr. Brothers on 05-21-2022 Ferritin [Mass/Vol] 139 ng/mL 8-252 [facility] Serum or plasma folate measu rement (mass/volume)Ordered By: Dr. Brothers on 05-21-2022 Folate [Mass/Vol] 3.30 ng/mL 3.1-55.4 [facility] Serum or plasma gamma globul in measurement by electrophoresis (mass/volume)Ordered By: Dr. Brtohers on 05-21-2022 Gamma globulin Elph [Mass/Vol] 2.0 g/dL 0.4-1.8 [facility] Serum or plasma immunoelectr ophoresis interpretation (nominal result)Ordered By: Dr. Brothers on 05-21-2022 Interpretation IEP [Interp] Comment . [facility] Comment on above: Immunofixation shows IgM monoclonal protein with kappalight chain specificity. Serum or plasma iron saturat ion measurement (mass fraction)Ordered By: Dr. Brothers on 05-21-2022 Iron saturation [Mass fraction] 23.3 % 15.0-55.0 [facility] Thin prep Papanicolaou smear with manual screeningOrdered By: Dr. Brothers on 05-21-2022 Thin prep Papanicolaou smear with manual screening 0.8 0.7-1.7 [facility] Total protein bloodOrdered B y: Dr. Brothers on 05-21-2022 Protein [Mass/Vol] 7.3 g/dL 6.0-8.5 [facility] Blood platelet adequacy dete ction by light microscopyOrdered By: Dr. Brothers on 02-07-2022 Platelets LM Ql (Bld) MOD INC ADEQ [facility] No Panel InformationOrdered By: Dr. 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 Results for CCND1/IGH, CATRACHITO, chromosome 12, and NF55zvcz normal. 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 Patients with 13q deletions as thesole anomaly detected by FISH are reported to have thelongest survival time. SPECIFIC FISH RESULTS:. 13q: ABNORMAL . nuc caroline 13q14.3(DLEUx1),13q34(OPTQ0m8)[/101] CCND1/IGH: NORMAL nuc caroline 11q13(YICX3a5),14q32(IGHx2)[100]. CATRACHITO: NORMAL . nuc caroline 11q22.3(ATMx2)[100]. 12cen: NORMAL . nuc caroline 12cen(J52D5c2)[100] TP53: NORMAL nuc caroline 17p13.1(TP53x2)[100] . This analysis is limited to abnormalities detectableby the specific probes included in the study. FISH resultsshould be interpreted within the context of a fullcytogenetic analysis and hematology evaluation. REFERENCES: Seven,(2013) Adv Exp Med Biol 792:193-214.PMID#[id number]. Rory et al.,(2011) Clin Lab Med31:649-658.PMID#[id number] test was developed and its performancecharacteristics determined by [employer] ([employer]). It has not been cleared orapproved by the U.S. Food and Drug Administration. The DNAprobe vendor for this study was [employer] ([employer]).Director Review: Comment:EDGAR ZEE, PHD TESTING PERFORMED AT [facility]. ORIGINAL REPORT ON FILE IN LAB CONTAINS ADDITIONAL TEST SITE INFORMATION. RBC morphologyOrdered By: Dr Lio Brothers on 02-07-2022 RBC morphology finding Nom (Bld) NORM C+C NORMAL NORM C&C [facility] Absolute lymphocyte counton 01-24-2022 Lymphocytes Auto (Unsp spec) [#/Vol] 28.34 10*3/uL 0.83-4.51 [facility] Work Phone: Comment on above: Previous reported re sult: 32.36 X10^3/uLEdited by: NIURKA on 01/24/22:1453 AMENDED REPORT 01/24/22 1453 Absolute Lymph previously reported as: 32.36 H X10^3/uL Basophil percentageon 2021 Basophil percentage 0-5 SEEN /hpf 0-5 [facility] Work Phone: Basophil percentage [employer] [facility] Work Phone: Comment on above: Previous reported re sult: 36.9 %Edited by: NIURKA on 01/24/22:1452 AMENDED REPORT 01/24/221451 NEUT% previously reported as: 36.9 L % Previous reported re sult: 0.0 %Edited by: NIURKA on 01/24/22:1452 AMENDED REPORT 01/24/221451 EO% previously reported as: 0.0 % Previous reported re sult: 0.3 %Edited by: NIURKA on 01/24/22:1452 AMENDED REPORT 01/24/221451 BASO% previously reported as: 0.3 % Bilirubin [Mass/Vol] 0.80 mg/dL 0.20-1.00 [facility] Work Phone: Comment on above: For patients on eltr ombopag therapy, use of Dimension Zap TBIL is not recommended. Chloride [Moles/Vol] 97 mmol/L 98-107 [facility] Work Phone: Glucose [Mass/Vol] 133 mg/dL 74-106 [facility] Work Phone: Comment on above: Fasting Glucose resu lt greater than or equal to 126 mg/dL suggests DIABETES MELLITUS per A.D.A. criteria. Lactate [Moles/Vol] 0.9 mmol/L 0.4-2.0 [facility] Work Phone: Neutrophils (Bld) [#/Vol] 26.5 10*3/uL 2.0-7.7 [facility] Work Phone: Comment on above: Previous reported re sult: 22.2 X10^3/uLEdited by: NIURKA on 01/24/22:1453 AMENDED REPORT 01/24/221452 Absolute Neut previously reported as: 22.2 H X10^3/uL Potassium [Moles/Vol] 3.0 mmol/L 3.5-5.1 [facility] Work Phone: Protein [Mass/Vol] 7.4 g/dL 6.4-8.2 [facility] Work Phone: [phone] Sodium [Moles/Vol] 134 mmol/L 136-145 [facility] Work Phone: [phone] WBC (Bld) [#/Vol] 60.3 10*3/uL 4.4-11.0 [facility] Work Phone: Comment on above: CRITICAL VALUE VERIF IED. CALLED TO KAUR BRUCE01/24/22 Lux5 Saji Perez.RESULTS READ BACK BY SAME . Bilirubin Test strip Ql (U)o n 01-24-2022 Bilirubin Ql (U) 1 mg/dL Negative [facility] Work Phone: Comment on above: COLOR OF URINE MAY A FFECT DIPSTICK RESULTS. Blood band neutrophil count as percentage of total leukocyteson 01-24-2022 Band form neutrophils/100 WBC (Bld) 2 % 0-5 [facility] Work Phone: [phone] Blood blasts/100 leukocyteso n 01-24-2022 Blasts/100 WBC (Bld) 1 % 0-0 [facility] Work Phone: Blood erythrocytes count (nu mber/volume)on 01-24-2022 RBC (Bld) [#/Vol] 3.59 10*6/uL 4.2-5.4 [facility] Work Phone: Blood hemoglobin measurement (mass/volume)on 01-24-2022 Hemoglobin (Bld) [Mass/Vol] 11.0 g/dL 12.0-15.0 [facility] Work Phone: [phone] Blood lymphocytes/100 leukoc yteson 01-24-2022 Lymphocytes/100 WBC (Bld) [employer] [facility] Work Phone: Comment on above: Previous reported re sult: 53.6 %Edited by: NIURKA on 01/24/22:3602 AMENDED REPORT 01/24/22 1452 LY% previously reported as: 53.6 H % Lymphocytes/100 WBC (Bld) 47 % 19-41 [facility] Work Phone: [phone] Blood monocytes/100 leukocyt eson 01-24-2022 Monocytes/100 WBC (Bld) [employer] [facility] Work Phone: Comment on above: Previous reported re sult: 7.1 %Edited by: NIURKA on 01/24/22:1452 AMENDED REPORT 01/24/22 145 MONO% previously reported as: 7.1 % Monocytes/100 WBC (Bld) 7 % 0-10 [facility] Work Phone: Blood platelet adequacy dete ction by light microscopyon 01-24-2022 Platelets LM Ql (Bld) MKD INC ADEQ [facility] Work Phone: [phone] Blood platelet mean volumeon 01-24-2022 Platelet mean volume (Bld) [Entitic vol] 10.1 fL 6.2-12.0 [facility] Work Phone: [phone] Blood promyelocytes/100 leuk ocyteson 01-24-2022 Promyelocytes/100 WBC (Bld) 1 % 0-0 [facility] Work Phone: [phone] Blood segmented neutrophils/ 100 leukocyteson 01-24-2022 Segmented neutrophils/100 WBC (Bld) 42 % 47-70 [facility] Work Phone: Determination of erythrocyte mean corpuscular volume (MCV)on 01-24-2022 MCV (RBC) [Entitic vol] 90.8 fL 81-99 [facility] Work Phone: [phone] Hematocrit Auto (Bld) [Volum e fraction]on 01-24-2022 Hematocrit (Bld) [Volume fraction] 32.6 % 37-47 [facility] Work Phone: Ketones Test strip Ql (U)on 01-24-2022 Ketones Ql (U) Negative Negative [facility] Work Phone: Laboratory - Chemistry and C hemistry - challengeon 01-24-2022 ALP [Catalytic activity/Vol] 304 U/L 45-117 [facility] Work Phone: ALT [Catalytic activity/Vol] 17 U/L 13-56 [facility] Work Phone: CO2 [Moles/Vol] 30.0 mmol/L 21.0-32.0 [facility] Work Phone: Globulin (S) [Mass/Vol] 5.6 g/dL 2.2-4.2 [facility] Work Phone: Urea nitrogen/Creatinine [Mass ratio] 17.5 mg/mg 10-20 [facility] Work Phone: Laboratory - Hematology and Cell countson 01-24-2022 Erythrocyte distribution width (RBC) [Entitic vol] 47.6 fL 35.1-43.9 [facility] Work Phone: Erythrocyte distribution width (RBC) [Ratio] 14.3 % 11.6-14.6 [facility] Work Phone: MCH (RBC) [Entitic mass] 30.6 pg 27.0-32.0 [facility] Work Phone: MCHC Auto (RBC) [Mass/Vol]on 01-24-2022 MCHC (RBC) [Mass/Vol] 33.7 g/dL 32-36 [facility] Work Phone: Mucus LM Ql (Urine sed)on Mucus Ql (Urine sed) RARE /hpf [facility] Work Phone: Nitrite Test strip Ql (U)on 01-24-2022 Nitrite Ql (U) Negative Negative [facility] Work Phone: No Panel Informationon 01-24 Estimated Creatinine Clearance Calc 47.67 ml/min [facility] Work Phone: Estimated GFR (MDRD) Amer 91 mL/min >60 [facility] Work Phone: Comment on above: GFR Calc Estimated GFR (MDRD) Non-Af Amer 76 mL/min >60 [facility] Work Phone: Comment on above: Non- GFR Calc Immature Granulocyte % (Auto) [employer] [facility] Work Phone: Comment on above: Previous reported re sult: 2.100 %Edited by: NIURKA on 01/24/22:1452 AMENDED REPORT 01/24/22 145 IM GRAN % previously reported as: 2.100 H % IG% - Immature Granulocytes (promyelocytes, myelocytes and metamyelocytes) > 1% indicates that a LEFT SHIFT is Present. Nucleated Red Blood Cells % [employer] [facility] Work Phone: Comment on above: Previous reported re sult: 0 %Edited by: NIURKA on 01/24/22:1453 AMENDED REPORT 01/24/221452 NRBC, FLAGGED previously reported as: 0 % Platelets bldon 01-24-2022 Platelets (Bld) [#/Vol] 613 10*3/uL 150-450 [facility] Work Phone: Protein Test strip Ql (U)on 01-24-2022 Protein Ql (U) 30 mg/dl Negative [facility] Work Phone: RBC morphologyon 01-24-2022 RBC morphology finding Nom (Bld) NORM C+C NORMAL NORM C&C [facility] Work Phone: Review by pathologiston 01-10 Pathologist review Dominic (Unsp spec) [Interp] May foll [facility] Work Phone: Serum or plasma albumin raheel urement (mass/volume)on 01-24-2022 Albumin [Mass/Vol] 1.8 g/dL 3.2-5.0 [facility] Work Phone: Serum or plasma albumin/glob ulin mass ratioon 01-24-2022 Albumin/Globulin [Mass ratio] 0.3 {ratio} 0.9-2.4 [facility] Work Phone: Serum or plasma calcium raheel urement (mass/volume)on 01-24-2022 Calcium [Mass/Vol] 9.4 mg/dL 8.5-10.1 [facility] Work Phone: Serum or plasma creatinine m easurement (mass/volume)on 01-24-2022 Creatinine [Mass/Vol] 0.80 mg/dL 0.55-1.02 [facility] Work Phone: Comment on above: The validity of the calculated GFR & GFRAA in patients over 70 years has not been determined. Clinical correlation is essential. Serum or plasma urea nitroge n measurement (mass/volume)on 01-24-2022 Urea nitrogen [Mass/Vol] 14 mg/dL 7-18 [facility] Work Phone: Squamous epithelial cells de tection in urine sediment by light microscopyon 01-24-2022 Epithelial cells.squamous LM Ql (Urine sed) 0-5 SEEN /hpf 5-10 [facility] Work Phone: Thin prep Papanicolaou smear with manual screeningon 01-24-2022 Thin prep Papanicolaou smear with manual screening 16 U/L 15-37 [facility] Work Phone: [phone] Thin prep Papanicolaou smear with manual screening [address] [facility] Work Phone: Total cell counton 2 Cells counted [employer] (Bld/Tiss) [#] [address] [facility] Work Phone: Urine blood detectionon 01-10 RBC Ql (U) 50 /ul Negative [facility] Work Phone: RBC Ql (U) 0-5 SEEN /hpf 0-5 [facility] Work Phone: Urine clarityon 01-24-2022 Clarity (U) Sl. Cloudy Clear [facility] Work Phone: Urine color determinationon 01-24-2022 Color (U) Thea Yellow [facility] Work Phone: Urine glucose detectionon Glucose Ql (U) Normal mg/dl Normal [facility] Work Phone: Urine leukocyte esterase det ection by dipstickon 01-24-2022 Leukocyte esterase Test strip Ql (U) 100 /ul Negative [facility] Work Phone: [phone] Urine pHon 01-24-2022 pH (U) 6.0 [pH] 5.0 - 8.0 [facility] Work Phone: Urine sediment bacteria coun t by microscopy (number/high power field)on 01-24-2022 Bacteria LM.HPF (Urine sed) [#/Area] 1 /[HPF] None Seen [facility] Work Phone: [phone] Urine specific gravity measu rementon 01-24-2022 Specific gravity (U) [Rel density] 1.010 1.002-1.[address] [facility] Work Phone: Urobilinogen Auto test strip Ql (U)on 01-24-2022 Urobilinogen Ql (U) 1 mg/dl Normal [facility] Work Phone: Absolute lymphocyte counton 12-11-2021 Lymphocytes Auto (Unsp spec) [#/Vol] 39.49 10*3/uL 0.83-4.51 [facility] Work Phone: Basophil percentageon 2021 Basophils/100 WBC (Bld) 0.4 % 0-1 [facility] Work Phone: Bilirubin [Mass/Vol] 0.40 mg/dL 0.20-1.00 [facility] Work Phone: Comment on above: For patients on eltr ombopag therapy, use of Dimension Zap TBIL is not recommended. Chloride [Moles/Vol] 99 mmol/L 98-107 [facility] Work Phone: Eosinophils/100 WBC (Bld) 0.7 % 0-5 [facility] Work Phone: Glucose [Mass/Vol] 105 mg/dL 74-106 [facility] Work Phone: Comment on above: Fasting Glucose resu lt from 100 to 125 mg/dL suggests IMPAIRED HOMEOSTASIS per A.D.A. criteria. Neutrophils (Bld) [#/Vol] 6.4 10*3/uL 2.0-7.7 [facility] Work Phone: [phone] Neutrophils/100 WBC (Bld) 12.7 % 47-70 [facility] Work Phone: [phone] Potassium [Moles/Vol] 3.9 mmol/L 3.5-5.1 [facility] Work Phone: [phone] Protein [Mass/Vol] 8.3 g/dL 6.4-8.2 [facility] Work Phone: [phone] Sodium [Moles/Vol] 132 mmol/L 136-145 [facility] Work Phone: [phone] WBC (Bld) [#/Vol] 50.0 10*3/uL 4.4-11.0 [facility] Work Phone: Comment on above: CRITICAL VALUE VERIF IED. CALLED TO CELSO MUÑOZ12/11/21 0934 Leny Houser.RESULTS READ BACK BY SAME . Blood erythrocytes count (nu mber/volume)on 12-11-2021 RBC (Bld) [#/Vol] 4.43 10*6/uL 4.2-5.4 [facility] Work Phone: [phone] Blood hemoglobin measurement (mass/volume)on 12-11-2021 Hemoglobin (Bld) [Mass/Vol] 13.4 g/dL 12.0-15.0 [facility] Work Phone: Blood lymphocytes/100 leukoc yteson 12-11-2021 Lymphocytes/100 WBC (Bld) 78.9 % 19-41 [facility] Work Phone: Blood monocytes/100 leukocyt eson 12-11-2021 Monocytes/100 WBC (Bld) 7.0 % 0-10 [facility] Work Phone: [phone] Blood platelet adequacy dete ction by light microscopyon 12-11-2021 Platelets LM Ql (Bld) ADEQUATE ADEQ [facility] Work Phone: Blood platelet mean volumeon 12-11-2021 Platelet mean volume (Bld) [Entitic vol] 11.2 fL 6.2-12.0 [facility] Work Phone: Determination of erythrocyte mean corpuscular volume (MCV)on 12-11-2021 MCV (RBC) [Entitic vol] 93.7 fL 81-99 [facility] Work Phone: Hematocrit Auto (Bld) [Volum e fraction]on 12-11-2021 Hematocrit (Bld) [Volume fraction] 41.5 % 37-47 [facility] Work Phone: Laboratory - Chemistry and C hemistry - challengeon 12-11-2021 ALP [Catalytic activity/Vol] 92 U/L 45-117 [facility] Work Phone: [phone] ALT [Catalytic activity/Vol] 15 U/L 13-56 [facility] Work Phone: [phone] CO2 [Moles/Vol] 28.0 mmol/L 21.0-32.0 [facility] Work Phone: [phone] Globulin (S) [Mass/Vol] 5.2 g/dL 2.2-4.2 [facility] Work Phone: [phone] Urea nitrogen/Creatinine [Mass ratio] 17.3 mg/mg 10-20 [facility] Work Phone: Laboratory - Hematology and Cell countson 12-11-2021 Erythrocyte distribution width (RBC) [Entitic vol] 50.4 fL 35.1-43.9 [facility] Work Phone: [phone] Erythrocyte distribution width (RBC) [Ratio] 14.6 % 11.6-14.6 [facility] Work Phone: [phone] Immature granulocytes/100 WBC (Bld) 0.300 % 0.0-0.9 [facility] Work Phone: [phone] Comment on above: IG% - Immature Granu locytes (promyelocytes, myelocytes and metamyelocytes) > 1% indicates that a LEFT SHIFT is Present. MCH (RBC) [Entitic mass] 30.2 pg 27.0-32.0 [facility] Work Phone: Nucleated RBC/100 WBC (Bld) [Ratio] 0 % 0-5 [facility] Work Phone: MCHC Auto (RBC) [Mass/Vol]on 12-11-2021 MCHC (RBC) [Mass/Vol] 32.3 g/dL 32-36 [facility] Work Phone: No Panel Informationon 12-11 Estimated Creatinine Clearance Calc 49.70 ml/min [facility] Work Phone: Estimated GFR (MDRD) Amer 98 mL/min >60 [facility] Work Phone: Comment on above: GFR Calc Estimated GFR (MDRD) Non-Af Amer 81 mL/min >60 [facility] Work Phone: Comment on above: Non- GFR Calc Platelets bldon 12-11-2021 Platelets (Bld) [#/Vol] 320 10*3/uL 150-450 [facility] Work Phone: RBC morphologyon 12-11-2021 RBC morphology finding Nom (Bld) NORM C+C NORMAL NORM C&C [facility] Work Phone: Review by pathologiston 05 Pathologist review Dominic (Unsp spec) [Interp] Reviewed [facility] Work Phone: Comment on above: Previous reported re sult: Christine kline Edited by: [email or web address] on 12/13/21:1222Absolute lymphocytosis suggestive of low grade lympho-proliferative disorder.Clinical correlation is necessary. Norm Mayo M.D. 12/13/21 AMENDED REPORT 12/13/21 1222 PATH REV previously reported as: Christine kline Serum or plasma albumin raheel urement (mass/volume)on 12-11-2021 Albumin [Mass/Vol] 3.1 g/dL 3.2-5.0 [facility] Work Phone: Serum or plasma albumin/glob ulin mass ratioon 12-11-2021 Albumin/Globulin [Mass ratio] 0.6 {ratio} 0.9-2.4 [facility] Work Phone: Serum or plasma calcium raheel urement (mass/volume)on 12-11-2021 Calcium [Mass/Vol] 10.1 mg/dL 8.5-10.1 [facility] Work Phone: Serum or plasma creatinine m easurement (mass/volume)on 12-11-2021 Creatinine [Mass/Vol] 0.75 mg/dL 0.55-1.02 [facility] Work Phone: Comment on above: The validity of the calculated GFR & GFRAA in patients over 70 years has not been determined. Clinical correlation is essential. Serum or plasma urea nitroge n measurement (mass/volume)on 12-11-2021 Urea nitrogen [Mass/Vol] 13 mg/dL 7-18 [facility] Work Phone: Thin prep Papanicolaou smear with manual screeningon 12-11-2021 Thin prep Papanicolaou smear with manual screening 13 U/L 15-37 [facility] Work Phone: Thin prep Papanicolaou smear with manual screening 5 5-15 [facility] Work Phone: Thin prep Papanicolaou smear with manual screening 105 U/L 84-246 [facility] Work Phone: Absolute lymphocyte counton 11-13-2021 Lymphocytes Auto (Unsp spec) [#/Vol] 34.70 10*3/uL 0.83-4.51 [facility] Work Phone: Basophil percentageon 2021 Basophils/100 WBC (Bld) 0.4 % 0-1 [facility] Work Phone: Bilirubin [Mass/Vol] 0.40 mg/dL 0.20-1.00 [facility] Work Phone: Comment on above: For patients on eltr ombopag therapy, use of Dimension Zap TBIL is not recommended. Chloride [Moles/Vol] 103 mmol/L 98-107 [facility] Work Phone: Eosinophils/100 WBC (Bld) 0.6 % 0-5 [facility] Work Phone: Glucose [Mass/Vol] 106 mg/dL 74-106 [facility] Work Phone: [phone] Comment on above: Fasting Glucose resu lt from 100 to 125 mg/dL suggests IMPAIRED HOMEOSTASIS per A.D.A. criteria. Neutrophils (Bld) [#/Vol] 4.8 10*3/uL 2.0-7.7 [facility] Work Phone: Neutrophils/100 WBC (Bld) 11.3 % 47-70 [facility] Work Phone: Potassium [Moles/Vol] 3.5 mmol/L 3.5-5.1 [facility] Work Phone: [phone] Protein [Mass/Vol] 7.9 g/dL 6.4-8.2 [facility] Work Phone: Sodium [Moles/Vol] 138 mmol/L 136-145 [facility] Work Phone: WBC (Bld) [#/Vol] 42.4 10*3/uL 4.4-11.0 [facility] Work Phone: [phone] Comment on above: CRITICAL VALUE VERIF IED. CALLED TO KELLY MOELLER (ONC)11/13/21 1044 Miller Dowling.RESULTS READ BACK BY SAME. Blood erythrocytes count (nu mber/volume)on 11-13-2021 RBC (Bld) [#/Vol] 4.54 10*6/uL 4.2-5.4 [facility] Work Phone: [phone] Blood hemoglobin measurement (mass/volume)on 11-13-2021 Hemoglobin (Bld) [Mass/Vol] 13.6 g/dL 12.0-15.0 [facility] Work Phone: Blood lymphocytes/100 leukoc yteson 11-13-2021 Lymphocytes/100 WBC (Bld) 81.9 % 19-41 [facility] Work Phone: Blood manual differential co mment interpretation (narrative result)on 11-13-2021 Manual differential comment Dominic (Bld) [Interp] COMMENT [facility] Work Phone: Comment on above: LYMPHOCYTOSIS.MONOCY TOSIS.LEUKOCYTOSIS. Blood monocytes/100 leukocyt eson 11-13-2021 Monocytes/100 WBC (Bld) 5.5 % 0-10 [facility] Work Phone: Blood platelet mean volumeon 11-13-2021 Platelet mean volume (Bld) [Entitic vol] 11.7 fL 6.2-12.0 [facility] Work Phone: Determination of erythrocyte mean corpuscular volume (MCV)on 11-13-2021 MCV (RBC) [Entitic vol] 94.3 fL 81-99 [facility] Work Phone: HBV core Ab Ql (S)on 022 Hepatitis B Core Total Antibody Negative Negative [facility] HBV surface Ag IA Qlon 11-13 Hepatitis B Surface Antigen Negative Negative [facility] Hematocrit Auto (Bld) [Volum e fraction]on 11-13-2021 Hematocrit (Bld) [Volume fraction] 42.8 % 37-47 [facility] Work Phone: Hemoglobin in reticulocytes (mass per reticulocyte)on 11-13-2021 Hemoglobin (Reticulocytes) [Entitic mass] 33.2 pg 30-35 [facility] Work Phone: Interpretation of serum or p lasma protein pattern by immunofixation (narrative resulton 11-13-2021 Protein Fractions Immunofixation Dominic [Interp] 1.5 g/dL Not Observed [facility] Work Phone: Laboratory - Chemistry and C hemistry - challengeon 11-13-2021 ALP [Catalytic activity/Vol] 90 U/L 45-117 [facility] Work Phone: ALT [Catalytic activity/Vol] 17 U/L 13-56 [facility] Work Phone: CO2 [Moles/Vol] 28.0 mmol/L 21.0-32.0 [facility] Work Phone: Urea nitrogen/Creatinine [Mass ratio] 20.3 mg/mg 10-20 [facility] Work Phone: Laboratory - Hematology and Cell countson 11-13-2021 Erythrocyte distribution width (RBC) [Entitic vol] 50.6 fL 35.1-43.9 [facility] Work Phone: Erythrocyte distribution width (RBC) [Ratio] 14.6 % 11.6-14.6 [facility] Work Phone: Immature granulocytes/100 WBC (Bld) 0.300 % 0.0-0.9 [facility] Work Phone: Comment on above: IG% - Immature Granu locytes (promyelocytes, myelocytes and metamyelocytes) > 1% indicates that a LEFT SHIFT is Present. MCH (RBC) [Entitic mass] 30.0 pg 27.0-32.0 [facility] Work Phone: Nucleated RBC/100 WBC (Bld) [Ratio] 0 % 0-5 [facility] Work Phone: MCHC Auto (RBC) [Mass/Vol]on 11-13-2021 MCHC (RBC) [Mass/Vol] 31.8 g/dL 32-36 [facility] Work Phone: No Panel Informationon 11-13 Addendum Document Comment . [facility] Work Phone: Comment on above: Protein electrophore sis scan will follow via computer,mail, or quarry manager delivery.Performed at: [address] [id number] Director: William Bryant PhD, Phone: [phone] Estimated Creatinine Clearance Calc 59.17 ml/min [facility] Work Phone: Estimated GFR (MDRD) Amer 87 mL/min >60 [facility] Work Phone: Comment on above: GFR Calc Estimated GFR (MDRD) Non-Af Amer 72 mL/min >60 [facility] Work Phone: Comment on above: Non- GFR Calc Hepatitis B Surface Antibody Non-Reactive . [facility] Comment on above: Non Reactive: Incons istent with immunity, less than 10 mIU/mL Reactive: Consistent with immunity, greater than 9.9 mIU/mL Hepatitis C Antibody 0.1 s/co ratio 0.0-0.9 [facility] Hepatitis C Antibody Comment Comment . [facility] Comment on above: NegativeNot infected with HCV, unless recent infection issuspected or other evidence exists to indicate HCVinfection. Immature Reticulocyte Fraction 7.40 % 3.00-15.90 [facility] Work Phone: Miscellaneous Test See comment [facility] Work Phone: Comment on above: Scanned image report available in EMR Reactive Lymphocytes 1+ [facility] Work Phone: Reticulocyte Count 1.37 % 0.5-1.5 [facility] Work Phone: Platelets bldon 11-13-2021 Platelets (Bld) [#/Vol] 288 10*3/uL 150-450 [facility] Work Phone: Review by pathologiston Pathologist review Dominic (Unsp spec) [Interp] Reviewed [facility] Work Phone: Comment on above: Previous reported re sult: Christine kline Edited by: ZAK on 11/13/21:1237Absolute lymphocytosis suggestive of low grade lympho-proliferative disorder.Clinical correlation is necessary. Norm Mayo M.D. 11/13/21 AMENDED REPORT 11/13/21 1237 PATH REV previously reported as: Christine kline Serum fablt-3-emtoertz measu rement by electrophoresison 11-13-2021 Alpha 1 globulin Elph [Mass/Vol] 0.3 g/dL 0.0-0.4 [facility] Work Phone: Alpha 1 globulin Elph [Mass/Vol] 1.0 g/dL 0.4-1.0 [facility] Work Phone: Serum globulin measurement ( mass/volume)on 11-13-2021 Globulin (S) [Mass/Vol] 4.2 g/dL [facility] Work Phone: Serum hepatitis B virus core antibody detectionon 11-13-2021 HBV core Ab Ql (S) Negative Negative [facility] Serum or plasma IgA measurem ent (mass/volume)on 11-13-2021 IgA [Mass/Vol] 85 mg/dL 87-352 [facility] Work Phone: Serum or plasma IgG measurem ent (mass/volume)on 11-13-2021 IgG [Mass/Vol] 565 mg/dL [phone] [facility] Work Phone: Serum or plasma IgM measurem ent (mass/volume)on 11-13-2021 IgM [Mass/Vol] 2332 mg/dL 26-217 [facility] Work Phone: Comment on above: Results confirmed on dilution. Serum or plasma albumin raheel urement (mass/volume)on 11-13-2021 Albumin [Mass/Vol] 3.1 g/dL 2.9-4.4 [facility] Work Phone: Serum or plasma albumin/glob ulin mass ratioon 11-13-2021 Albumin/Globulin [Mass ratio] 0.6 {ratio} 0.9-2.4 [facility] Work Phone: Serum or plasma beta globuli n measurement by electrophoresis (mass/volume)on 11-13-2021 Beta globulin Elph [Mass/Vol] 0.9 g/dL 0.7-1.3 [facility] Work Phone: Serum or plasma calcium raheel urement (mass/volume)on 11-13-2021 Calcium [Mass/Vol] 9.5 mg/dL 8.5-10.1 [facility] Work Phone: [phone] Serum or plasma creatinine m easurement (mass/volume)on 11-13-2021 Creatinine [Mass/Vol] 0.84 mg/dL 0.55-1.02 [facility] Work Phone: Comment on above: The validity of the calculated GFR & GFRAA in patients over 70 years has not been determined. Clinical correlation is essential. Serum or plasma gamma globul in measurement by electrophoresis (mass/volume)on 11-13-2021 Gamma globulin Elph [Mass/Vol] 2.0 g/dL 0.4-1.8 [facility] Work Phone: Serum or plasma hepatitis B virus surface antigen detection by immunoassayon 11-13-2021 HBV surface Ag IA Ql Negative Negative [facility] Serum or plasma immunoelectr ophoresis interpretation (nominal result)on 11-13-2021 Interpretation IEP [Interp] Comment . [facility] Work Phone: Comment on above: Immunofixation shows IgM monoclonal protein with kappalight chain specificity. Serum or plasma urea nitroge n measurement (mass/volume)on 11-13-2021 Urea nitrogen [Mass/Vol] 17 mg/dL 7-18 [facility] Work Phone: Thin prep Papanicolaou smear with manual screeningon 11-13-2021 Thin prep Papanicolaou smear with manual screening 12 U/L 15-37 [facility] Work Phone: Thin prep Papanicolaou smear with manual screening 7 5-15 [facility] Work Phone: Thin prep Papanicolaou smear with manual screening 107 U/L 84-246 [facility] Work Phone: Thin prep Papanicolaou smear with manual screening 0.8 0.7-1.7 [facility] Work Phone: Total protein bloodon 2021 Protein [Mass/Vol] 7.3 g/dL 6.0-8.5 [facility] Work Phone: [phone] Blood lymphocytes/100 leukoc yteson 11-09-2021 Lymphocytes/100 WBC (Bld) 82 % High 19-41 [facility] Blood monocytes/100 leukocyt eson 11-09-2021 Monocytes/100 WBC (Bld) 5 % 0-10 [facility] Blood platelet adequacy dete ction by light microscopyon 11-09-2021 Platelets LM Ql (Bld) ADEQUATE ADEQ [facility] Work Phone: Blood segmented neutrophils/ 100 leukocyteson 11-09-2021 Segmented neutrophils/100 WBC (Bld) 13 % Low 47-70 [facility] Cells counted Molgen (Bld/Ti ss) [#]on 11-09-2021 Differential Total Cells Counted [address] [facility] RBC morphologyon 11-09-2021 RBC morphology finding Nom (Bld) NORM C+C NORMAL NORM C&C [facility] Work Phone: Segmented neutrophils/100 WB C (Bld)on 11-09-2021 Neutrophils/100 WBC (Bld) 13 % Low 47-70 [facility] Total cell counton Cells counted Molgen (Bld/Tiss) [#] [address] [facility] No Panel Informationon 10-04 Atypical Lymphocytes 2+ % [facility] Free Lambda Light Chains, Quant 11.1 mg/L 5.7-26.3 [facility] Serum immunoglobulin kappa l ight chains/immunoglobulin lambda light chains mass ratioon 10-04-2020 Immunoglobulin light chains.kappa/Immunoglob ulin light chains.lambda (S) [Mass ratio] 2.43 0.26-1.65 [facility] Comment on above: Performed at: [address] [id number] Director: William Bryant PhD, Phone: [phone] Serum or plasma immunoglobul in kappa light chains measurement (mass/volume)on 10-04-2020 Immunoglobulin light chains.kappa [Mass/Vol] 27.0 mg/L 3.3-19.4 [facility] No Panel Information SARS-CoV-2 & FLU Antigen (Rapid) [facility] Work Phone: Vital Signs Date Time Vital Sign Value Performing Clinician Moiz sousa 01-26-2025 16:07-0400 Body temperature 97.6 [degF] Dr. Link Carroll MD Work Phone: [facility] 01-26-2025 16:07-0400 Diastolic blood pressure 69 mm[Hg] Dr. Link Carroll MD Work Phone: 4(623)845-575181 [place] [address] 01-26-2025 16:07-0400 Heart rate 96 /min Dr. Link Carroll MD Work Phone: 9(080)781-412975 [place] [address] 01-26-2025 16:07-0400 Respiratory rate 16 /min Dr. Link Carroll MD Work Phone: 6(910)955-924175 [place] [address] 01-26-2025 16:07-0400 SaO2% (BldA) [Mass fraction] 98 % Dr. Link Carroll MD Work Phone: 3(910)725-572275 [place] [address] 01-26-2025 16:07-0400 Systolic blood pressure 142 mm[Hg] Dr. Link Carroll MD Work Phone: 8(862)943-503775 [place] [address] 01-26-2025 12:55-0400 Body height 152.[address] Link Carroll MD Work Phone: 8(797)859-526575 [place] [address] 01-19-2025 13:32-0400 Body height 152.[address] Link Carroll MD Work Phone: 1(013)569-239175 [place] [address] 01-19-2025 13:32-0400 Body mass index (BMI) [Ratio] 29.5 kg/m2 Dr. Link Carroll MD Work Phone: 4(992)897-824575 [place] [address] 01-19-2025 13:32-0400 Body temperature 98.9 [degF] Dr. Link Carroll MD Work Phone: 0(863)292-863775 [place] [address] 01-19-2025 13:32-0400 Body weight 68.[address] Link Carroll MD Work Phone: 7(521)144-003475 [place] [address] 01-19-2025 13:32-0400 Diastolic blood pressure 76 mm[Hg] Dr. Link Carroll MD Work Phone: 4(185)239-272475 [place] [address] 01-19-2025 13:32-0400 Heart rate 101 /min Dr. Link Carroll MD Work Phone: 2(914)645-272175 [place] [address] 01-19-2025 13:32-0400 Respiratory rate 18 /min Dr. Link Carroll MD Work Phone: [facility] 01-19-2025 13:32-0400 SaO2% (BldA) [Mass fraction] 99 % Dr. Link Carroll MD Work Phone: [facility] 01-19-2025 13:32-0400 Systolic blood pressure 124 mm[Hg] Dr. Link Carroll MD Work Phone: 2(447)374-777230 [address] 12-22-2024 14:10-0400 Body height 152.[address] Link Carroll MD Work Phone: 6(240)900-535975 [place] [address] 12-22-2024 14:10-0400 Body mass index (BMI) [Ratio] 29.3 kg/m2 Dr. Link Carroll MD Work Phone: 6(076)084-307375 [place] [address] 12-22-2024 14:10-0400 Body temperature 97 [degF] Dr. Link Carroll MD Work Phone: 4(498)574-930675 [place] [address] 12-22-2024 14:10-0400 Body weight 68.[address] Link Carroll MD Work Phone: 3(487)372-095975 [place] [address] 12-22-2024 14:10-0400 Diastolic blood pressure 78 mm[Hg] Dr. Link Carroll MD Work Phone: 0(858)365-833375 [place] [address] 12-22-2024 14:10-0400 Heart rate 88 /min Dr. Link Carroll MD Work Phone: 6(562)689-316975 [place] [address] 12-22-2024 14:10-0400 Respiratory rate 16 /min Dr. Link Carroll MD Work Phone: [facility] 12-22-2024 14:10-0400 SaO2% (BldA) [Mass fraction] 100 % Dr. Link Carroll MD Work Phone: 5(211)401-123930 [address] 12-22-2024 14:10-0400 Systolic blood pressure 132 mm[Hg] Dr. Link Carroll MD Work Phone: 6(008)978-412730 [address] 07-21-2024 13:37-0500 Body height 152.[address] Link Carroll MD Work Phone: [facility] 07-21-2024 13:35-0500 Body mass index (BMI) [Ratio] 29.5 kg/m2 Dr. Link Carroll MD Work Phone: 7(933)109-387381 [place] [address] 07-21-2024 13:35-0500 Body temperature 98.9 [degF] Dr. Link Carroll MD Work Phone: 3(741)699-361275 [place] [address] 07-21-2024 13:35-0500 Body weight 68.[address] Link Carroll MD Work Phone: 8(470)876-274475 [place] [address] 07-21-2024 13:35-0500 Diastolic blood pressure 74 mm[Hg] Dr. Link Carroll MD Work Phone: 5(771)305-183675 [place] [address] 07-21-2024 13:35-0500 Heart rate 85 /min Dr. Link Carroll MD Work Phone: 6(355)432-473475 [place] [address] 07-21-2024 13:35-0500 Respiratory rate 18 /min Dr. Link Carroll MD Work Phone: 3(569)649-432575 [place] [address] 07-21-2024 13:35-0500 SaO2% (BldA) [Mass fraction] 100 % Dr. Link Carroll MD Work Phone: 6(585)193-502375 [place] [address] 07-21-2024 13:35-0500 Systolic blood pressure 126 mm[Hg] Dr. Link Carroll MD Work Phone: 7(818)620-332675 [place] [address] 07-30-2023 13:34-0500 Body height 152.[address] Link Carroll Work Phone: 0(872)914-589830 [address] 07-30-2023 13:31-0500 Body mass index (BMI) [Ratio] 29.5 kg/m2 Dr. Link Carroll Work Phone: 5(349)281-797930 [address] 07-30-2023 13:31-0500 Body temperature 97.5 [degF] Dr. Link Carroll Work Phone: 7(563)904-100230 [address] 07-30-2023 13:31-0500 Body weight 68.[address] Link Carroll Work Phone: 1(626)357-464730 [address] 07-30-2023 13:31-0500 Diastolic blood pressure 74 mm[Hg] Dr. Link Carroll Work Phone: [facility] 07-30-2023 13:31-0500 Heart rate 98 /min Dr. Link Carroll Work Phone: 2(886)168-918481 [place] [address] 07-30-2023 13:31-0500 Respiratory rate 18 /min Dr. Link Carroll Work Phone: 3(981)096-596830 [address] 07-30-2023 13:31-0500 SaO2% (BldA) [Mass fraction] 98 % Dr. Link Carroll Work Phone: 1(259)164-665130 [address] 07-30-2023 13:31-0500 Systolic blood pressure 126 mm[Hg] Dr. Link Carroll Work Phone: 6(660)253-078975 [place] [address] 07-19-2023 15:22-0500 Body height 152.[address] Link Carroll Work Phone: 7(752)719-334375 [place] [address] 07-19-2023 15:22-0500 Body mass index (BMI) [Ratio] 29.9 kg/m2 Dr. Link Carroll Work Phone: 0(387)608-092875 [place] [address] 07-19-2023 15:22-0500 Body temperature 98.1 [degF] Dr. Link Carroll Work Phone: 9(781)635-600675 [place] [address] 07-19-2023 15:22-0500 Body weight 69.[address] Link Carroll Work Phone: 7(265)476-125781 [place] [address] 07-19-2023 15:22-0500 Diastolic blood pressure 75 mm[Hg] Dr. Link Carroll Work Phone: 2(987)873-077630 [address] 07-19-2023 15:22-0500 Heart rate 102 /min Dr. Link Carroll Work Phone: 6(310)394-121675 [place] [address] 07-19-2023 15:22-0500 Respiratory rate 16 /min Dr. Link Carroll Work Phone: 2(335)033-324981 [place] [address] 07-19-2023 15:22-0500 SaO2% (BldA) [Mass fraction] 96 % Dr. Link Carroll Work Phone: [facility] 07-19-2023 15:22-0500 Systolic blood pressure 122 mm[Hg] Dr. Link Carroll Work Phone: [facility] 04-02-2023 15:25-0400 Body mass index (BMI) [Ratio] 29.5 kg/m2 Dr. Link Carroll Work Phone: [facility] 04-02-2023 15:25-0400 Body temperature 98.2 [degF] Dr. Link Carroll Work Phone: [facility] 04-02-2023 15:25-0400 Body weight 68.[address] Link Carroll Work Phone: [facility] 04-02-2023 15:25-0400 Diastolic blood pressure 81 mm[Hg] Dr. Link Carroll Work Phone: [facility] 04-02-2023 15:25-0400 Heart rate 97 /min Dr. Link Carroll Work Phone: [facility] 04-02-2023 15:25-0400 Respiratory rate 16 /min Dr. Link Carroll Work Phone: [facility] 04-02-2023 15:25-0400 SaO2% (BldA) [Mass fraction] 100 % Dr. Link Carroll Work Phone: [facility] 04-02-2023 15:25-0400 Systolic blood pressure 138 mm[Hg] Dr. Link Carroll Work Phone: [facility] 09-18-2022 13:59-0500 Body height 152.[address] Link Carroll Work Phone: [facility] 09-18-2022 13:57-0500 Body mass index (BMI) [Ratio] 29.9 kg/m2 Dr. Link Carroll Work Phone: [facility] 09-18-2022 13:57-0500 Body temperature 98.1 [degF] Dr. Link Carroll Work Phone: [facility] 09-18-2022 13:57-0500 Body weight 69.[address] Link Carroll Work Phone: [facility] 09-18-2022 13:57-0500 Diastolic blood pressure 76 mm[Hg] [facility]. Link Carroll Work Phone: [facility] [facility] 09[facility]22 13:57-0500 Heart rate 91 /min Dr. Link Carroll Work Phone: [facility] 09-18-2022 13:57-0500 Respiratory rate 18 /min Dr. Link Carroll Work Phone: [facility] 09-18-2022 13:57-0500 SaO2% (BldA) [Mass fraction] 97 % Dr. Link Carroll Work Phone: [facility] 09-18-2022 13:57-0500 Systolic blood pressure 116 mm[Hg] Dr. Link Carroll Work Phone: [facility] 09-06-2022 14:30-0500 Body mass index (BMI) [Ratio] 30.3 kg/m2 Dr. Link Carroll Work Phone: [facility] 09-06-2022 14:30-0500 Body temperature 97.5 [degF] Dr. Link Carroll Work Phone: [facility] 09-06-2022 14:30-0500 Body weight 70.[address] Link Carroll Work Phone: [facility] 09-06-2022 14:30-0500 Diastolic blood pressure 84 mm[Hg] Dr. Link Carroll Work Phone: [facility] 09-06-2022 14:30-0500 Heart rate 97 /min Dr. Link Carroll Work Phone: [facility] 09-06-2022 14:30-0500 Respiratory rate 18 /min Dr. Link Carroll Work Phone: [facility] 09-06-2022 14:30-0500 SaO2% (BldA) [Mass fraction] 95 % Dr. Link Carroll Work Phone: [facility] 09-06-2022 14:30-0500 Systolic blood pressure 132 mm[Hg] Dr. Link Carroll Work Phone: [facility] 01-24-2022 15:36-0400 Diastolic blood pressure 56 mm[Hg] Dr. Link Carroll Work Phone: [facility] Work Phone: 01-24-2022 15:36-0400 Heart rate 100 /min Dr. Link aCrroll Work Phone: [facility] Work Phone: 01-24-2022 15:36-0400 Respiratory rate 16 /min Dr. Link Carroll Work Phone: [facility] Work Phone: 01-24-2022 15:36-0400 SaO2% (BldA) [Mass fraction] 100 % Dr. Link Carroll Work Phone: [facility] Work Phone: 01-24-2022 15:36-0400 Systolic blood pressure 123 mm[Hg] Dr. Link Carroll Work Phone: [facility] Work Phone: 01-24-2022 13:02-0400 Body height 152.[address] Link Carroll Work Phone: [facility] Work Phone: 01-24-2022 13:02-0400 Body mass index (BMI) [Ratio] 29.2 kg/m2 Dr. Link Carroll Work Phone: [facility] Work Phone: 01-24-2022 13:02-0400 Body temperature 101 [degF] Dr. Link Carroll Work Phone: [facility] Work Phone: 01-24-2022 13:02-0400 Body weight 68.[address] Link Carroll Work Phone: [facility] Work Phone: 12-11-2021 09:40-0400 Body mass index (BMI) [Ratio] 29.9 kg/m2 Dr. Link Carroll Work Phone: [facility] Work Phone: 12-11-2021 09:40-0400 Body temperature 97.1 [degF] Dr. Link Carroll Work Phone: [facility] Work Phone: 12-11-2021 09:40-0400 Body weight 69.[address] Link Carroll Work Phone: [facility] Work Phone: 12-11-2021 09:40-0400 Diastolic blood pressure 79 mm[Hg] Dr. Link Carroll Work Phone: [facility] Work Phone: 12-11-2021 09:40-0400 Heart rate 89 /min Dr. Link Carroll Work Phone: [facility] Work Phone: 12-11-2021 09:40-0400 Respiratory rate 18 /min Dr. Link Carroll Work Phone: [facility] Work Phone: 12-11-2021 09:40-0400 SaO2% (BldA) [Mass fraction] 98 % Dr. Link Carroll Work Phone: [facility] Work Phone: 12-11-2021 09:40-0400 Systolic blood pressure 136 mm[Hg] Dr. Link Carroll Work Phone: [facility] Work Phone: 11-13-2021 09:36-0400 Body mass index (BMI) [Ratio] 24.3 kg/m2 Dr. Link Carroll Work Phone: [facility] Work Phone: 11-13-2021 09:36-0400 Body temperature 98.2 [degF] Dr. Link Carroll Work Phone: [facility] Work Phone: 11-13-2021 09:36-0400 Body weight 68.[address] Link Carroll Work Phone: [facility] Work Phone: 11-13-2021 09:36-0400 Diastolic blood pressure 81 mm[Hg] Dr. Link Carroll Work Phone: [facility] Work Phone: 11-13-2021 09:36-0400 Heart rate 93 /min Dr. Link Carroll Work Phone: [facility] Work Phone: 11-13-2021 09:36-0400 Respiratory rate 16 /min Dr. Link Carroll Work Phone: [facility] Work Phone: 11-13-2021 09:36-0400 SaO2% (BldA) [Mass fraction] 99 % Dr. Link Carroll Work Phone: [facility] Work Phone: 11-13-2021 09:36-0400 Systolic blood pressure 137 mm[Hg] Dr. Link Carroll Work Phone: [facility] Work Phone: 11-13-2021 09:36-0400 Body height 167.[address] Link Carroll Work Phone: [facility] Work Phone: 11-13-2021 09:36-0400 Body mass index (BMI) [Ratio] 24.3 kg/m2 Dr. Link Carroll Work Phone: [facility] Work Phone: 11-13-2021 09:36-0400 Body temperature 98.2 [degF] Dr. Link Carroll Work Phone: [facility] Work Phone: 11-13-2021 09:36-0400 Body weight 68.[address] Link Carroll Work Phone: [facility] Work Phone: 11-13-2021 09:36-0400 Diastolic blood pressure 81 mm[Hg] Dr. Link Carroll Work Phone: [facility] Work Phone: 11-13-2021 09:36-0400 Heart rate 93 /min Dr. Link Carroll Work Phone: [facility] Work Phone: 11-13-2021 09:36-0400 Respiratory rate 16 /min Dr. Link Carroll Work Phone: [facility] Work Phone: 11-13-2021 09:36-0400 SaO2% (BldA) [Mass fraction] 99 % Dr. Link Carroll Work Phone: [facility] Work Phone: 11-13-2021 09:36-0400 Systolic blood pressure 137 mm[Hg] Dr. Link Carroll Work Phone: [facility] Work Phone: 08-31-2021 13:02-0500 Body temperature 98.8 [degF] Dr. Link Carroll Work Phone: [facility] Work Phone: 08-31-2021 13:02-0500 Body weight 71.[address] Link Carroll Work Phone: [facility] Work Phone: 08-31-2021 13:02-0500 Diastolic blood pressure 81 mm[Hg] Dr. Link Carroll Work Phone: [facility] Work Phone: 08-31-2021 13:02-0500 Heart rate 100 /min Dr. Link Carroll Work Phone: [facility] Work Phone: 08-31-2021 13:02-0500 Respiratory rate 14 /min Dr. Link Carroll Work Phone: [facility] Work Phone: 08-31-2021 13:02-0500 SaO2% (BldA) [Mass fraction] 100 % Dr. Link Carroll Work Phone: [facility] Work Phone: 08-31-2021 13:02-0500 Systolic blood pressure 128 mm[Hg] Dr. Link Carroll Work Phone: [facility] Work Phone: 08-14-2021 14:11-0500 Body mass index (BMI) [Ratio] 25.8 kg/m2 Dr. Link Carroll Work Phone: [facility] Work Phone: 08-14-2021 14:11-0500 Body temperature 98.8 [degF] Dr. Link Carroll Work Phone: [facility] Work Phone: 08-14-2021 14:11-0500 Body weight 72.[address] Link Carroll Work Phone: [facility] Work Phone: 08-14-2021 14:11-0500 Diastolic blood pressure 82 mm[Hg] Dr. Link Carroll Work Phone: [facility] Work Phone: 08-14-2021 14:11-0500 Heart rate 92 /min Dr. Link Carroll Work Phone: [facility] Work Phone: 08-14-2021 14:11-0500 Respiratory rate 16 /min Dr. Link Carroll Work Phone: [facility] Work Phone: 08-14-2021 14:11-0500 SaO2% (BldA) [Mass fraction] 99 % Dr. Link Carroll Work Phone: [facility] Work Phone: 08-14-2021 14:11-0500 Systolic blood pressure 127 mm[Hg] Dr. Link Carroll Work Phone: [facility] Work Phone: 10-13-2020 10:04-0500 Body temperature 98.3 [degF] Dr. Link Carroll Work Phone: [facility] 10-13-2020 10:04-0500 Diastolic blood pressure 76 mm[Hg] Dr. Link Carroll Work Phone: [facility] 10-13-2020 10:04-0500 Heart rate 93 /min Dr. Link Carroll Work Phone: [facility] 10-13-2020 10:04-0500 Respiratory rate 14 /min Dr. Link Carroll Work Phone: [facility] 10-13-2020 10:04-0500 SaO2% (BldA) [Mass fraction] 99 % Dr. Link Carroll Work Phone: [facility] 10-13-2020 10:04-0500 Systolic blood pressure 113 mm[Hg] Dr. Link Carroll Work Phone: [facility] 10-13-2020 09:04-0500 Body temperature 98.3 [degF] Dr. Link Carroll Work Phone: [facility] Work Phone: 10-13-2020 09:04-0500 Diastolic blood pressure 76 mm[Hg] Dr. Link Carroll Work Phone: [facility] Work Phone: 10-13-2020 09:04-0500 Heart rate 93 /min Dr. Link Carroll Work Phone: [facility] Work Phone: 10-13-2020 09:04-0500 Respiratory rate 14 /min Dr. Link Carroll Work Phone: [facility] Work Phone: 10-13-2020 09:04-0500 SaO2% (BldA) [Mass fraction] 99 % Dr. Link Carroll Work Phone: [facility] Work Phone: 10-13-2020 09:04-0500 Systolic blood pressure 113 mm[Hg] Dr. Link Carroll Work Phone: [facility] Work Phone: 10-04-2020 13:29-0500 Body mass index (BMI) [Ratio] 27.2 kg/m2 Dr. Link Carroll Work Phone: [facility] 10-04-2020 13:29-0500 Body weight 76.[address] Link Carroll Work Phone: [facility] 10-04-2020 12:29-0500 Body mass index (BMI) [Ratio] 27.2 kg/m2 Dr. Link Carroll Work Phone: [facility] Work Phone: 10-04-2020 12:29-0500 Body weight 76.[address] Link Carroll Work Phone: [facility] Work Phone: Encounters Encounter Date Encounter Type Care Provider Facility Start: 01-26-[address] Telma Brothers MD -[facility] Start: 01-21-2025 End: 01-21-[address] Link Carroll MD -[facility] [place] Work Phone: Start: 01-21-2025 End: 01-21-2025 ambulatory Link Carroll Facility:[facility] Start: 01-19-2025 End: 01-19-[address] Jae Clarke MD -[facility] Work Phone: Start: 01-19-2025 End: 01-19-[address] Link Carroll MD Work Phone: [facility] Work Phone: Start: 01-05-[address] Telma Brothers MD -[facility] Start: 01-05-2025 ambulatory Anil Howard Facility :[facility] Start: 12-22-2024 End: 12-22-[address] Mil Hampton DO -[facility] Work Phone: Start: 12-22-2024 End: 12-22-[address] Link Carroll MD Work Phone: [facility] Work Phone: Start: 11-16-2024 End: 11-16-[address] Link Carroll MD Work Phone: [facility] Work Phone: Start: 11-16-2024 End: 11-16-[address] Mil Hampton DO -[facility] Work Phone: Start: 11-16-2024 End: 11-16-2024 ambulatory Mil Berta Facility:[facility] Start: 10-26-2024 End: 10-26-[address] Link Carroll MD Work Phone: [facility] Work Phone: Start: 10-26-2024 End: 10-26-[address] Link Carroll MD -[facility] Start: 10-26-2024 End: 10-26-2024 ambulatory Link Carroll Facility:[facility] Start: 07-21-2024 End: 07-21-[address] Jae Clarke MD -[facility] Work Phone: Start: 07-21-2024 End: 07-21-2024 ambulatory Jae Clarke [place] [place]: 07-14-[address] Telma Brothers MD -[facility] Start: 04-21-2024 End: 04-21-2024 ambulatory Link Carroll Facility:[facility] Start: 02-04-2024 End: 02-04-2024 ambulatory [facility] Facility[place] Start: 11-14-2023 End: 11-14-[address] Link Carroll Work Phone: [facility] Work Phone: Start: 11-14-2023 End: 11-14-[address] Link Carroll Work Phone: [facility] Work Phone: Start: 07-30-2023 End: 07-30-[address] Link Carroll Work Phone: [facility] Work Phone: Start: 07-23-2023 End: 07-23-[address] Link Carroll Work Phone: [facility] Work Phone: Start: 07-23-2023 End: 07-23-[address] Link Carroll Work Phone: [facility] Start: 07-22-[address] Link Carroll Work Phone: [facility] Start: 07-19-2023 End: 07-19-[address] Link Carroll Work Phone: [facility] Work Phone: Start: 04-02-2023 End: 04-02-[address] Link Carroll Work Phone: [facility] Work Phone: Start: 11-12-2022 End: 11-12-[address] Link Carroll Work Phone: [facility] Work Phone: Start: 11-12-2022 End: 11-12-[address] Link Carroll Work Phone: [facility] Start: 09-18-[address] Link Carroll Work Phone: [facility] Start: 09-18-2022 End: 09-18-[address] Link Carroll Work Phone: [facility] Start: 09-06-2022 End: 09-06-[address] Link Carroll Work Phone: [facility] Start: 01-24-2022 End: 01-24-2022 Emergency department patient visit Dr. Link Carroll Work Phone: [facility] Start: 12-11-[address] Link Carroll Work Phone: [facility] Start: 12-11-2021 End: 12-11-[address] Link Carroll Work Phone: [facility] Start: 11-13-[address] Link Carroll Work Phone: [facility] Start: 11-13-2021 End: 11-13-[address] Link Carroll Work Phone: [facility] Start: 11-09-2021 End: 11-09-[address] Link Carroll Work Phone: [facility] Start: 08-31-2021 End: 08-31-[address] Link Carroll Work Phone: [facility] Start: 08-14-2021 End: 08-14-[address] Link Carroll Work Phone: [facility] Procedures Date Procedure Procedure Detail Performing Clinician Start: 01-21-2025 X-ray of unilateral ribs, two views without x-ray of chest Dr. Lnik Carroll MD Work Phone: Start: 01-05-2025 Albumin/Globulin ratio Dr. Link Carroll MD Work Phone: Start: 01-05-[address] Link Carroll MD Work Phone: Start: 01-05-[address] Link Carroll MD Work Phone: Comment on above: Results confirmed on dilution. Start: 01-05-2025 Lymphocyte percent differential count Dr. Link Carroll MD Work Phone: Start: 01-05-[address] Link Carroll MD Work Phone: Start: 01-05-2025 Serum inorganic phos phate measurement Dr. Link Carroll MD Work Phone: Start: 01-05-2025 Total iron binding capacity measurement Dr. Link Carroll MD Work Phone: Start: 01-05-2025 Urine lambda light c ivet measurement Dr. Link Carroll MD Work Phone: Start: 11-16-2024 Screening mammography D doroteo Carroll MD Work Phone: Start: 07-14-[address] Link Carroll MD Work Phone: Start: 07-14-[address] e fraction Dr. Link Carroll MD Work Phone: Start: 07-14-2024 Measurement of renal function Dr. Link Carroll MD Work Phone: Comment on above: GFR Calc Start: 01-27-2024 Measurement of occul t blood in stool specimen using immunoassay Dr. Link Carroll MD Work Phone: Start: 01-21-2024 Endomysial antibody IgA level Dr. Link Carroll MD Work Phone: Start: 01-21-2024 Gliadin antibody, Ig A measurement Dr. Link Carroll MD Work Phone: Comment on above: Negative 0 - 19 Weak Positive 20 - 30 Moderate to Strong Positive >30 Start: 01-21-2024 Gliadin antibody, Ig G measurement Dr. Link Carroll MD Work Phone: Comment on above: Negative 0 - 19 Weak Positive 20 - 30 Moderate to Strong Positive >30 Start: 11-14-2023 Screening mammography Harley Carroll Work Phone: Start: 11-12-2022 Screening mammography Harley Carroll Work Phone: Start: 01-24-2022 Plain chest X-ray Dr. Tony Carroll Work Phone: Start: 12-06-2021 Positron emission tomography with computed tomography Dr. Link Carroll Work Phone: Start: 11-09-2021 Screening mammography Harley Carroll Work Phone: History of appendectomy Hx of appendectom y Dr. Link Carroll Work Phone: Comment on above: 2016 SARS-CoV-2 & FLU Ant igen (Rapid) Dr. Link Carroll Work Phone: Plan of Treatment Date Care Activity Detail Author Start: 01-19-2025 Patient referral [facility] Work Phone: Start: 01-24-2022 End: 01-24-[address] [facility] Work Phone: Start: 12-28-2019 [facility] Bacteria identified in Blood by Culture Blood Culture [facility] Work Phone: Blood culture [facility] Work Phone: C reactive protein [Mass/volume] in Serum or Plasma [facility] C reactive protein [Mass/volume] in Serum or Plasma [facility] Cancer Ag 125 [Units/volume] in Serum or Plasma [facility] Cancer Ag 15-3 [Pres ence] in Serum or Plasma [facility] Cancer Ag 27-29 [Pre sence] in Serum or Plasma [facility] Carcinoembryonic Ag [Mass/volume] in Serum or Plasma [facility] CBC W Auto Different ial panel - Blood [facility] Work Phone: CBC W Auto Different ial panel - Blood [facility] CBC W Auto Different ial panel - Blood [facility] CBC W Auto Different ial panel - Blood [facility] CBC W Auto Different ial panel - Blood [facility] Cobalamin (Vitamin B 12) [Mass/volume] in Serum or Plasma [facility] Comprehensive metabo lic 1999 panel - Serum or Plasma [facility] Comprehensive metabo lic 1999 panel - Serum or Plasma [facility] Erythrocyte sediment ation rate [facility] Erythrocyte sediment ation rate [facility] Ferritin [Mass/volum e] in Serum or Plasma [facility] Ferritin [Mass/volum e] in Serum or Plasma [facility] Folate [Moles/volume ] in Serum or Plasma [facility] Immunoglobulin measurement [facility] Iron and Iron bindin g capacity panel - Serum or Plasma [facility] Lactate dehydrogenas e measurement [facility] Lactate dehydrogenas e measurement [facility] Lactate dehydrogenas e measurement [facility] LDH [facility] Work Phone: Magnesium measurement [facility] Patient Education [facility] Work Phone: Patient referral [facility] Work Phone: Positron emission tomography with computed tomography [facility] Work Phone: Procedure [facility] Work Phone: Reticulocyte count [facility] Reticulocyte count [facility] Serum immunofixation [facility] Work Phone: Serum immunofixation [facility] Serum inorganic phos phate measurement [facility] [place] Immunization Date Immunization Notes Care Provider [facility] 07-19-2023 influenza, injectabl e, quadrivalent, preservative free Dr. Link Carroll Work Phone: [facility] 05-17-2020 influenza, injectabl e, quadrivalent, preservative free Dr. Link Carroll Work Phone: [facility] 05-17-2020 influenza, seasonal, injectable Dr. Link Carroll Work Phone: [facility] 09-07-2015 influenza, injectabl e, quadrivalent, preservative free Dr. Link Carroll Work Phone: [facility] 09-07-2015 influenza, seasonal, injectable Dr. Link Carroll Work Phone: [facility] Payers Date Payer Category Payer Unknown [id number] 2019 Self-pay [id number] 2019 Unknown [id number] 2014 [id number] Unknown [id number] 2.16.8 [id number] Unknown [id number] 2.16.8 [id number] Unknown [id number] 2.16.8 [id number] Unknown [id number] 2.16.8 [id number] Unknown [id number] 2.16.8 [id number] Unknown [id number] 2.16.8 [id number] Unknown [id number] 2.16.8 [id number] Unknown [id number] 2.16.8 [id number] Unknown [id number] 2.16.8 [id number] Social History Date Type Detail Facility Start: 01-03-2021 End: 07-19-2023 Tobacco smoking status IAIS Unknown if ever smoked [facility] Start: 09-05-2015 None [facility] Start: 09-05-2015 Spouse/ Signif icant Other [facility] Start: 10-13-2020 Cigarettes [facility] Start: 1950 Sex Assigned At Female [facility] Start: 07-19-2023 Tobacco smoking status NHIS Ex-smoker (finding) [facility] Start: 11-04-2024 End: 11-20-2024 Sex Female (finding) [facility] Medical Equipment Procedure Code Equipment Code Equipment Origin al Text Equipment Identifier Dates SUTURE,LIGA CLIP MED [id number] FDA Start: 10-28-2019 SUTURE,LIGA CLIP SM LT-100 FDA Start: 10-28-2019 SUTURE,LIGA CLIP SM LT-100 FDA Start: 10-28-2019 SUTURE,LIGA CLIP SM LT-100 FDA Start: 10-28-2019 SUTURE,LIGA CLIP MED [id number] FDA Start: 10-28-2019 SUTURE,LIGA CLIP SM LT-100 FDA Start: 10-28-2019 SUTURE,LIGA CLIP SM LT-100 FDA Start: 10-28-2019 SUTURE,LIGA CLIP SM LT-100 FDA Start: 10-28-2019 SUTURE,LIGA CLIP MED [id number] FDA Start: 10-28-2019 SUTURE,LIGA CLIP SM LT-100 FDA Start: 10-28-2019 SUTURE,LIGA CLIP SM LT-100 FDA Start: 10-28-2019 SUTURE,LIGA CLIP SM LT-100 FDA Start: 10-28-2019 SUTURE,LIGA CLIP MED [id number] FDA Start: 10-28-2019 SUTURE,LIGA CLIP SM LT-100 FDA Start: 10-28-2019 SUTURE,LIGA CLIP SM LT-100 FDA Start: 10-28-2019 SUTURE,LIGA CLIP SM LT-100 FDA Start: 10-28-2019 SUTURE,LIGA CLIP MED [id number] FDA Start: 10-28-2019 SUTURE,LIGA CLIP SM LT-100 FDA Start: 10-28-2019 SUTURE,LIGA CLIP SM LT-100 FDA Start: 10-28-2019 SUTURE,LIGA CLIP SM LT-100 FDA Start: 10-28-2019 SUTURE,LIGA CLIP MED [id number] FDA Start: 10-28-2019 SUTURE,LIGA CLIP SM LT-100 FDA Start: 10-28-2019 SUTURE,LIGA CLIP SM LT-100 FDA Start: 10-28-2019 SUTURE,LIGA CLIP SM LT-100 FDA Start: 10-28-2019 SUTURE,LIGA CLIP MED [id number] FDA Start: 10-28-2019 SUTURE,LIGA CLIP SM LT-100 FDA Start: 10-28-2019 SUTURE,LIGA CLIP SM LT-100 FDA Start: 10-28-2019 SUTURE,LIGA CLIP SM LT-100 FDA Start: 10-28-2019 SUTURE,LIGA CLIP MED [id number] FDA Start: 10-28-2019 SUTURE,LIGA CLIP SM LT-100 FDA Start: 10-28-2019 SUTURE,LIGA CLIP SM LT-100 FDA Start: 10-28-2019 SUTURE,LIGA CLIP SM LT-100 FDA Start: 10-28-2019 SUTURE,LIGA CLIP MED [id number] FDA Start: 10-28-2019 SUTURE,LIGA CLIP SM LT-100 FDA Start: 10-28-2019 SUTURE,LIGA CLIP SM LT-100 FDA Start: 10-28-2019 SUTURE,LIGA CLIP SM LT-100 FDA Start: 10-28-2019 SUTURE,LIGA CLIP MED [id number] FDA Start: 10-28-2019 SUTURE,LIGA CLIP SM LT-100 FDA Start: 10-28-2019 SUTURE,LIGA CLIP SM LT-100 FDA Start: 10-28-2019 SUTURE,LIGA CLIP SM LT-100 FDA Start: 10-28-2019 Mental Status Date Assessment Result Facility 01-26-2025 Cognitive function Awake;Alert;A ppropriate;Fol lows Commands [facility] Work Phone: Clinical Notes 11-17-2019 to 01-22-2025 Note Date & Type Note Facility 01-22-2025 Radiology Diagnostic study note [facility] Imaging Services [address] [place], [place] [address] Ribs Unil 2V No CXR MR#: [id number] Acct: [id number] Name: SHRUTHI MITCHELL Rep #: [id number] : 1950 F 74 From: Abb molina Salazar MD PCP: Dr. Link Carroll MD Status: REG C LI Study:Ribs Unil 2V No CXR Date of Exam: 01/21/25 Exam# [id number] Ordering Dr: Link Carroll MD PROCEDURE: RIBS UNIL 2V NO CXR 01/21/2025 REASON FOR EXAM: PAIN TECHNIQUE: Frontal and bilateral oblique views of the bilateral ribs. COMPARISON: 01/24/2022. FINDINGS: Metallic clips are noted in the left chest wall. The lungs are expanded. There is no demonstrated parenchymal abnormality. There is no demonstrated pleural abnormality. Normal heart and pericardium. Normal mediastinum and hector. Normal visualized pulmonary arteries. Normal visualized aortic arch and descending thoracic aorta. Normal visualized thoracic spine. Normal visualized ribs, clavicles, and shoulders. There is no demonstrated abnormality of the visualized soft tissue structures ofthe upper abdomen. RAD/Ribs Unil 2V No CXR IMPRESSION: No evidence for acute abnormality. No rib fracture is seen. Reading Location: [place] [address] CC: Dr. Link Carroll MD ~ Substance Abuse Rn: Signed [facility] 01-19-2025 Progress note [facility] 01-19-2025 Progress note Note Date/Time January 19, 2025 2:11pm [facility] [address] [address] OFFICE VISIT Date of Service: 01/19/25 1330 MR#: [id number] Acct: [id number] Name: SHRUTHI MITCHELL Rep #: [id number] : 1950 From: Jae Clarke MD Age/Sex: 74/F Location: [facility] – [place] Status: Signed HPI Subjective Date of Service 01/19/25 Chief Complaint F/u for CLL and breast cancer. History of Present Illness 74-year-old female with #1-Bilateral breasts cancers: A past medical history notable for right breast cancer node positive over 20 years earlier treated with lumpectomy, chemotherapy, radiation therapy and a short (less than 1 year) course of tamoxifen.? These records are not available. She was faithful with annual screening mammograms. October 08, 2019 screening mammogram: ? Questionable new microcalcifications are noted in the inferior medial aspect of the left breast . October 12, 2019 left breast ultrasound: IMPRESSION: 6 mm x 6 mm x 6 mm slightly irregular hypoechoic solid nodule at the 2:00 position of the breast at 6 cm from the nipple.? Mild posterior shadowing. A biopsy is recommended. October 16, 2019?Left breast, ultrasound-guided needle core biopsy: Invasive ductal carcinoma with the following characteristics: ? Maximal length? 8 millimeters ? Nuclear grade? 1-2/3 ANTIBODY / CLONE? RESULT P53? (DO-7)? positive, 5% Ki-67? (30-9)? positive, 10% CK8? ([id number]) positive CK5-6? (D5 & 1684) ?? negative Calponin-1 (IJ124P) ? ?? negative P40? (BC28) negative E-Cad? (ECH-6) ? ?? positive AYERS-2? (SP21) ? positive MORPHOMETRIC ANALYSIS ? ER (clone 6F11) ? >95% NV (clone 16/1E2) ? >95% Her-2Neu (clone CB11) ? 1+ October 28, 2019 left breast partial mastectomy with sentinel lymph node biopsy: FROZEN SECTION DIAGNOSIS A.? Axillary sentinel lymph nodes, biopsy: Two out of two lymph nodes negative for carcinoma. MICROSCOPIC DIAGNOSIS A.? Axillary sentinel lymph nodes, biopsy: Two out of two lymph nodes, negative for metastatic carcinoma. See comment. B.? 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 See cancer summary below. C.? Additional tissue left breast: Fragments of mature adipose tissue, negative for carcinoma. BREAST CANCER SUMMARY Procedure - excision with wire-guided localization Specimen laterality? left Invasive tumor: Tumor site? not specified Tumor size? 1 x 1 x 0.7 cm Histologic type? invasive ductal carcinoma, not otherwise specified Histologic grade (Nicki grade): Glandular/tubular differentiation score - 2 Nuclear pleomorphism score - 2 Mitotic count score - 1 Overall grade? grade 1 (score of 5) Tumor focality? 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 Size (extent) of DCIS: Estimated size (extent) - The DCIS comprise about 25% of the total tumor volume. Number of blocks with DCIS? 3 ? Architectural pattern? comedo and solid ? Nuclear grade? grade 2 (intermediate) ? Necrosis? present, central (expansive ?comedo? necrosis) Lobular carcinoma in situ? not identified. Tumor extension: Skin? skin is not present Nipple? not applicable Skeletal muscle? no skeletal muscle is present. Margin? Invasive carcinoma and ductal carcinoma in situ are 0.4 cm away from theclosest inferior margin. Regional lymph nodes: ? Total number of lymph nodes examined - 2 ? Total number of sentinel lymph nodes examined - 2 ? Number of lymph nodes with macrometastasis, micrometastasis and isolated tumor cells? 0 Treatment effect? no known presurgical therapy Lymphvascular invasion? not identified Dermal lymphvascular invasion? not applicable Additional Pathologic Findings? - fibrocystic changes, adenosis and intraductal hyperplasia without atypia. - Hyalinized fibroadenoma with focal calcifications (1.1 x 0.5 cm, measured microscopically). Ancillary Studies:? Previously performed on same tumor ([id number] / [id number]) ER:? positive (>95%) NV:? positive (>95%) Her2 samuel (IHC):? negative (1+) Microcalcifications? present in ductal carcinoma in situ and non-neoplastic tissue. Clinical History - Please make reference to previous specimen ([id number]) left breast, ultrasound-guided needle core biopsy with diagnosis of ?invasive ductal carcinoma.? Radiologic findings:? Abnormal left breast ultrasound. Pathologic Staging:? pT1b? pN0(sn)? Mx Oncotype DX score of 18 Genetic testing January 2020: No deleterious mutation was detected, a low level of CHEK2 variant of unknown significance was found. #2-B-cell lymphoproliferative neoplasm: October 2021 incidentally noted to have anincreasing lymphocytosis over 10 K. November 13, 2021 peripheral blood flow cytometry confirmed a CD5, CD10 and CD103 negative B-cell lymphoproliferative disorder, differential diagnosis is between lymphoplasmacytic lymphoma, marginal zone lymphoma or atypical CLL. FISH panel showed 26% of nucleated cells positive for 13 q. deletion (common finding in CLL, as a sole abnormality tends to have a favorable prognosis). December 06, 2021 PET/CT initial staging for lymphoproliferative neoplasm: IMPRESSION: Negative study, no suspicious increased PET activity. Treatment summary: * Right breast cancer node positive 1990s treated with lumpectomy, chemotherapy, radiation therapy and a short (less than 1 year) course of tamoxifen.? Records not available. * Left breast cancer: - October 28, 2019 left breast partial mastectomy with sentinel lymph node biopsy. -Adjuvant Arimidex November 2019. -Adjuvant radiation:? 3850 cGy of mixed 6 and 15 MV photons in 10 fractions delivered twice daily to the lumpectomy cavity with margin using a 3D conformal technique. She was treated in the prone position to maximally spare normaltissues.? Overlap with previous right breast irradiation was avoided.? Treatment: 01/07/20 to 01/13/20. Comes for follow up. Feels well. Has stopped Anastrozole last month. 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 Breast cancer Gout Candidiasis of breast Hypertension Tobacco abuse Acute appendicitis with generalized peritonitis Thickened endometrium Surgical History History of lumpectomy of left breast (~10/2019) History of left breast biopsy (~10/2019) Hx of appendectomy Family History Mother Diabetes Breast cancer Hypertension Daughter Asthma Pulmonary hypertension Social History Smoking Status: Former smoker alcohol intake: never substance use type: does not use caffeine: Yes what type of physical activity do you participate in: walking frequency: 5-6 times per week shelby/samaritan: Uatsdin seatbelt use: always do you feel safe at home: Yes Intake Vital Signs 07/21/24 13:37 12/22/24 14:10 01/19/25 13:32 Height 5 ft 5 ft 5 ft Weight: 68.549 kg BMI 29.5 BP 124/76 H Blood Pressure Location Lt brachial Position Sitting Respiration 18 Pulse 101 H Pulse Source Monitor Temp 98.9 F Temperature Source Temporal Artery Pulse Oximetry (%) 99 Oxygen Delivery Method room air Intake Is patient in pain?: Yes (left sided(pulled muscle from coughing)) Pain scale (1-10): 3 Allergies No Known Allergies Allergy (Verified 01/19/25 13:34) Medications ?Medication ?Instructions ?Recorded ?Confirmed ?Type dupilumab [Dupixent Syringe] 2 ml subcut UD 10/13/19 0 01/19/25 History melatonin 10 mg sublingual tablet 10 mg PO QHS sleep 0 10/27/19 01/19/25 History calcium 500 mg-vitamin D3 1,000 1 ea PO DAILY 10/13/20 01/19/25 History unit-vitamin K 40 mcg chewable tablet potassium chloride 20 mEq 40 meq (2 x 20 mEq) PO DAILY 5 01/24/22 01/19/25 Rx tablet,extended release days #10 tabs lisinopril 10 1 tab PO DAILY 09/18/2201/10 History mg-hydrochlorothiazide 12.5 mg tablet mecobalamin (vitamin B12) 2,500 2,500 mcg PO DAILY 03/0301/19/25 History mcg chewable tablet anastrozole 1 mg tablet 1 mg PO DAILY #90 TABLETS 01/19/25 Rx Have you fallen in the past year?: No Central Venous Access Central Venous Access: No Laboratory Tests 01/14/24 01/21/24 07/14/24 14:07 15:02 13:38 WBC 131.9 H* 116.7 H* 133.7 H* Hgb 10.9 L 11.9 L 11.0 L Hct 35.0 L 37.9 Plt Count 286 272 262 Absolute Lymphs (auto) 121.98 H 107.60 H 123.61 H ESR Sodium 135 L 133 L Potassium 4.2 4.2 Chloride 101 99 Carbon Dioxide 28.0 28.0 BUN 19 H 18 Creatinine 0.90 0.80 Glucose 159 H 120 H Calcium 9.4 9.5 Phosphorus 3.4 Magnesium 2.1 Iron 35 L 35 L TIBC 275 274 Iron Saturation 12.7 L 12.8 L Ferritin 189 174 Total Bilirubin 0.30 0.30 GGT 19 AST 13 L 14 L ALT 15 18 Alkaline Phosphatase 102 99 Lactate Dehydrogenase 106 104 C-React Prot Ext Range 75.50 H Total Protein 7.8 8.4 H 7.9 Total Protein (PEP) 7.1 Albumin 2.6 L 2.9 L 2.7 L Globulin 4.1 H 5.5 H 5.2 H Vitamin B12 700 Folate 30.30 IgG 686 IgA IgM 1926 H TARA M-Erik 1.4 H Free [place] LC, Quant 48.8 H Free Lambda LC, Quant 15.4 Free [place]/Lambda Ratio 3.17 H 01/05/25 14:17 WBC 160.7 H* Hgb 10.8 L Hct 33.7 L Plt Count 278 Absolute Lymphs (auto) 149.59 H ESR 95 H Sodium 129 L Potassium 4.5 Chloride 93 L Carbon Dioxide 24.0 BUN 16 Creatinine 0.67 L Glucose Calcium 9.4 Phosphorus 3.4 Magnesium 1.9 Iron 28 L TIBC Iron Saturation 12.0 L Ferritin 202 Total Bilirubin 0.27 GGT AST 18 ALT 9 Alkaline Phosphatase 103 Lactate Dehydrogenase 112 C-React Prot Ext Range 71.90 H Total Protein 7.5 Total Protein (PEP) 6.9 Albumin 3.4 Globulin 4.0 H Vitamin B12 Folate IgG 577 L IgA 66 IgM 2002 H TARA M-Erik 1.4 H Free [place] LC, Quant 50.3 H Free Lambda LC, Quant 14.8 Free [place]/Lambda Ratio 3.40 H Exam Physical Exam Narrative ECOG 0 Const alert, oriented x3 and no apparent distress General Appearance: cooperative and comfortable Nutritional Appearance: obese HEENT normocephalic Head and Scalp: normal to inspection Face and Sinus: normal facial exam Mouth: oral and palatal mucosa normal Eyes conjunctivae normal and no scleral icterus Neck no lymphadenopathy, supple and no JVD Lymph Lymphatic: no lymphadenopathy noted Chest Chest: symmetrical chest wall rise Resp clear to auscultation bilaterally Cardio Jugular Venous Distention: Negative for JVD GI soft to palpation, non-tender and non-distended; Negative for hepatosplenomegaly no CVA tenderness Back/Spine no thoracic nor lumbar tenderness Extremity no clubbing, cyanosis or edema Skin no rashes or lesions noted Neuro oriented x3, CN's II-XII intact bilaterally, moves all extremities and no focal motor deficits Coordination / Balance: [id number] test normal Speech: speech normal Gait (Neuro): normal gait Psych Appearance: grossly normal Coding Level of Care Code Off vis,est,level 4 Exam Problem Focused Diagnoses CLL (chronic lymphocytic leukemia) C91.10 Malignant neoplasm of upper-outer quadrant of left breast in female, estrogen receptor positive C50.412; Z17.0 Breast location: upper outer quadrant of breast Estrogen receptor status: positive 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 Asymptomatic. No indication for therapy. Plan: To continue observation. Re-evaluate in 6 months. (2) Cancer of left female breast : Status: Chronic Qualifiers: Breast location: upper outer quadrant of breast Estrogen receptor status: positive Qualified Code(s): C50.412 - Malignant neoplasm of upper-outerquadrant of left female breast; Z17.0 - Estrogen receptor positive status [ER+] Comment: No evidence of disease clinically. Has stopped Anastrozole last month. Has taken it for 5 yrs. Plan: To do observation. Check Tumor markers. (3) 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: Status: Chronic Comment: M-spike is stable on 01/14/2024 Plan: To continue monitoring M-spike and IgM level. (4) History of right breast cancer: Status: Chronic Plan: To continue observation (5) Positive Jordan test: Status: Chronic Comment: No clinical hemolysis Plan: To continue observation. (6) Osteopenia: Status: Chronic Qualifiers: Osteopenia location: lumbar spine Qualified Code(s): M85.88 - Other specified disorders of bone density and structure, other site Plan: To continue Vitamin D and Calcium. (7) Anemia: Status: Acute Qualifiers: Anemia type: unspecified type Qualified Code(s): D64.9 - Anemia, unspecified Comment: Hgb is stable, FOBT is negative. Iron level and iron sat are still low. Has stopped Iron because it makes her sick. Plan: To obtain Pre-authorization and do IV replacement.. Orders: Referrals Prior Authorization Referral - ONC/HEM D64.9 - Anemia, unspecified Plan Details Follow Up: 3 Months Clinical Quality Measures Falls Risk Screening/Assistive Devices Have you fallen in the past year?: No 01/19/25 1411 <Electronically signed by Jae Souza> Date _ Jae Clarke MD Cosigner Signature: Date (if applicable) CC: Dr. Link Carroll MD ~ [facility] Work Phone: 1(260) 429-881905-13-2025 Evaluation note* Diagnosis Onset Date Resolution Status Admit Date Cancer of left female breast chronic December 22, 2024 1:50pm Encounter for education acute M ay 2024 2:12pm Cancer of left female breast chronic January 05, 2025 2:12pm History of right breast cancer chron ic January 05, 2025 2:12pm Leukocytosis chronic January 05 2:12pm Osteopenia chronic January 05, 2025 2:12pm Anemia acute January 19 1:24pm Cancer of left female breast chronic January 19, 2025 1:24pm CLL (chronic lymphocytic leukemia) c hronic January 19, 2025 1:24pm History of right breast cancer chron ic January 19, 2025 1:24pm 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 chr onic January 19, 2025 1:24pm Osteopenia chronic January 19 1:24pm Positive Jordan test chronic January 19, 2025 1:24pm [facility] Work Phone: 1(263) 746-980405-13-2025 Evaluation note* Diagnosis Onset Date Resolution Status Admit Date Cancer of left female breast chronic December 22, 2024 1:50pm Anemia acute January 19 1:24pm Cancer of left female breast chronic January 19, 2025 1:24pm CLL (chronic lymphocytic leukemia) c hronic January 19, 2025 1:24pm History of right breast cancer chron ic January 19, 2025 1:24pm 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 chr onic January 19, 2025 1:24pm Osteopenia chronic January 19 1:24pm Positive Jordan test chronic January 19, 2025 1:24pm Encounter for education acute J une 2024 1:00pm Cancer of left female breast chronic January 26, 2025 1:00pm History of right breast cancer chron ic January 26, 2025 1:00pm Leukocytosis chronic January 26, 2 025 1:00pm Osteopenia chronic January 26 1:00pm [facility] Work Phone: 1(451) 884-226612-03-2024 Evaluation note* Diagnosis Onset Date Resolution Status Admit Date Encounter for education acute D ec2023 1:20pm Cancer of left female breast chronic July 14, 2024 1:20pm History of right breast cancer chron ic July 14, 2024 1:20pm Leukocytosis chronic July 1:20pm Osteopenia chronic July 14, 2024 1:20pm Anemia acute July 21, 2024 1:24pm Cancer of left female breast chronic July 21, 2024 1:24pm CLL (chronic lymphocytic leukemia) chronic July 21, 2 024 1:24pm History of right breast cancer chron ic July 21, 2024 1:24pm 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 chr onic July 21, 2024 1:24pm Osteopenia chronic July 21, 2024 1:24pm Positive Jordan test chronic Dece mb2023 1:24pm [facility] Work Phone: [phone]) 577-625604-07-2020 Hospital Discharge instructionsAmbulatory Orders* ONC: Genetic Counseling Time Frame: 11/17/19, Location: None Selected * ONC Referral: Radiation Oncology Time Frame: 12/01/19, Location: None Selected [facility] Work Phone: Chief complaint+Reason for visit Narrative* Chief Complaint ONC/HEM 4 MO - LABS 1 WK PRIOR SCREENING Reason for Visit Encounter for educat ion Cancer of left female breast History of right breast cancer Leukocytosis Osteopenia Cancer of left female breast CLL (chronic lymphocytic leukemia) History of right breast cancer 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 Osteopenia Positive Jordan test [facility] Work Phone: Evaluation note* Diagnosis Onset Date Resolution Status Cancer of left female breast acute History of right breast cancer chronic Leukocytosis chronic Osteopenia chronic Cancer of left female breast acute Cancer of left female breast acute History of right breast cancer chronic Leukocytosis chronic Osteopenia chronic Cancer of left female breast acute Encounter for education acut e History of right breast cancer chronic Leukocytosis chronic Osteopenia chronic [facility] Work Phone: Evaluation note* Diagnosis Onset Date Resolution Status Cancer of left female breast acute History of right breast cancer chronic Leukocytosis chronic Osteopenia chronic Cancer of left female breast acute Lymphoma acute Positive Jordan test acute CLL (chronic lymphocytic leukemia) chronic History of right breast cancer chronic 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 chronic Osteopenia chronic Cancer of left female breast acute Encounter for education acut e History of right breast cancer chronic Leukocytosis chronic Osteopenia chronic [facility] Work Phone: Evaluation note* Diagnosis Onset Date Resolution Status Cancer of left female breast chronic Cancer of left female breast chronic CLL (chronic lymphocytic leukemia) chronic History of right breast cancer chronic 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 chronic Osteopenia chronic Positive Jordan test chronic Encounter for education acut e Cancer of left female breast chronic History of right breast cancer chronic Leukocytosis chronic Osteopenia chronic [facility] Work Phone: Evaluation note* Diagnosis Onset Date Resolution Status Encounter for education acut e Cancer of left female breast chronic History of right breast cancer chronic Leukocytosis chronic Osteopenia chronic Cancer of left female breast chronic CLL (chronic lymphocytic leukemia) chronic History of right breast cancer chronic 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 chronic Osteopenia chronic Positive Jordan test chronic [facility] Work Phone: Evaluation note* Diagnosis Onset Date Resolution Status Cancer of left female breast chronic CLL (chronic lymphocytic leukemia) chronic History of right breast cancer chronic 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 chronic Osteopenia chronic Positive Jordan test chronic Contact with or suspected ex posure to other viral communicable disease acute Encounter for education acut e Cancer of left female breast chronic History of right breast cancer chronic Leukocytosis chronic Osteopenia chronic [facility] Work Phone: Evaluation noteNo assessment information available [facility] Work Phone: Hospital Discharge instructionsAmbulatory Orders* Prior Authorization Referral - ONC/HEM Location: None Selected [facility] Work Phone: Reason for referral (narrative)No reason for referral information availableWKettering [facility] Work Phone: Chief Complaint and Reason for Visit Chief Complaint 3 MO - NO LABS FOLLOWUP SCREENING 3 MO - DOING LABS WITH MAMMO - REVIEW MAMMO ONC/HEM Reason for Visit Cancer of left femal e breast History of right breast cancer Leukocytosis Osteopenia Cancer of left female breast Cancer of left female breast History of right breast cancer Leukocytosis Osteopenia Cancer of left female breast Encounter for education History of right breast cancer Leukocytosis Osteopenia Chief Complaint SCREENING 3 MO - DOING LABS WITH MAMMO - REVIEW MAMMO REVIEW PET SCAN - LABS ONC/HEM N/V Reason for Visit Cancer of left femal e breast History of right breast cancer Leukocytosis Osteopenia Cancer of left female breast Lymphoma Positive Jordan test CLL (chronic lymphocytic leukemia) History of right breast cancer 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 Osteopenia Cancer of left female breast Encounter for education History of right breast cancer Leukocytosis Osteopenia Chief Complaint 6 month f/u - breast 4 MO - LABS ONC/HEM H/O BREAST CANCER Reason for Visit Cancer of left femal e breast Cancer of left female breast CLL (chronic lymphocytic leukemia) History of right breast cancer 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 Osteopenia Positive Jordan test Encounter for education Cancer of left female breast History of right breast cancer Leukocytosis Osteopenia Chief Complaint 6 MO - LABS NO SENSE OF TASTE/FATIGUE ONC/HEM Reason for Visit Cancer of left femal e breast CLL (chronic lymphocytic leukemia) History of right breast cancer 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 Osteopenia Positive Jordan test Contact with or suspected exposure to other viral communicable disease Encounter for education Cancer of left female breast History of right breast cancer Leukocytosis Osteopenia Chief Complaint Admit Date ONC/HEM July 14, 2024 1 :20pm 6MO LABS PRIOR July 21, 2024 1:24pm Reason for Visit Admit Date Encounter for education July 14 1:20pm Cancer of left female breast July 1:20pm History of right breast cancer July 14, 2024 1:20pm Leukocytosis July 14, 2024 1 :20pm Osteopenia July 14, 2024 1 :20pm Anemia July 21, 2024 1:24pm Cancer of left female breast July 212023 1:24pm CLL (chronic lymphocytic leukemia) Decem evette 2023 1:24pm History of right breast cancer July 21, 2024 1:24pm 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 Decembe r 2023 1:24pm Osteopenia July 21, 2024 1:24pm Positive Jordan test July 21, 2024 1:24pm Chief Complaint Admit Date SCREENING November 16, 2024 12:3 5pm Chief Complaint Admit Date SCREENING November 16, 2024 12:3 5pm 6 MONTH BREAST, REVIEW MAMMO December 22, 2 025 1:50pm Chief Complaint Admit Date SCREENING November 16, 2024 12:3 5pm 6 MONTH BREAST, REVIEW MAMMO December 22, 2 025 1:50pm ONC/HEM January 05, 2025 2:12p m 6MO LABS PRIOR January 19, 2025 1:24 pm Reason for Visit Admit Date Cancer of left female breast December 22, 2 025 1:50pm Encounter for education January 05, 2025 2 :12pm Cancer of left female breast January 05, 2 025 2:12pm History of right breast cancer January 05, 2025 2:12pm Leukocytosis January 05, 2025 2:12p m Osteopenia January 05, 2025 2:12p m Anemia January 19, 2025 1:24 pm Cancer of left female breast January 19, 2025 1:24pm CLL (chronic lymphocytic leukemia) January 19, 2025 1:24pm History of right breast cancer January 1:24pm 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 January 192024 1:24pm Osteopenia January 19, 2025 1:24 pm Positive Jordan test January 19, 2025 1:2 4pm Chief Complaint Admit Date SCREENING November 16, 2024 12:3 5pm 6 MONTH BREAST, REVIEW MAMMO December 22, 2 025 1:50pm 6MO LABS PRIOR January 19, 2025 1:24 pm ONC/HEM January 26, 2025 1:00 pm Reason for Visit Admit Date Cancer of left female breast December 22, 2 025 1:50pm Anemia January 19, 2025 1:24 pm Cancer of left female breast January 19, 2025 1:24pm CLL (chronic lymphocytic leukemia) January 19, 2025 1:24pm History of right breast cancer January 1:24pm 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 January 192024 1:24pm Osteopenia January 19, 2025 1:24 pm Positive Jordan test January 19, 2025 1:2 4pm Encounter for education January 26, 2025 1:00pm Cancer of left female breast January 26, 2025 1:00pm History of right breast cancer January 1:00pm Leukocytosis January 26, 2025 1:00 pm Osteopenia January 26, 2025 1:00 pm Family History Relationship Condition Age at Onset Recorded Date/T nelson mother Diabetes mellitus Unknown Malignant neoplasm of breast Unknown Hypertension Unknown daughter Asthma Unknown Pulmonary hypertension Unknown Advance Directives Advance Directive Response Recorded Date/ Time Advance Directives No September 06, 2015 12:55am Living Will No October 27, 2019 9:00am Power of Income Tax Manager No October 26 9:00am Advance Directive Response Recorded Date/ Time Advance Directives No September 06, 2015 12:55am Living Will No January 24, 2022 2:21pm Power of Income Tax Manager No January 24 2:21pm Advance Directive Response Recorded Date/ Time Advance Directives No October 15 9:29am Living Will No January 24, 2022 2:21pm Power of Income Tax Manager No January 24 2:21pm Advance Directive Response Recorded Date/ Time Advance Directives No October 15 8:29am Living Will No January 24, 2022 1:21pm Power of Income Tax Manager No January 24 1:21pm Advance Directive Response Recorded Date/ Time Living Will No January 24, 2022 2:21pm Do you have a Healthcare Power of Income Tax Manager? No January 24, 2022 2:21pm Living Will No October 27, 2019 9:00am Do you have a Healthcare Power of Income Tax Manager? No October 27, 2019 9:00am Advance Directives No October 15 9:29am Advance Directive Response Recorded Date/ Time Living Will No January 24, 2022 2:21pm Do you have a Healthcare Power of Income Tax Manager? No January 24, 2022 2:21pm Advance Directives No October 15 9:29am Summary Purpose Additional Source Comments Goals (unrecognized section and content) Goals may be documented in a n alternate sectionGoals may be documented in an alternate sectionGoals may be documented in an alternate sectionGoals may be documented in an alternate sectionGoals may be documented in an alternate sectionGoals may be documented in an alternate sectionGoals may be documented in an alternate sectionGoals may be documented in an alternate sectionGoals may be documented in an alternate sectionGoals may be documented in an alternate section Care Teams (unrecognized sec tion and content) Team Status: Active Member Role Status Dates Dr. Link Carroll MD Family Provider Active Dr. Link Carroll MD Primary Care Provider Active Team Status: Inactive Member Role Status Dates Dr. Link Carroll MD Primary Care Provider, Referring Provider Active Dr. Mil Hampton DO Attending Provider Active Team Status: Inactive Member Role Status Dates Dr. Link Carroll MD Primary Care Provider, Referring Provider Active Dr. Antony Brothers MD Attending Provider Active Team Status: Active Member Role Status Dates Dr. Link Carroll MD Primary Care Provider Active Dr. Antony Brothers MD Attending Provider Active Dr. Anil Howard MD Referring Provider Active Dr. Mil Hampton DO Active Team Status: Inactive Member Role Status Dates Dr. Link Carroll MD Primary Care Provider Active Dr. Mil Hampton DO Attending Provider Active Team Status: Inactive Member Role Status Dates Dr. Link Carroll MD Primary Care Provider, Referring Provider Active Dr. Jae Clarke MD Attending Provider Active Team Status: Active Member Role Status Dates Dr. Link Carroll MD Primary Care Provider Active Dr. Antony Brothers MD Attending Provider Active Dr. Anil Howard MD Referring Provider Active Team Status: Inactive Member Role Status Dates Dr. Link Carroll MD Primary Care Provider, Attending Provider Active Team Status: Inactive Member Role Status Dates Dr. Link Carroll MD Primary Care Provider Active Dr. Jae Clarke MD Attending Provider, Referring Pro vider Active Team Status: Inactive Member Role Status Dates Dr. Link Carroll MD Primary Care Provider, Referring Provider Active Anam [place], [place] Attending Provider Active Team Status: Active Member Role Status Dates Dr. Link Carroll MD Primary Care Provider Active Start: July 14, 2024 Dr. Antony Brothers MD Attending Provider Active Start: July 14, 2024 Dr. Anil Howard MD Referring Provider Active Start: July 14, 2024 Team Status: Inactive Member Role Status Dates Dr. Link Carroll MD Primary Care Provider Active Start: July 21, 2024 End: July 21, 2024 Dr. Link Carroll MD Referring Provider Active Start: July 21, 2024 End: July 21, 2024 Dr. Jae Clarke MD Attending Provider Active S tart: July 21, 2024 End: July 21, 2024 Team Status: Inactive Member Role Status Dates Dr. Link Craroll MD Primary Care Provider Active Start: October 26, 2024 End: October 26, 2024 Dr. Link Carroll MD Attending Provider Active Start: October 26, 2024 End: October 26, 2024 Dr. Link Carroll MD Referring Provider Active Start: October 26, 2024 End: October 26, 2024 Team Status: Active Member Role Status Dates Dr. Link Carroll MD Primary Care Provider Active Team Status: Inactive Member Role Status Dates Dr. Link Carroll MD Primary Care Provider Active Start: November 16, 2024 End: November 16, 2024 Dr. Mil Hampton DO Attending Provider Active Start: November 16, 2024 End: November 16, 2024 Dr. Mil Hampton DO Referring Provider Active Start: November 16, 2024 End: November 16, 2024 Team Status: Inactive Member Role Status Dates Dr. Link Carroll MD Primary Care Provider Active Start: December 22, 2024 End: December 22, 2024 Dr. Link Carroll MD Referring Provider Active Start: December 22, 2024 End: December 22, 2024 Dr. Mil Hampton DO Attending Provider Active Start: December 22, 2024 End: December 22, 2024 Team Status: Active Member Role Status Dates Dr. Link Carroll MD Primary Care Provider Active Start: January 05, 2025 Dr. Antony Brothers MD Attending Provider Active Start: January 05, 2025 Dr. Anil Howard MD Referring Provider Active Start: January 05, 2025 Team Status: Inactive Member Role Status Dates Dr. Link Carroll MD Primary Care Provider Active Start: January 19, 2025 End: January 19, 2025 Dr. Link Carroll MD Referring Provider Active Start: January 19, 2025 End: January 19, 2025 Dr. Jae Clarke MD Attending Provider Active S tart: January 19, 2025 End: January 19, 2025 Team Status: Inactive Member Role Status Dates Dr. Link Carroll MD Primary Care Provider Active Start: January 21, 2025 End: January 21, 2025 Dr. Link Carroll MD Attending Provider Active Start: January 21, 2025 End: January 21, 2025 Dr. Link Carroll MD Referring Provider Active Start: January 21, 2025 End: January 21, 2025 Team Status: Active Member Role Status Dates Dr. Link Carroll MD Primary Care Provider Active Start: January 26, 2025 Dr. Antony Brothers MD Attending Provider Active Start: January 26, 2025 Dr. Anil Howard MD Referring Provider Active Start: January 26, 2025 INFORMATION SOURCE (unrecogn ized section and content) DATE CREATED AUTHOR 01/24/2025 [facility] FOR RECORDS PERTAINING TO PATIENTS WHO ARE OR HAVE BEEN ENROLLED IN A CHEMICAL DEPENDENCY/SUBSTANCEABUSE PROGRAM, SOME INFORMATION MAY BE OMITTED. This clinical summary was aggregated from multiple sources. Caution should be exercised in using it in the provision of clinical care. This summary normalizes information from multiple sources, and as a consequence, information in this document may materially change the coding, format and clinical context of patient data. In addition, data may be omitted in some cases. CLINICAL DECISIONS SHOULD BE BASED ON THE PRIMARY CLINICAL RECORDS. [employer] provides no warranty or guarantee of the accuracy or completeness of information in this document.
--- NOTE | 2025-01-28 18:58 | CT_ITS ---
PROCEDURE: CTA CHEST W/WO CONTRAST 01/28/2025 REASON FOR EXAM: SHORTNESS OF BREATH, LEFT RIB PAIN TECHNIQUE: CTA CHEST W/WO CONTRAST Multiplanar Sagittal and Coronal images were obtained. CONTRAST: Isovue 370 VOLUME: 100 mL One or more dose reduction techniques were used (e.g., Automated exposure control, adjustment of the mA and/or kV according to patient size, use of iterative reconstruction technique). RADIATION DOSE SUMMARY: DLP: 257.53 MGycm . COMPARISON: None. FINDINGS: The peripheral soft tissues are unremarkable. Degenerative changes of the spine. Left thyroid 1.0 cm nodule. The esophagus is normal in caliber. Splenomegaly. Mild atherosclerosis of a normal caliber thoracic aorta. No mediastinal lymphadenopathy. The heart is normal in size. No pulmonary artery filling defects. Mild scattered pulmonary scarring. CT/CTA Chest W/WO Contrast IMPRESSION: No pulmonary embolism. No acute chest abnormality. Reading Location: [place] [address]
--- NOTE | 2025-01-28 18:58 | EKG12_ITS ---
Test Reason : DYSRHYTHMIA Blood Pressure : */* mmHG Vent. Rate : 103 BPM Atrial Rate : 103 BPM P-R Int : 156 ms QRS Dur : 84 ms QT Int : 344 ms P-R-T Axes : 73 29 67 degrees QTcB Int : 450 ms Sinus tachycardia Otherwise normal ECG Confirmed by Aristides Santiago ([id number]), editor producer CONCHITA REYES ([id number]) on 02/02/2025 11:33:53 AM Referred By: Confirmed By: Aristides Santiago
--- NOTE | 2025-01-28 19:10 | EDS_ITS ---
HPI History of Present Illness Chief Complaint: Flank Pain Narrative Narrative: Chief complaint and HPI: Left lateral rib pain. 74-year-old female with medical history of CLL, HTN, previous bilateral breast cancer presents for evaluation of left lateral rib pain. Patient states that she has bad allergies in the summer which leads to coughing. She states that she had a coughing fit approximately 2 weeks ago in which she shortly developed left lateral rib pain. She saw her primary care physician in the office who ordered x-ray and states that was negative. Patient has also been to an urgent care for the same complaint. She is currently on Flexeril, meloxicam, and benzonatate. She states her pain has not improved which is why she presents. She states the pain is constant but worse when she takes a deep breath. She denies any fever, chills, chest pain, abdominal pain, nausea, vomiting, dysuria, back pain. Review of systems: See HPI Medications: As listed on the chart Allergies: As listed on the chart PFSH: Per chart Vital signs: As listed on the chart. Reviewed. Physical exam: Gen: A&O x3, NAD Head: Normocephalic, atraumatic Eyes: No sclera icterus, conjunctiva clear ENT: Moist mucous membranes Neck: Trachea midline, No JVD CV: RRR, no murmurs, patient has tenderness to palpation of the left lateral ribs mostly located around the left breast-no crepitus/warmth/erythema/ecchymosis/rash Resp: Lungs CTA BL, no w/r/c GI: Abd soft, non-distended, non-tender, no r/r/g : No CVA tenderness Musc: Full ROM, no deformity Skin: Warm, dry Neuro: Alert, oriented, grossly intact, sensation intact Psych: Cooperative, appropriate mood and affect [facility] Medical History Pneumonia CLL (chronic lymphocytic leukemia) 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 Breast cancer Gout Candidiasis of breast Hypertension Tobacco abuse Acute appendicitis with generalized peritonitis Thickened endometrium Home Medications ?Medication ?Instructions ?Recorded ?Last Taken ?Type dupilumab [Dupixent Syringe] 2 ml subcut UD 10/13/19 0 01/25/25 History calcium 500 mg-vitamin D3 1,000 1 ea PO DAILY 10/13/20 01/27/25 History unit-vitamin K 40 mcg chewable tablet lisinopril 10 1 tab PO DAILY 09/18/2201/10 History mg-hydrochlorothiazide 12.5 mg tablet mecobalamin (vitamin B12) 2,500 2,500 mcg PO DAILY 03/0301/27/25 History mcg chewable tablet acetaminophen 500 mg capsule 1,000 mg PO Q6H PRN fever or pain 01/28/25 01/28/25 History benzonatate 200 mg capsule 200 mg PO TID PRN cough 01/28/25 History cyclobenzaprine 5 mg tablet 5 mg PO TID low back pain 01/28/25 01/28/25 History doxycycline hyclate 100 mg tablet 100 mg PO BID Unknown History meloxicam 15 mg tablet 15 mg PO DAILY 01/28/2501/10 History oxycodone-acetaminophen 5 mg-325 1 tab PO Q8H PRN pain 2 days #6 01/28/25 Unknown Rx mg tablet (Percocet) tabs Allergy/AdvReac Type Severity Reaction Status Date / Time No Known Allergies Allergy Verified 01/28/25 18:18 Family History Mother Diabetes Breast cancer Hypertension Daughter Asthma Pulmonary hypertension Surgical History History of lumpectomy of left breast (~10/2019) History of left breast biopsy (~10/2019) Hx of appendectomy Social History Smoking Status: Former smoker alcohol intake: never substance use type: does not use caffeine: Yes what type of physical activity do you participate in: walking frequency: 5-6 times per week shelby/confucianism: Mormonism seatbelt use: always do you feel safe at home: Yes EXAM Physical Exam Const Vital Signs: 01/28/25 18:18 01/28/25 19:17 01/28/25 19:30 Temperature 97.7 F L Temperature Source Oral Pulse Rate 113 H 96 103 H Respiratory Rate 18 21 H 32 H Blood Pressure 130/74 H Blood Pressure Mean 92 Pulse Ox 98 Oxygen Delivery Method Room Air 01/28/25 19:45 01/28/25 20:00 01/28/25 20:15 Temperature Temperature Source Pulse Rate 100 101 H 98 Respiratory Rate 27 H 28 H 27 H Blood Pressure Blood Pressure Mean Pulse Ox Oxygen Delivery Method 01/28/25 20:30 01/28/25 20:45 01/28/25 22:00 Temperature Temperature Source Pulse Rate 98 104 H 104 H Respiratory Rate 22 H 17 18 Blood Pressure 161/73 H Blood Pressure Mean 102 Pulse Ox 99 98 Oxygen Delivery Method 01/28/25 23:25 Temperature 97.8 F Temperature Source Pulse Rate 81 Respiratory Rate 16 Blood Pressure 148/75 H Blood Pressure Mean 99 Pulse Ox 97 Oxygen Delivery Method MDM MDM MDM Narrative Medical decision making narrative: 74-year-old female with medical history of CLL, HTN, previous bilateral breast cancer presents for evaluation of left lateral rib pain. Ongoing for the past 2 weeks. Patient was seen in urgent care as well as PCP for same complaint. Currently on Flexeril, meloxicam, and benzonatate with little improvement. Triage note states that the patient is having flank pain, this is incorrect. She is having left lateral rib pain. On chart review, patient had a x-ray of the ribs performed on 01/21/2025. No evidence of acute abnormality. No rib fracture. Patient is constant but worse with inspiration. On presentation, patient is mildly hypertensive and tachycardic. Her tachycardia may be secondary to pain however cannot rule out other etiology for her tachycardia. Toradol ordered for pain. Differential diagnosis includes but is not limited to rib contusion, rib fracture, pneumonia, PE, ACS, myofascial spasm. Given patient's tachycardia, pain with inspiration, as well as history of CLL, makes her a higher candidate for PE. Given that she had a chest x-ray that did not show fracture we will get CTA that will assess for PE as well as better as sessment for rib fracture. EKG reviewed see below. CBC with leukocytosis of 165. Patient has history of CLL, on chart review her WBC count in December was 160. Patient has baseline anemia with a hemoglobin at 10.6. Platelet count unremarkable. BMP without electrolyte abnormality or LEANNE. Troponin unremarkable x 2. BNP mildly elevated at 1002. Patient not fluid overloaded on physical exam or CTA. CTA negative for PE. No rib fracture. She does have a left thyroid nodule that we will need further worked up outpatient. She has splenomegaly. Splenomegaly is likely secondary to her CLL. On reevaluation, patient still endorsing pain. IV morphine ordered. Patient states she has no history of splenomegaly. On chart review, her last CT abdomen and pelvis in our system is from 2015. Had a normal spleen at that time. At this point in time, no clear etiology for patient's pain. May be secondary to rib contusion. Although patient is not having any abdominal pain on physical exam, I cannot officially rule out splenomegaly as a cause of her left-sided pain. I did recommend CT abdomen pelvis for better evaluation however patient declined. She was made aware that I cannot further evaluate her spleen as a source of the pain without imaging. She understood this along with her family but states she would rather follow-up with her PCP outpatient. On reevaluation after morphine, sadiq hunter's pain has improved. Her vitals are stable without tachycardia but mild hypertension. Patient is stable to discharge home. Will send her home with a couple pills of Percocet for severe pain. Recommend following up with PCP. Return precautions explained. She confirmed understanding of the plan. Patient stable to discharge home. EKG: Interpreted by me/EM physician: EKG shows sinus tachycardia without any acute ischemic changes. Heart rate 103. Impression: 1. Left-sided rib pain 2. History of CLL 3. Splenomegaly 4. Thyroid nodule 5. Chronic anemia Lab Data Labs: Laboratory Results - last 24 hr 01/28/25 01/28/25 19:12 21:17 WBC 165.1 H* RBC 3.75 L Hgb 10.6 L Hct 34.3 L MCV 91.5 MCH 28.3 MCHC 30.9 L RDW Std Deviation 48.9 H RDW Coeff of Carissa 14.9 H Plt Count 376 MPV 10.5 Immature Gran % (Auto) [employer] Neut % (Auto) [employer] Lymph % (Auto) [employer]DER [place] % (Auto) [employer] W[employer]DER Eos % (Auto) [employer] W[employer]DER Baso % (Auto) [employer] W[employer]DER Absolute Neuts (auto) 4.9 Absolute Lymphs (auto) 156.80 H Total Counted 100 Neutrophils % (Manual) 3 L Lymphocytes % (Manual) 95 H* Monocytes % (Manual) 2 Nucleated RBC % 0 Differential Comment MANUAL DIFF Diff Path Review May foll Atypical Lymphocytes 2+ Platelet Estimate ADEQUATE Sodium 138 Potassium 4.0 Chloride 101 Carbon Dioxide 24.6 Anion Gap 13 BUN 16 Creatinine 0.85 Estim Creat Clear Calc 51.16 Est GFR (MDRD) Non-Af 72 BUN/Creatinine Ratio 18.2 Glucose 111 H Calcium 9.8 Troponin T High Sens 8 Troponin T Hi Sens 2 Hr 9 NT pro BNP II 1002 H Radiography Diagnostic Testing: Clinical Impression(s) from Imaging Studies Chest CTA 01/28/25 18:58 IMPRESSION: No pulmonary embolism. No acute chest abnormality. Reading Location: [place] [id number] Discharge Plan Triage Chief Complaint: Flank Pain ED Provider: Jose Montiel Dx/Rx/DC Orders Clinical Impression: Rib pain on left side, CLL (chronic lymphocytic leukemia) Instructions: ED Chest Pain, Uncertain Cause Prescriptions: New oxycodone-acetaminophen [Percocet] 5-325 mg tablet 1 tab PO Q8H PRN (Reason: pain) 2 Days Qty: 6 0RF No Action dupilumab [Dupixent Syringe] 2 ml subcut UD Patient Comments: on hold. every other week Rx Instructions: TWICE A MONTH (EVERY 2 WEEKS) lisinopril-hydrochlorothiazide 10-12.5 mg tablet 1 tab PO DAILY mecobalamin (vitamin B12) 2,500 mcg tablet,chewable 2,500 mcg PO DAILY calcium-vitamin D3-vitamin K 1 EACH tablet,chewable 1 ea PO DAILY benzonatate 200 mg capsule 200 mg PO TID PRN meloxicam 15 mg tablet 15 mg PO DAILY doxycycline hyclate 100 mg tablet 100 mg PO BID cyclobenzaprine 5 mg tablet 5 mg PO TID acetaminophen 500 mg capsule 1,000 mg PO Q6H PRN (Reason: fever or pain) Primary Care Provider: Link Carroll Referrals: Link Carroll MD [Primary Care Provider] - 3-5 Days Activity Restrictions/Additional Instructions: Follow-up with your primary care physician. Your CT of your chest showed a left thyroid nodule, this needs to be worked up outpatient. Your CT chest also showed that your spleen is enlarged. You did not want to get a CT abdomen/pelvis here in the emergency department, I recommend you following up with your physician to have one performed. Without CT abdomen pelvis, I cannot say that your enlarged spleen is not a source of your pain. Return back to the ED if symptoms change or worsen. Narcotics for only severe pain. There is Tylenol and narcotics make sure that you are monitoring your Tylenol usage. Narcotics can increase falls, confusion. Do not drive or operate heavy machinery while taking them. Print Language: Liberian Disposition Disposition: Home, Self Care Discharge Date/Time: 01/28/25 23:35
[2025-01-28] MEDS: Ketorolac 15 MG/ML Vial IV (19:12)
[2025-01-28] MEDS: 0.9% Normal Saline (1000mL) 1,000 ML 1000 ML IV (19:13)
[2025-01-28 19:43] LABS: Hematocrit 34.3 % (37-47); Hemoglobin 10.6 g/dL (12.0-15.0); Mean Corp Hgb Conc 30.9 g/dL (32-36); Mean Corpuscular Hgb 28.3 pg (27.0-32.0); Mean Corpuscular Volume 91.5 fL (81-99); Mean Platelet Vol. 10.5 fl (6.2-12.0); NRBC Flagged by Analyzer 0 % (0-5); POSITIVE COUNT YES; POSITIVE DIFFERENTIAL YES; POSITIVE MORPHOLOGY YES; Platelet Count 376 K/mm3 (150-450); RBC Distribution Width CV 14.9 % (11.6-14.6); RBC Distribution Width SD 48.9 fl (35.1-43.9); Red Blood Count 3.75 M/mm3 (4.2-5.4)
[2025-01-28 20:15] LABS: White Blood Count 165.1 K/mm3 (4.4-11.0)
[2025-01-28 20:22] LABS: Differential Indicated SCAN CRITERIA MET
[2025-01-28 20:24] LABS: Scan Smear per Review Criteria MANUAL DIFF
[2025-01-28 20:27] LABS: Anion Gap 13 (5-15); BUN 16 mg/dL (4-19); BUN/Creat Ratio 18.2 RATIO (10-20); Calcium,Total 9.8 mg/dL (7.6-11.0); Carbon Dioxide 24.6 mmol/L (21.0-32.0); Chloride 101 mmol/L (98-108); Creatinine, Serum 0.85 mg/dL (0.70-1.20); EST Glomerular Filtration Rate 72 (>60); Estimated Creatinine Clearance 51.16 ml/min (50-250); Glucose 111 mg/dL (70-99); Pro- Brain NATRIURETIC PEPTIDE 1002 pg/mL (<=900); Sodium Level 138 mmol/L (133-145)
[2025-01-28 20:35] LABS: Neutrophil-Segmented 3 % (47-70); Total Cells Counted 100 (MANUAL DIFF)
[2025-01-28 20:36] LABS: Differential Comment MANUAL DIFF; Lymphocyte 95 % (19-41); Monocyte 2 % (0-10)
[2025-01-28 20:39] LABS: Absolute Neutrophil Count 4.9 X10^3/uL (2.0-7.7)
[2025-01-28 20:40] LABS: Atypical Lymphocyte 2+ %; Pathologist Review May foll; Platelet Estimate ADEQUATE (ADEQ)
[2025-01-28 20:50] LABS: Troponin T High Sensitivity 8 ng/L (<=14)
[2025-01-28 21:44] LABS: Troponin T High Sens 2 HR 9 ng/L (<=14)
[2025-01-28] MEDS: Morphine 4 MG/ML Syringe IV (22:01)
== END 2025-01-28 23:35 | disposition home or self-care (01) ==
PROVIDERS: Emergency Provider Surgery; PCP Family Medicine; Visit Provider Surgery
DX: C91.10 Chronic lymphocytic leukemia of B-cell type not having achieved remission (principal); R07.81 Pleurodynia; I10 Essential (primary) hypertension; D64.9 Anemia, unspecified; E04.1 Nontoxic single thyroid nodule; R16.1 Splenomegaly, not elsewhere classified; Z79.899 Other long term (current) drug therapy; Z87.891 Personal history of nicotine dependence
CPT/HCPCS: 71275; 80048; 83880; 84484; 85025; 93005; 96361; 96374; 96375; 96376; 99283; Q9967; A4216

== ENCOUNTER → 2025-02-03 | Outpatient (CLI) | payer MEDICARE, SELFPAY ==
[2019-12-10 11:08] VITALS: BMI 33.0
--- NOTE | 2025-02-03 12:49 | US_ITS ---
PROCEDURE: THYROID 02/03/2025 REASON FOR EXAM: NODULES OF THE THROID TECHNIQUE: Imaging of the thyroid gland was performed. COMPARISON: Prior CT scan dated January 28, 2025. FINDINGS: Right thyroid lobe size: 4.8 cm x 2.2 cm x 2.2 cm Left thyroid lobe size: 5.3 cm x 1.7 cm 2.5 cm Isthmus: 0.36 cm Background parenchymal echotexture is homogeneous. Nodules: . Lobe: Right lobe, Location: Midpole, Size: 2.1 cm 1.6 cm 1.6 cm, Stability: N/A Composition: Mixed cystic and solid (+1) Echogenicity: Hypoechoic (+2) Margin: Smooth (+0) Shape: Wider than tall (+0) Echogenic Foci: None (+0) TI-RADS: TI-RADS category 3 . Lobe: Left, Location: Inferior pole, Size: 1.4 cm 1.4 cm 1.3 cm, Stability: N/A Composition: Mixed cystic and solid (+1) Echogenicity: Hypoechoic (+2) Margin: Smooth (+0) Shape: Wider than tall (+0) Echogenic Foci: None (+0) TI-RADS: TI-RADS category 3 US/Thyroid IMPRESSION: Dominant nodules in both lobes of the thyroid as described. Biopsy of the comp flex nodule in the right lobe of the thyroid as well as the left lobe of the thyroid recommended. RECOMMENDATION: Based on most suspicious nodule. Nodule size = largest diameter Only evaluate nodule if =>5 mm. Growth > 20% in 2 dimensions = worsening. Follow up to 4 nodules. Recommend biopsy for no more than 2 nodules. Reading Location: [id number]
== END | disposition home or self-care (01) ==
LOC: US 12:46
PROVIDERS: PCP Family Medicine
DX: E04.1 Nontoxic single thyroid nodule (principal)
CPT/HCPCS: 76536

== ENCOUNTER → 2025-02-22 | Outpatient (CLI) | payer MEDICARE, SELFPAY ==
[2019-12-10 11:08] VITALS: BMI 33.0
[2025-02-22 18:22] LABS: Free T3 2.8 pg/mL (2.18-3.98)
== END | disposition home or self-care (01) ==
LOC: MFPLAB 14:23
PROVIDERS: PCP Family Medicine; Referring Provider Family Medicine; Visit Provider Family Medicine
DX: E04.1 Nontoxic single thyroid nodule (principal)
CPT/HCPCS: 36415; 84439; 84443; 84481

== ENCOUNTER → 2025-06-01 | Outpatient (CLI) | payer MEDICARE, SELFPAY ==
[2019-12-10 11:08] VITALS: BMI 33.0
[2025-06-01 14:06] LABS: Hematocrit 31.6 % (37-47); Hemoglobin 9.5 g/dL (12.0-15.0); Immature Granulocytes Count 0.700 X10^3/uL (0.0-0.0); Mean Corp Hgb Conc 30.1 g/dL (32-36); Mean Corpuscular Volume 95.2 fL (81-99); Mean Platelet Vol. 10.9 fl (6.2-12.0); NRBC Flagged by Analyzer 0 % (0-5); POSITIVE COUNT YES; POSITIVE DIFFERENTIAL YES; POSITIVE MORPHOLOGY YES; Platelet Count 270 K/mm3 (150-450); RBC Distribution Width CV 15.4 % (11.6-14.6); RBC Distribution Width SD 52.2 fl (35.1-43.9); Red Blood Count 3.32 M/mm3 (4.2-5.4); White Blood Count 243.6 K/mm3 (4.4-11.0)
[2025-06-01 14:43] LABS: Differential Indicated SCAN CRITERIA MET
[2025-06-01 14:49] LABS: AST(SGOT) 30 U/L (<=31); Alanine Aminotransfer ALT/SGPT 25 U/L (<=34); Albumin, Serum 3.5 g/dL (3.4-4.8); Alkaline Phosphatase 161 U/L (35-104); Anion Gap 12 (5-15); BUN 20 mg/dL (4-19); BUN/Creat Ratio 19.6 RATIO (10-20); Calcium,Total 10.0 mg/dL (7.6-11.0); Carbon Dioxide 24.1 mmol/L (21.0-32.0); Chloride 100 mmol/L (98-108); Ferritin 754 ng/mL (22-378); Globulin 4.3 g/dL (2.2-4.2); Glucose 134 mg/dL (70-99); Iron 33 ug/dL (50-170); Iron Binding Capacity,Unsat 187 ug/dL (228-428); LDH 222 U/L (84-246); Potassium 4.5 mmol/L (3.3-5.1)
[2025-06-01 14:55] LABS: Iron Binding Capacity,Total 220 ug/dL (250-450)
[2025-06-01 22:02] LABS: Xtra Tube EP Lab EXTRA TUBE
[2025-06-04 14:10] LABS: Albumin 2.8 g/dL (2.9-4.4); CA 15-3 31.4 U/mL (0.0-25.0); CA 27.29 45.8 U/mL (0.0-38.6); Carcinoembryonic Antigen 1.4 ng/mL (0.0-4.7); Gamma Globulin 1.9 g/dL (0.4-1.8); Immunoglobulin A 59 mg/dL (64-422); Immunoglobulin G 580 mg/dL (586-1602); Immunoglobulin M 2272 mg/dL (26-217); PROEL- TOTAL PROTEIN 7.1 g/dL (6.0-8.5)
== END | disposition home or self-care (01) ==
LOC: PAVLAB 13:47
PROVIDERS: PCP Family Medicine; Referring Provider Internal Medicine Medical Oncology; Visit Provider Internal Medicine Medical Oncology
DX: C91.10 Chronic lymphocytic leukemia of B-cell type not having achieved remission (principal); C88.00 Waldenstrom macroglobulinemia not having achieved remission; C50.412 Malignant neoplasm of upper-outer quadrant of left female breast; C50.919 Malignant neoplasm of unspecified site of unspecified female breast; D64.9 Anemia, unspecified; Z17.0 Estrogen receptor positive status [ER+]
CPT/HCPCS: 80053; 82378; 82728; 82784; 83540; 83550; 83615; 83883; 84165; 85025; 86300; 86304; 86334

== ENCOUNTER → 2025-07-06 | Outpatient (CLI) | payer MEDICARE, SELFPAY ==
[2019-12-10 11:08] VITALS: BMI 33.0
[2025-07-06 16:10] LABS: Microalbumin,Random Urine 27.9 mg/L (<20 mg/L)
== END | disposition home or self-care (01) ==
LOC: LABSPEC 12:28
PROVIDERS: PCP Family Medicine; Visit Provider Family Medicine
DX: R55 Syncope and collapse (principal); Z79.899 Other long term (current) drug therapy
CPT/HCPCS: 82043; 87086; 87088